=== PATIENT | female | born 1985 | race Hispanic/Latino ===

== ENCOUNTER 2022-06-23 00:13 | Day surgery (SDC) | payer OTHER, SELFPAY ==
[2022-06-09 14:24] VITALS: BMI 45.2
--- NOTE | 2022-06-09 14:27 | SUR.PREOP ---
Report to the Outpatient Waiting Room, entrance under the green pavilion located off [facility], at time _0845 on date _06/23/22 . Planned Procedure Time: _1045 . Time changes happen often and if your time is changed the preop area will call you the afternoon before. - You and your visitor will be asked to self-screen and do not enter if you have any COVID symptoms. - Only one visitor is requested with a max of two and NO children visitors are allowed at this time. - The patient visitor may be requested to leave or wait in car when not with patient due to distancing restrictions. - A mask is optional within the hospital. Patients may have clear liquids (water, carbonated beverages, clear teas, apple juice) until 3 hours prior to surgery with a maximum of 20 ounces. - No food from midnight until time of surgery - Infants may have breast milk until 4 hours before surgery, formula 6 hours prior to surgery. - Children will be allowed to drink immediately following surgery. If applicable, please bring a bottle or sippy cup to assist with drinking. Juice, water, soda, and popsicles are readily available. For infants on formula, please bring formula the day of surgery. Pacifiers are allowed. Take the following medications with a SIP of water the morning of surgery: ___n/a Medications to discontinue per physician n/a Date to take last dose__n/a Please no make-up, nail belgian, hairspray, perfume, deodorant, or body powder the day of surgery. No jewelry (including any body piercings) or valuables the day of surgery, leave them at home. Please take a shower or bath the night before, or the morning of, surgery with an antibacterial soap. Wear comfortable, loose fitting clothing. Children are encouraged to wear pajamas. - Jewelry must be removed prior to entering the operating room. Rings and piercings that are not removed may be cut off. - The hospital will not accept responsibility for valuables. - Please leave all valuables, including medications, at home the day of surgery. If you are going home after surgery, a licensed auto parts delivery driver must drive you home. - NO public transportation without another adult if you receive anesthesia. - We recommend that an adult stay with you for 24 hours following discharge. - We also recommend that you do not drive, make important decision, drink alcoholic beverages, or take any drugs that were not prescribed by your health care provider for at least 24 hours after your discharge time. For Pediatric surgeries, we recommend two adults accompany the child home. Follow any additional instructions given to you from your surgeon. If you or anyone in your household have experienced Covid symptoms in the past week, please notify your surgeon or the nurse liaison at the phone number below for possible testing. Telephone instructions given to KRISHNA ÁLVAREZ__and asked if any additional questions and then verbalized understanding. Patient advised to call surgeon office or pre surgery nurse liaison [phone] if any additional questions.
--- NOTE | 2022-06-23 07:15 | PM.IMHP ---
H&P: HPI History of Present Illness Date/Time: 06/23/22 07:15 37-year-old female presents for treatment of heavy irregular vaginal bleeding. States her cycles are 5-7 days 3-5 days heavy she denies significant bleeding between her periods. Hormonal manipulation not option as she feels poorly with any type of estrogen/progesterone. Has had tubal ligation in the past. Chief Complaint: Menorrhagia Review of Systems Review of Systems: All systems reviewed & are unremarkable except as noted in HPI and below PMFSH Past Medical History Medical History Anxiety disorder Asthma Depression Surgical History Surgical History H/O bilateral salpingectomy History of excision of mass excision lipoma on upper back Hx LEEP (loop electrosurgical excision procedure), cervix, 2011 Family History Family History Mother Family history of thyroid disease Family history of obesity Sibling Family history of obesity Depression Father Family history of alcoholism Malignant neoplasm of prostate Social History Social History Smoking status: Never smoker Alcohol intake: current Alcohol use details: occasionally,once a month Substance use: never Substance use type: does not use Living arrangements: with family Additional living arrangements comments: Additional occupation/education comments: [employer] Gender identity (if verbalized by the patient): Female Sexual Orientation (if Verbalized by the Patient): Straight or Heterosexual Spiritual care concerns: No Meds Home Medications and Allergies Home Medications Medication Instructions Recorded Confirmed Type alprazolam 0.25 mg tablet 0.25 mg PO PRN PRN Insomnia 01/12/22 06/09/22 History montelukast 10 mg tablet 10 mg PO DAILY 01/12/22 06/09/22 History sertraline 100 mg tablet 100 mg PO HS 01/12/22 06/09/22 History sertraline 50 mg tablet 50 mg PO HS 01/12/22 06/09/22 History trazodone 100 mg tablet 100 mg PO QHS 01/12/22 06/09/22 History zolpidem 10 mg tablet 5 mg PO QHS 01/12/22 06/09/22 History albuterol sulfate 90 mcg/actuation 1 inh inhalation PRN PRN Shortness 03/07/22 06/09/22 History breath activated powder inhaler Of Breath Allergies Allergy/AdvReac Type Severity Reaction Status Date / Time No Known Allergies Allergy Verified 06/09/22 14:03 Exam Const: General: cooperative and healthy appearing Resp: Effort & Inspection: normal respiratory effort Auscultation: clear to auscultation bilaterally Cardio: Rate: regular rate Rhythm: regular rhythm GI: Inspection: normal to inspection Auscultation: normal bowel sounds : External Female Exam: normal external appearance Speculum Exam - Vagina: normal appearance of the vagina Speculum Exam - Cervix: normal appearance of the cervix Bimanual exam- vagina & uterus: normal bimanual exam Bimanual Exam- Adnexa, other: normal adnexae Assessment and Plan Assessment and plan (1) Menorrhagia: Code(s): N92.0 - Excessive and frequent menstruation with regular cycle Status: Acute Plan 1. Proceed with hysteroscopy with endometrial ablation. Does not need tissue sampling as EMB was done in the office.
--- NOTE | 2022-06-23 07:18 | WPDHPUPDATE1 ---
History and Physical Update Update Date/Time: 06/23/22 07:18 History and Physical has been reviewed, including an updated exam of the patient. There are NO changes in the patient's condition. Risks, benefits, and alternatives have been discussed and questions answered. Patient agrees to proceed with procedure.
[2022-06-23 08:50] VITALS: BP 127/74; PULSE 86; RESP 20; TEMP 36.4; O2SAT 100
[2022-06-23] MEDS: ACETAMINOPHEN 500 MG TABLET 1000 MG PO (09:30)
--- NOTE | 2022-06-23 09:51 | WPDANESEPPF ---
Anes - Initial Pre Proc Eval Procedure: Operation Date: 06/23/22 10:45 Proposed Procedures p Hysteroscopy Dilation and Curettage, Avani Endometrial Ablation - Bowen Treadwell MD Date/Time: 06/23/22 09:51 Surgeon: Bowen Treadwell MD Pre Op Diagnosis: menometrorrhagia Patient Data Age: 37 Gender: F Height: 1.6 m Weight: 119.3 kg Last Vital Signs Temp 36.4 C L 06/23/22 08:50 Pulse 86 06/23/22 08:50 Resp 20 06/23/22 08:50 BP 127/74 06/23/22 08:50 Pulse Ox 100 06/23/22 08:50 O2 Del Method Room Air 06/23/22 08:50 Allergies Allergy/AdvReac Type Severity Reaction Status Date / Time No Known Allergies Allergy Verified 06/23/22 09:10 Home Medications Medication Instructions Recorded Confirmed Type alprazolam 0.25 mg tablet 0.25 mg PO PRN PRN Insomnia 01/12/22 06/23/22 History montelukast 10 mg tablet 10 mg PO DAILY 01/12/22 06/23/22 History sertraline 100 mg tablet 100 mg PO HS 01/12/22 06/23/22 History sertraline 50 mg tablet 50 mg PO HS 01/12/22 06/23/22 History trazodone 100 mg tablet 100 mg PO QHS 01/12/22 06/23/22 History zolpidem 10 mg tablet 5 mg PO QHS 01/12/22 06/23/22 History albuterol sulfate 90 mcg/actuation 1 inh inhalation PRN PRN Shortness 03/07/22 06/23/22 History breath activated powder inhaler Of Breath Patient hx anesthesia problems: none Family hx anesthesia problems: none Results Review: All pre-operative results and documents have been reviewed as part of the pre-operative evaluation. [facility] Past Medical History Medical History Anxiety disorder Asthma Depression Surgical History Surgical History H/O bilateral salpingectomy History of excision of mass excision lipoma on upper back Hx LEEP (loop electrosurgical excision procedure), cervix, 2011 Family History Family History Mother Family history of thyroid disease Family history of obesity Sibling Family history of obesity Depression Father Family history of alcoholism Malignant neoplasm of prostate Social History Social History Smoking status: Never smoker Alcohol intake: current Alcohol use details: occasionally,once a month Substance use: never Substance use type: does not use Living arrangements: with family Additional living arrangements comments: Additional occupation/education comments: [employer] Gender identity (if verbalized by the patient): Female Sexual Orientation (if Verbalized by the Patient): Straight or Heterosexual Spiritual care concerns: No Anes - Eval Final PreProcedure Day of Procedure 06/23/22 09:51 Patient weight: morbidly obese Heart: regular rate and rhythm Lungs: clear to auscultation Airway: Mallampati scale class II Neurological: alert and oriented Last oral intake: >/= 8 hours ASA classification: III Emergent: no Anesthetic plan: proceed Anesthesia type and monitoring: general GIVS and standard monitoring Results Review: All pre-operative results and documents have been reviewed as part of the pre-operative evaluation. Informed Consent: The patient's anesthetic plan and its attendant risks and benefits were discussed with the patient/family/POA. Questions were solicited and answers provided to the satisfaction of the patient/family/POA.
[2022-06-23] MEDS: LACTATED RINGERS 1,000 ML 30 ML IV CONT (10:00)
[2022-06-23] MEDS: ceFAZolin 2 GM/D5W 50 ML 2 GM/50 ML BAG IVPB (10:31)
--- NOTE | 2022-06-23 10:51 | W.PM.PROC2 ---
Procedure Note - Detailed Date of Procedure 06/23/22 Pre-op Diagnosis menometrorrhagia Post-op Diagnosis Same Procedure Performed 1. Hysteroscopy 2. Endometrial ablation Surgeon Bowen Treadwell MD Anesthesia MAC Findings No endometrial abnormalities Description of Procedure Patient was prepped and draped in usual manner for this procedure. Cervix was dilated to allow the hysteroscope be placed, at which point no abnormalities were appreciated. Avani instrument was placed in the intrauterine cavity, cavity assessment was performed, and instrument was activated. At the end of the procedure thorough destruction was noted throughout. Patient was sent to recovery room in stable condition. Estimated Blood Loss 10 Drains No Packing No Pathology None sent Complications No immediate complications Condition Stable Disposition PACU [facility] Billing Surgery - Charge Forward: Surgery Billing
[2022-06-23 11:02] VITALS: BP 154/79; PULSE 88; RESP 14; O2SAT 93
[2022-06-23 11:32] VITALS: BP 136/95; PULSE 72; RESP 16
--- NOTE | 2022-06-23 11:46 | SUR.PHASEII ---
PT MEETS DISCHARGE CRITERIA AND IS WAITING ON HER RIDE
== END 2022-06-23 11:50 | disposition home or self-care (01) ==
PROVIDERS: PCP Physician Assistant; Visit Provider Obstetrics & Gynecology
PROC: 0U5B8ZZ Destruction of Endometrium, Via Natural or Artificial Opening Endoscopic (ICD-10-PCS; CPT 58563; principal; 2022-06-23 10:45)
DX: N92.1 Excessive and frequent menstruation with irregular cycle (principal); J45.909 Unspecified asthma, uncomplicated; F41.9 Anxiety disorder, unspecified; F32.A Depression, unspecified; Z79.51 Long term (current) use of inhaled steroids; E66.01 Morbid (severe) obesity due to excess calories; Z68.42 Body mass index [BMI] 45.0-49.9, adult
CPT/HCPCS: 58563; A9270; J0690; J2250; J2704; J3010; J7120

== ENCOUNTER 2022-10-08 08:28 | Emergency (ER) | payer OTHER, SELFPAY ==
[2022-10-08 08:46] VITALS: BP 140/87; PULSE 95; RESP 18; TEMP 36.4; O2SAT 100
--- NOTE | 2022-10-08 08:48 | ED.URI ---
HPI - URI/Sore Throat General Chief Complaint: Upper Respiratory Infection Stated Complaint: congestion,bilateral ear discomfort Time Seen by Provider: 10/08/22 08:45 Source: patient Mode of arrival: ambulatory Limitations: no limitations History of Present Illness HPI Narrative: Judie is a 37-year-old female patient presenting to the clinic today with complaints of congestion, bilateral ear pain, sinus pressure, and productive cough. She reports she is blowing out right green nasal drainage. She thinks she may have a sinus infection. Symptoms have been ongoing for 3 days. No known fever or chills. MD elicited complaint: cough, sore throat, rhinorrhea, nasal congestion and sinus pain Related Data Home Medications Medication Instructions Recorded Confirmed alprazolam 0.25 mg tablet 0.25 mg PO PRN PRN Insomnia 01/12/22 07/08/22 montelukast 10 mg tablet 10 mg PO DAILY 01/12/22 07/08/22 sertraline 100 mg tablet 100 mg PO HS 01/12/22 07/08/22 sertraline 50 mg tablet 50 mg PO HS 01/12/22 07/08/22 trazodone 100 mg tablet 100 mg PO QHS 01/12/22 07/08/22 zolpidem 10 mg tablet 5 mg PO QHS 01/12/22 07/08/22 albuterol sulfate 90 mcg/actuation 1 inh inhalation PRN PRN Shortness 03/07/22 07/08/22 breath activated powder inhaler Of Breath Allergies Allergy/AdvReac Type Severity Reaction Status Date / Time No Known Allergies Allergy Verified 10/08/22 08:53 Review of Systems Review of Systems: Pertinent positives per HPI. Patient denies any fever, chills, rash, headache, visual changes, dizziness, cough, shortness of breath, chest pain, palpitations, nausea, vomiting, diarrhea, constipation, abdominal pain, or any urinary issues. [facility] Past Medical History Medical History Anxiety disorder Asthma Depression Surgical History Surgical History H/O bilateral salpingectomy History of excision of mass excision lipoma on upper back History of hysteroscopy (06/23/22) hscope D&C / Ablation Hx LEEP (loop electrosurgical excision procedure), cervix, 2011 Family History Family History Mother Family history of thyroid disease Family history of obesity Sibling Family history of obesity Depression Father Family history of alcoholism Malignant neoplasm of prostate Social History Social History Smoking status: Never smoker Alcohol intake: current Alcohol use details: occasionally,once a month Substance use: never Substance use type: does not use Living arrangements: with family Additional living arrangements comments: Occupation/Education: occupation Additional occupation/education comments: [employer] Gender identity (if verbalized by the patient): Female Sexual Orientation (if Verbalized by the Patient): Straight or Heterosexual Spiritual care concerns: No Comments At the time of my signature, I reviewed and agree with the nursing past medical, surgical, social, and family history. There is no relevant family history pertinent to the patient complaint. Exam Narrative: General: Well-developed, well nourished, in no apparent distress Head: Normocephalic, atraumatic Eyes: Pupils equally round and reactive to light bilaterally, EOM intact, sclera and conjunctive clear, no discharge, lids normal Ears: TMs intact and clear, ear canals clear, no drainage, grossly hearing normal. Nose: Nares patent, no discharge, no inflammation, no sinus tenderness. Mouth: Oral pharynx without lesions or masses, good dentition, MMM. Neck: Supple, trachea midline, no enlargement of anterior or posterior cervical nodes, no thyroid masses or goiter palpable. Cardio: Regular rate and rhythm, s1 and s2 normal, no murmur appreciated. Resp: Clear to ausc
--- NOTE | 2022-10-08 08:57 | PC.NURSE ---
Patient denies to give updated medical history at this time. Patient states that there is nothing that is relevant to this visit . Patient educated on importance of providing medical history in order to give best care. Patient still declines to provide updated history at this time.
== END 2022-10-08 08:54 | disposition home or self-care (01) ==
PROVIDERS: Emergency Provider Nurse Practitioner Family; PCP Physician Assistant
DX: H66.92 Otitis media, unspecified, left ear (principal); J06.9 Acute upper respiratory infection, unspecified; J45.909 Unspecified asthma, uncomplicated; F41.9 Anxiety disorder, unspecified; F32.A Depression, unspecified
CPT/HCPCS: 99213; G0463

== ENCOUNTER 2024-02-19 14:53 | Outpatient (CLI) | payer OTHER, SELFPAY ==
--- NOTE | ~2024-02-19 | MM_ITS ---
EXAMINATION: MM screening bc BI w [employer] HISTORY: Screening TECHNIQUE: Craniocaudal and mediolateral oblique 3-D tomosynthesis images were obtained and synthetic 2-D images were generated. CAD analysis was submitted and interpreted. COMPARISON: No prior mammogram is available for comparison at this institution. BREAST PARENCHYMAL COMPOSITION: There are scattered areas of fibroglandular density. FINDINGS: There is no evidence of suspicious mass, calcification, or architectural distortion to sugg est malignancy in either breast. There has been no suspicious interval change. IMPRESSION: 1. No mammographic evidence of malignancy. 2. Recommend routine screening mammography in one year. BI-RADS Category 1: Negative Reviewed, dictated and finalized at location B.
== END 2024-02-19 14:54 | disposition home or self-care (01) ==
LOC: ANHIMG 14:54
PROVIDERS: PCP Physician Assistant; Visit Provider Obstetrics & Gynecology
DX: Z12.31 Encounter for screening mammogram for malignant neoplasm of breast (principal)
CPT/HCPCS: 77063; 77067

== ENCOUNTER 2024-11-05 13:55 | Emergency (ER) | payer OTHER, SELFPAY ==
--- OUTSIDE RECORDS SUMMARY | 2024-11-05 14:12 | XMS_ITS | Data Portability ---
Author Organization [facility] Kids Note, Main Office Address [address] [place] [address] Assessment No assessment recorded. Plan of Treatment Reminders Order Date Submit Date Provider Last Modified By Organization Details Last Modified Time Details Appointments None recorded. Lab lipid panel, serum 023 023 [facility], [address], [address], 3 13:28:45 CMP, serum or plasma 023 023 [facility], [address], [address], 3 13:28:46 CBC w/ auto diff 023 023 [facility], [address], [address], 3 13:28:48 TSH + free T4, serum 023 023 [facility], [address], [address], 3 13:28:44 HbA1c (hemoglob in A1c), blood 023 023 [facility], [address], [address], 3 13:28:47 insulin, serum 023 023 [facility], [address] [facility] [address], [place], [address], 13:28:49 Referral None recorded. Procedures None recorded. Surgeries None recorded. Imaging None recorded. Medication Orders Bactrim DS 800 mg-160 mg tablet 023 023 [id number], [address] [facility], [place], [place], [id number], 10:05:36 Patient TargetsNo targets recorded. Patient InstructionsNo instructions recorded. Reason for Referral None Reported. Results Created Date Observation Date Name Description Value Unit Range Abnormal Flag Note LastModifiedBy Organization Detail LastModifiedTime 10/27/1910/27/2022 TSH+F REE T4 TSH 2.88 mIU/L normal Refer ence Range > or = 20 Years 0.40- 4.50 Pregn mary Range s First trime ster 0.26- 2.66 Secon d trime ster 0.55- 2.73 Third trime ster 0.43- 2.91 Not Available [facility] [address], [address], 10/27/2022 13:28:44 10/27/1910/27/2022 TSH+F REE T4 T4, free 0.8 NG/dL 0.8-1. 8 normal Not Available [facility] [place] [address] [place], [address], 10/27/2022 13:28:44 10/27/1910/27/2022 LIPID PANEL WITH RATIO S cholesterol, total 200 mg/dL <200 high Not Available [facility] [address] [place], [address], 10/27/2022 13:28:45 10/27/1910/27/2022 LIPID PANEL WITH RATIO S HDL cholesterol 73 mg/dL > or = 50 normal Not Available [facility] [address] [place], [address], 10/27/2022 13:28:45 10/27/19 23 10/27/2022 LIPID PANEL WITH RATIO S triglyceride s 71 mg/dL <150 normal Not Available [address], [address], 10/27/2022 13:28:45 10/27/19 23 10/27/2022 LIPID PANEL WITH RATIO S LDL-choleste rol 111 mg/dL _(magalis c) high Refer ence range : <100 Jovani able range <100 mg/dL for prima ry preve ntion ; <70 mg/dL for patie nts with CHD or diabe tic patie nts with > or = 2 CHD risk facto rs. LDL-C is now calcu lated using the Radha n-Hop kins calcu latio n, which is a valid ated novel metho d provi ding nolan r accur acy than the Fried anirudh equat ion in the estim ation of LDL-C . Radha williamson SS et al. JARAD. 2013; 310(1 9): 2061- 2068 (http ://ed ucati on.Qu estDi Epos. com/f aq/FA Q164) Not Available [address], [address], 10/27/2022 13:28:45 10/27/19 23 10/27/2022 LIPID PANEL WITH RATIO S chol/HDLC ratio 2.7 (calc ) <5.0 normal Not Available [address], [address], 10/27/2022 13:28:45 10/27/19 23 10/27/2022 LIPID PANEL WITH RATIO S LDL/HDL ratio 1.5 (calc ) Below avera ge Risk: <2.34 Twain ge Risk: 2.35- 4.12 Moder ate Risk: 4.13- 5.56 High Risk: >5.57 Not Available [address], [address], 10/27/2022 13:28:45 10/27/19 23 10/27/2022 LIPID PANEL WITH RATIO S non HDL cholesterol 127 mg/dL _(magalis c) <130 normal For patie nts with diabe darline plus 1 major ASCVD risk facto r, treat ing to a non-H DL-C goal of <100 mg/dL (LDL- C of <70 mg/dL ) is consi beto bennett optio n. Not Available [address], [address], 10/27/2022 13:28:45 10/27/19 23 10/27/2022 COMPR EHENS ZABRINA METAB OLIC PANEL glucose 86 mg/dL 65-99 normal Fasti ng refer ence inter han Not Available [address], [address], 10/27/2022 13:28:46 10/27/19 23 10/27/2022 COMPR EHENS ZABRINA METAB OLIC PANEL urea nitrogen (BUN) 12 mg/dL 7-25 normal Not Available [address], [address], 10/27/2022 13:28:46 10/27/19 23 10/27/2022 COMPR EHENS ZABRINA METAB OLIC PANEL creatinine 0.70 mg/dL 0.50-0 .97 normal Not Available [address], [address], 10/27/2022 13:28:46 10/27/19 23 10/27/2022 COMPR EHENS ZABRINA METAB OLIC PANEL eGFR 113 mL/mi n/1.7 3m2 > or = 60 normal The eGFR is based on the CKD-E PI 2020 tara burroughs. To calcu late the new eGFR from a previ ous Creat inine or Cysta tin C resul t, go to https ://kisha cruz.o christiana/bean okeefe/ kdoqi /gfr% 5Fcal culat or Not Available [address], [address], 10/27/2022 13:28:46 10/27/19 23 10/27/2022 COMPR EHENS ZABRINA METAB OLIC PANEL BUN/creatini ne ratio NOT APPLIC ABLE (calc ) 6-22 Not Available [address], [address], 10/27/2022 13:28:46 10/27/19 23 10/27/2022 COMPR EHENS ZABRINA METAB OLIC PANEL sodium 137 mmol/ L 135-14 6 normal Not Available [address], [address], 10/27/2022 13:28:46 10/27/19 23 10/27/2022 COMPR EHENS ZABRINA METAB OLIC PANEL potassium 3.9 mmol/ L 3.5-5. 3 normal Not Available [address], [address], 10/27/2022 13:28:46 10/27/19 23 10/27/2022 COMPR EHENS ZABRINA METAB OLIC PANEL chloride 104 mmol/ L 98-110 normal Not Available [address], [address], 10/27/2022 13:28:46 10/27/19 23 10/27/2022 COMPR EHENS ZABRINA METAB OLIC PANEL carbon dioxide 26 mmol/ L 20-32 normal Not Available [address], [address], 10/27/2022 13:28:46 10/27/19 23 10/27/2022 COMPR EHENS ZABRINA METAB OLIC PANEL calcium 9.2 mg/dL 8.6-10 .2 normal Not Available [address], [address], 10/27/2022 13:28:46 10/27/19 23 10/27/2022 COMPR EHENS ZABRINA METAB OLIC PANEL protein, total 7.1 g/dL 6.1-8. 1 normal Not Available [address], [address], 10/27/2022 13:28:46 10/27/19 23 10/27/2022 COMPR EHENS ZABRINA METAB OLIC PANEL albumin 4.3 g/dL 3.6-5. 1 normal Not Available [address], [address], 10/27/2022 13:28:46 10/27/19 23 10/27/2022 COMPR EHENS ZABRINA METAB OLIC PANEL globulin 2.8 g/dL_ (calc ) 1.9-3. 7 normal Not Available [address], [address], 10/27/2022 13:28:46 10/27/19 23 10/27/2022 COMPR EHENS ZABRINA METAB OLIC PANEL albumin/glob ulin ratio 1.5 (calc ) 1.0-2. 5 normal Not Available [address], [address], 10/27/2022 13:28:46 10/27/19 23 10/27/2022 COMPR EHENS ZABRINA METAB OLIC PANEL bilirubin, total 0.9 mg/dL 0.2-1. 2 normal Not Available [address], [address], 10/27/2022 13:28:46 10/27/19 23 10/27/2022 COMPR EHENS ZABRINA METAB OLIC PANEL alkaline phosphatase 64 U/L 31-125 normal Not Available [address], [address], 10/27/2022 13:28:46 10/27/19 23 10/27/2022 COMPR EHENS ZABRINA METAB OLIC PANEL AST 18 U/L 10-30 normal Not Available [address] [place], [address], 10/27/2022 13:28:46 10/27/19 23 10/27/2022 COMPR EHENS ZABRINA METAB OLIC PANEL ALT 17 U/L 6-29 normal Not Available [facility] [address] [place], [address], 10/27/2022 13:28:46 10/27/19 23 10/27/2022 HEMOG LOBIN A1C hemoglobin A1C 5.0 %_of_ total _HGB <5.7 normal For the purpo se of scree elicia for the prese nce of diabe darline: <5.7% Consi stent with the absen ce of diabe darline 5.7-6 .4% Consi stent with incre ased risk for diabe darline (pred iabet es) > or =6.5% Consi stent with diabe darline This assay resul t is consi stent with a decre ased risk of diabe darline. Curre ntly, no conse nsus exist s regar channing use of hemog lobin A1c for diagn osis of diabe darline in child jose. Accor ding to Ameri can Diabe darline Assoc iatio n (ADA) guide lines , hemog lobin A1c <7.0% repre sents optim al contr ol in non-p regna nt diabe tic patie nts. Diffe rent metri cs may apply to speci fic patie nt popul ation s. Stand ards of Medic al Care in Diabe darline(A DA). Not Available [facility] [address] [place], [address], 10/27/2022 13:28:47 10/27/19 23 10/27/2022 CBC (INCL UDES DIFF/ PLT) white blood cell count 9.3 thous and/u L 3.8-10 .8 normal Not Available [facility] [address] [place], [address], 10/27/2022 13:28:48 10/27/19 23 10/27/2022 CBC (INCL UDES DIFF/ PLT) red blood cell count 4.49 bela on/uL 3.80-5 .10 normal Not Available [address], [address], 10/27/2022 13:28:48 10/27/19 23 10/27/2022 CBC (INCL UDES DIFF/ PLT) hemoglobin 13.5 g/dL 11.7-1 5.5 normal Not Available [address], [address], 10/27/2022 13:28:48 10/27/19 23 10/27/2022 CBC (INCL UDES DIFF/ PLT) hematocrit 40.4 % 35.0-4 5.0 normal Not Available [address], [address], 10/27/2022 13:28:48 10/27/19 23 10/27/2022 CBC (INCL UDES DIFF/ PLT) MCV 90.0 fL 80.0-1 00.0 normal Not Available [facility] [address], [address], 10/27/2022 13:28:48 10/27/19 23 10/27/2022 CBC (INCL UDES DIFF/ PLT) MCH 30.1 pg 27.0-3 3.0 normal Not Available [facility] [address], [address], 10/27/2022 13:28:48 10/27/19 23 10/27/2022 CBC (INCL UDES DIFF/ PLT) MCHC 33.4 g/dL 32.0-3 6.0 normal Not Available [facility] [address], [address], 10/27/2022 13:28:48 10/27/19 23 10/27/2022 CBC (INCL UDES DIFF/ PLT) RDW 13.5 % 11.0-1 5.0 normal Not Available [facility] [address], [address], 10/27/2022 13:28:48 10/27/19 23 10/27/2022 CBC (INCL UDES DIFF/ PLT) platelet count 281 thous and/u L 140-40 0 normal Not Available [address], [address], 10/27/2022 13:28:48 10/27/19 23 10/27/2022 CBC (INCL UDES DIFF/ PLT) MPV 9.3 fL 7.5-12 .5 normal Not Available [address], [address], 10/27/2022 13:28:48 10/27/19 23 10/27/2022 CBC (INCL UDES DIFF/ PLT) absolute neutrophils 5552 cells /uL 1500-7 800 normal Not Available [address], [address], 10/27/2022 13:28:48 10/27/19 23 10/27/2022 CBC (INCL UDES DIFF/ PLT) absolute lymphocytes 3162 cells /uL 850-39 00 normal Not Available [address], [address], 10/27/2022 13:28:48 10/27/19 23 10/27/2022 CBC (INCL UDES DIFF/ PLT) absolute monocytes 512 cells /uL 200-95 0 normal Not Available [address], [address], 10/27/2022 13:28:48 10/27/19 23 10/27/2022 CBC (INCL UDES DIFF/ PLT) absolute eosinophils 28 cells /uL 15-500 normal Not Available [address], [address], 10/27/2022 13:28:48 10/27/19 23 10/27/2022 CBC (INCL UDES DIFF/ PLT) absolute basophils 47 cells /uL 0-200 normal Not Available [facility] [address], [address], 10/27/2022 13:28:48 10/27/19 23 10/27/2022 CBC (INCL UDES DIFF/ PLT) neutrophils 59.7 % normal Not Available [facility] [address], [address], 10/27/2022 13:28:48 10/27/19 23 10/27/2022 CBC (INCL UDES DIFF/ PLT) lymphocytes 34.0 % normal Not Available [facility] [address], [address], 10/27/2022 13:28:48 10/27/19 23 10/27/2022 CBC (INCL UDES DIFF/ PLT) monocytes 5.5 % normal Not Available [facility] [address], [address], 10/27/2022 13:28:48 10/27/19 23 10/27/2022 CBC (INCL UDES DIFF/ PLT) eosinophils 0.3 % normal Not Available [facility] [address], [address], 10/27/2022 13:28:48 10/27/19 23 10/27/2022 CBC (INCL UDES DIFF/ PLT) basophils 0.5 % normal Not Available [facility] [address], [address], 10/27/2022 13:28:48 10/27/19 23 10/27/2022 INSUL IN insulin 13.5 uIU/m L normal Refer ence Range < or = 18.4 Risk: Optim al < or = 18.4 Moder ate NA High >18.4 Adult cardi ovasc ular event risk categ ory cut point s (opti mal, moder ate, high) are based on Insul in Refer ence Inter han stud[facility]. Not Available [facility] [address], [place], [address], 10/27/2022 13:28:48 10/03/19 21 10/02/2020 US, pelvi s, trans abdom inal + trans vagin al No observ ation record ed. [id number] [facility] [address] [place], [address], 08/24/2022 03:00:42 10/03/19 21 10/02/2020 US, obste tric, trans vagin al No observ ation record ed. [id number] [facility] [address] [place], [address], 08/24/2022 03:00:42 10/03/19 21 10/02/2020 US, [facility] [address] [place] [address] [phone] Patien t Name: KRISHNA HOPKINS Access ion #: [id number] Sex: F : 1984 2 Locati on: RAD Attend ing Physic jose: JEANINE COOPER Orderi Physic jose: JEANINE COOPER Exam Date: 10/03/19 21 8:41 AM Exam Name: US TRANSV AGINAL Admitt ing Diagno sis(es ): RADIOL OGY REPORT - FINAL EXAM: US TRANSV AGINAL HISTOR Y: right lower quadra nt pain COMPAR JACQUELINE: None availa ble. TECHNI QUE: Transv aginal pelvic ultras ound was perfor med. FINDIN GS: The anteve rted uterus measur es 7.3 x 4.3 x 4.6 cm. The endome trium measur es 12.4 mm in thickn ess. The right ovary measur es 1.8 x 1.2 x 1.7 cm. The left ovary measur es 2.8 x 1.4 x 2.2 cm. Both ovarie s are normal in appear ance and demons trate normal color Dopple r blood flow. Trace fluid is noted adjace nt to each ovary. Page 1 of 2 [facility] mayito Name: KRISHNA HOPKINS ion #: [id number] Sex: F : 1984 2 Exam Date: 10/03/19 8:41 AM Exam Name: US TRANSV AGINAL Admitt ing Diagno sis(es ): IMPRES JUAN C: Grossl y normal sonogr aphic appear ance of the uterus and ovarie s. Create d and electr onical ly signed by: Vinnie Rivera ch, DO Signed Date: 10/03/19 9:07 AM (CT) Dictat ed by: Vinnie Rivera ch, DO (CT) (CT) Page 2 of 2 [id number] [facility] ([facility] [address] [place], [address], 08/24/2022 03:00:42 Result Notes None recorded. Problems Name Problem SNOMED Code Status Onset Date Resolution Date Notes Provider Name and Address Organization Details Recorded Time Acute sinusitis 54655603 Active 2021 Not Available [facility] 3 02:53:22 Past history of miscarriag e 782119976 Active Not Available [facility] 3 02:53:22 Mood swings 22180923 Active Not Available [facility] 3 02:53:22 Bruxism 409787907 Active Not Available [facility] 3 02:53:22 Insomnia 087273653 Active Not Available [facility] 3 02:53:22 Asthma 125913897 Active Not Available [facility] 3 02:53:22 Benign essential hypertensi on complicati ng , childbirth and the puerperium - not delivered 473033089 Completed Not Available [facility] 3 02:53:22 Mixed anxiety and depressive disorder 259912450 Active RADHA Portillo null, [employer] 3 11:50:38 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 Procedures Surgical History Date Name Laterality Status Provider Name and Address Organization Details Recorded Time 2 dilation and curettage completed RADHA Portillo [employer] 10/20/2022 09:31:37 0 SECURITY RISK ANALYST Surgery completed Not Available [facility] 08/25/19 02:47:42 0 Date of Last Pap Smear completed Not Available [facility] 08/24/2022 02:47:39 SECURITY RISK ANALYST Surgery completed Not Available [facility] 08/24/2022 02:47:42 Imaging Results Imaging Date Name Status LastModified by Organization Details LastModified Time 10/02/2020 US, pelvis, transabdominal + transvaginal completed [id number] [facility] [address] [place], [address], 08/24/2022 03:00:42 10/02/2020 US, obstetric, transvaginal completed [id number] [facility] [address] [place], [address], 08/24/2022 03:00:42 10/02/2020 US, transvaginal completed [id number] [facility] ([facility] [address] [place], [address], 08/24/2022 03:00:42 Procedure Notes None recorded. Medical Equipment None Reported. Allergies No known drug allergies Medications Name Sig Start Date Stop Date Status Note LastModified by Organization Details LastModified Time buspirone 5 mg tablet Take 1 tablet twice a day by oral route. 12/28 completed Not Available Not Available Not Available trazodone 50 mg tablet take 1-2 tablets po qhs active Not Available Not Available No t Available azithromyci n 250 mg tablet TAKE 2 TABLETS (500 MG) BY ORAL ROUTE ONCE DAILY FOR 1 DAY THEN 1 TABLET (250 MG) BY ORAL ROUTE ONCE DAILY FOR 4 DAYS active Not Available Not Available No t Available ibuprofen 800 mg tablet 09/22 completed Not Available Not Available Not Available fluconazole 150 mg tablet TAKE 1 TABLET BY MOUTH EVERY DAY active Not Available Not Available No t Available benzonatate 200 mg capsule Take 1 capsule 3 times a day by oral route as needed. active Not Available Not Available No t Available citalopram 10 mg tablet active Not Available Not Available Not Available hydrocodone 5 mg-acetamin ophen 325 mg tablet active Not Available Not Available No t Available ondansetron HCl 4 mg tablet TAKE ONE TABLET BY MOUTH EVERY 6 HOURS NEEDED active Not Available Not Available No t Available prednisone 20 mg tablet TAKE 2 TABLETS BY MOUTH DAILY FOR 5 DAYS 10/19 completed Not Available Not Available Not Available sertraline 100 mg tablet TAKE 1 TABLET BY MOUTH EVERY DAY active Not Available Not Available No t Available Pyridium 200 mg tablet Take 1 tablet 3 times a day by oral route for 3 days. 10/09 completed Not Available Not Available Not Available Anucort-HC 25 mg suppository UNWRAP AND INSERT 1 SUPPOSITO RY RECTALLY TWICE DAILY 10/19 completed Not Available Not Available Not Available ciprofloxac in 500 mg tablet Take 1 tablet every 12 hours by oral route. active Not Available Not Available No t Available sulfamethox azole 800 mg-trimetho prim 160 mg tablet TAKE 1 TABLET BY MOUTH EVERY 12 HOURS active Not Available Not Available No t Available oxycodone-a cetaminophe n 5 mg-325 mg tablet 09/22 completed Not Available Not Available Not Available alprazolam 0.5 mg tablet Take 1 tablet 3 times a day by oral route as needed. active Not Available Not Available No t Available amoxicillin 875 mg tablet TAKE 1 TABLET BY MOUTH EVERY 12 HOURS 10/19 completed Not Available Not Available Not Available alprazolam 0.25 mg tablet TAKE 1 TABLET BY MOUTH EVERY DAY NEEDED active Not Available Not Available No t Available trazodone 100 mg tablet TAKE 1 TABLET BY MOUTH AT BEDTIME NEEDED active Not Available Not Available No t Available benzonatate 100 mg capsule 08/29 completed Not Available Not Available Not Available hydrocodone 7.5 mg-acetamin ophen 325 mg tablet active Not Available Not Available No t Available cephalexin 500 mg capsule 08/29 completed Not Available Not Available Not Available pantoprazol e 40 mg tablet,mk yed release take one tab daily 10/09 completed Not Available Not Available Not Available oseltamivir 75 mg capsule Take 1 capsule every day by oral route for 10 days. 10/19 completed Not Available Not Available Not Available orphenadrin e citrate ER 100 mg tablet,exte nded release active Not Available Not Available Not Available sertraline 25 mg tablet 01/02 completed Not Available Not Available Not Available diclofenac sodium 75 mg tablet,mk yed release Take 1 tablet twice a day by oral route with meals. active Not Available Not Available No t Available montelukast 10 mg tablet TAKE 1 TABLET BY MOUTH DAILY active Not Available Not Available No t Available acyclovir 200 mg capsule Take 1 capsule po daily, but may increase to 2 tabs po bid for 3-5 days PRN fever blister flare up active Not Available Not Available No t Available zaleplon 10 mg capsule 01/02 completed Not Available Not Available Not Available zolpidem 5 mg tablet TAKE 1 TABLET BY MOUTH AT BEDTIME NEEDED active Not Available Not Available No t Available Low-Ogestre l (28) 0.3 mg-30 mcg tablet TAKE ONE TABLET BY MOUTH EVERY DAY 08/29 completed Not Available Not Available Not Available zolpidem 10 mg tablet TAKE 1 TABLET BY MOUTH EVERY DAY AT BEDTIME 10/19 completed Not Available Not Available Not Available methylpredn isolone 4 mg tablets in a dose pack FOLLOW PACKAGE DIRECTION S active Not Available Not Available No t Available albuterol sulfate HFA 90 mcg/actuati on aerosol inhaler INHALE 2 PUFFS BY MOUTH EVERY 6-8 HOURS NEEDED active Not Available Not Available No t Available Tussionex Pennkinetic ER 10 mg-8 mg/5 mL suspension, extended release Take 5 mL every 12 hours by oral route. 04/22 completed Not Available Not Available Not Available ondansetron 4 mg disintegrat ing tablet 01/02 completed Not Available Not Available Not Available cefdinir 300 mg capsule Take 2 capsules every day by oral route. 04/22 completed Not Available Not Available Not Available sertraline 50 mg tablet TAKE 1 TABLET BY MOUTH EVERY DAY active Not Available Not Available No t Available doxycycline hyclate 100 mg tablet 08/29 completed Not Available Not Available Not Available naproxen 500 mg tablet active Not Available Not Available Not Available metoclopram genny 10 mg tablet Take 1 tablet every 6 hours by oral route as needed. active Not Available Not Available No t Available amoxicillin 875 mg-potassiu m clavulanate 125 mg tablet TAKE 1 TABLET BY MOUTH EVERY 12 HOURS FOR 10 DAYS 10/19 completed Not Available Not Available Not Available hydroxyzine pamoate 25 mg capsule 01/02 completed Not Available Not Available Not Available Sprintec (28) 0.25 mg-0.035 mg tablet active Not Available Not Available Not Available bupropion HCl XL 150 mg 24 hr tablet, extended release 08/29 completed Not Available Not Available Not Available nitrofurant oin monohydrate /macrocryst als 100 mg capsule Take 1 capsule every 12 hours by oral route. 01/02 completed Not Available Not Available Not Available duloxetine 30 mg capsule,del ayed release 01/02 completed Not Available Not Available Not Available eszopiclone 3 mg tablet TAKE ONE TABLET BY MOUTH EVERY NIGHT AT BEDTIME 01/02 completed Not Available Not Available Not Available dexmethylph enidate ER 10 mg capsule,ext ended release [id number] active Not Available Not Available Not Available zolpidem ER 12.5 mg tablet,exte nded release,mul tiphase Take 1 tablet every day by oral route at bedtime. 01/02 completed Not Available Not Available Not Available Zyrtec daily 09/04 completed Not Available Not Available Not Available aripiprazol e 2 mg tablet TAKE 1 TABLET BY MOUTH EVERY DAY active Not Available Not Available No t Available Xyzal 01/02 completed Not Available Not Available Not Available Adacel (Tdap Adolesn/Jose Cruz lt)(PF)2 Lf-(2.5-5-3 -5)-5 Lf/0.5 mL IM syringe active Not Available Not Available N ot Available Gildess FE 07/15 (28) 1 mg-20 mcg (21)/75 mg (7) tablet Take 1 tablet every day by oral route. active Not Available Not Available No t Available Se- 19 (with docusate) 29 mg iron-1 mg-25 mg tablet Take 1 tablet every day by oral route. active Not Available Not Available No t Available Se-Manuel 19 Chewable 29 mg iron-1 mg tablet Take 1 tablet every day by oral route. active Not Available Not Available No t Available ZzzQuil takes one daily 2015 active Not Available Not Available Not Avai lable Nasacort 55 mcg nasal spray aerosol 2 sprays each nostril each evening. 02/28 completed Not Available Not Available Not Available Fluvirin 9964-3837(P F) 45 mcg (15 mcg x3)/0.5 mL intramuscul ar syringe active Not Available Not Available N ot Available albuterol sulfate 90 mcg/actuati on breath activated powder inhaler Inhale 2 puffs every 4 hours by inhalatio n route as needed. 02/28 completed Not Available Not Available Not Available Fluzone Quad 6507-7516 60 mcg (15 mcg x 4)/0.5 mL IM suspension 12/28 completed Not Available Not Available Not Available Fluzone Quad 6542-4131 60 mcg (15 mcg x 4)/0.5 mL IM suspension 11/02 completed Not Available Not Available Not Available Fluzone Quad (PF) 60 mcg (15 mcg x 4)/0.5 mL IM syringe PHARMACY ADMINISTE RED active Not Available Not Available No t Available Vitals Date Recorded Body height Body temperature Body mass index (BMI) Body weight Respiratory rate Oxygen saturation Oxygen saturation in Arterial blood by Pulse oximetry Heart rate Systolic blood pressure Diastolic blood pressure Provider Name and Address Organization Details Last Updated DateTime 3 160.02 cm 98 [degF] 37.4 kg/m2 96950.9 9 g 16 /min 98 % 98 % 78 /min 128 mm[Hg] 80 mm[Hg] RADHA Portillo [facility] Kids Note 3 09:33:06 Date Recorded Body mass index (BMI) Body height Body temperature Body weight Systolic blood pressure Diastolic blood pressure Provider Name and Address Organization Details Last Updated DateTime 1 45.7 kg/m2 160.02 cm 98.3 [degF] 194261. 83 g 122 mm[Hg] 74 mm[Hg] Not Available [facility] 3 02:50:39 Date Recorded Body mass index (BMI) Body height Body temperature Body weight Systolic blood pressure Diastolic blood pressure Provider Name and Address Organization Details Last Updated DateTime 1 46.4 kg/m2 160.02 cm 97.3 [degF] 225929. 2 g 126 mm[Hg] 78 mm[Hg] Not Available [facility] 3 02:50:39 Date Recorded Body mass index (BMI) Body height Oxygen saturation Oxygen saturation in Arterial blood by Pulse oximetry Heart rate Respiratory rate Body temperature Body weight Systolic blood pressure Diastolic blood pressure Provider Name and Address Organization Details Last Updated DateTime 1 46.5 kg/m2 160.02 cm 96 % 96 % 89 /min 16 /min 98 [degF] 434006. 64 g 128 mm[Hg] 82 mm[Hg] Not Available [facility] 3 02:50:39 Date Recorded Body mass index (BMI) Body height Oxygen saturation Oxygen saturation in Arterial blood by Pulse oximetry Heart rate Body temperature Body weight Systolic blood pressure Diastolic blood pressure Provider Name and Address Organization Details Last Updated DateTime 1 46.6 kg/m2 160.02 cm 98 % 98 % 80 /min 98 [degF] 086969. 87 g 120 mm[Hg] 80 mm[Hg] Not Available [facility] 3 02:50:39 Social History Question Answer Notes LastModified by Organizat ion Details LastModified Time Tobacco Smoking Status Never Smoker KIKA Lindsay, [facility] Kids Note 10/20/2022 09:26:28 What Is Your Level Of Caffeine Consumption? Moderate [id number] Information not available 08/24/2022 How Much Tobacco Do You Chew? None [id number] Information not available 08/24/2022 In The 14 Days Before Symptom Onset, Have You Had Close Contact With A Laboratory-confirm ed COVID-19 While That Case Was Ill? No Information n ot available 10/20/2022 In The 14 Days Before Symptom Onset, Have You Had Close Contact With A Person Who Is Under Investigation For COVID-19 While That Person Was Ill? No Information not available 10/20/2022 What Type Of Diet Are You Following? REGULAR [id number] Information not available 08/24/2022 Which Illicit Or Recreational Drugs Have You Used? None Information not available 10/20/2022 Have There Been Any Changes To Your Family Or Social Situation? No Information no t available 10/20/2022 Do You Use Insect Repellent Routinely? No Information not available 10/20/2022 Do You Have Smoke And Carbon Monoxide Detectors In Your Home? Yes Information not available 10/20/2022 How Much Tobacco Do You Smoke? No [id number] Information not available 08/24/2022 Do You Use Sunscreen Routinely? Yes Information not available 10/20/2022 Have You Recently Traveled Abroad? No Information not available 10/20/2022 Do You Have Any Dietary Restrictions? No Information not available 10/20/2022 Sex: Unknown Functional Status Question Answer Note LastModified by Organizat ion Details LastModified Time Do you use any illicit or recreational drugs? No Information not available 10/20/2022 Do you or have you ever used any other forms of tobacco or nicotine? No Information not available 10/20/2022 What is your level of alcohol consumption? Occasional [id number] Information not available 08/24/2022 Do you or have you ever used smokeless tobacco? Never used smokeless tobacco [id number] Information not available 08/24/2022 Are you currently employed? 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 Never used electronic cigarettes Information not available 10/20/2022 What is your exercise level? Occasional [id number] Information not available 08/24/2022 Mental Status None recorded. Family History Relationship Description Onset Age of this Age Resolved Age Notes LastModified by Organization Details LastModified Time Father Carcinoma of prostate Not available 2022 09:26:28 Unspecified Relation Hypertensive disorder [id number] Not available 08/24/2022 02:47:46 Unspecified Relation Myocardial infarction [id number] Not available 08/24/2022 02:47:46 Mother Malignant neoplasm of skin [id number] Not available 10/20 09:33:50 Notes:no new Medical History Condition Response ANXIETY DISORDER Y ASTHMA Y URINARY/BLADDER/KIDNEY PROBLEMS Y OTHER # 1 Y SLEEP DISORDER Y DEPRESSION (INCLUDING POST ) Y HEARTBURN / REFLUX Y Gynecological History Statement/Question Response Abnormal Pap Y Date of Last Pap Smear 08/30/2019 Current Control Method Sterilizati on Age at Menarche 10 Date of LMP 10/02/2020 Obstetrics History GPAL:G 2 P 1 0 1 1 Type Value Full Term 1 Spontaneous 1 Living 1 Total 2 Immunizations Vaccine Type Date Status Note Provider Nam e and Address Organization Details Recorded Time COVID-19, mRNA, LNP-S, PF, 100 mcg/0.5mL dose or 50 mcg/0.25mL dose 1 completed Not Available [facility] 08/24/2022 03:00:05 COVID-19, mRNA, LNP-S, PF, 100 mcg/0.5mL dose or 50 mcg/0.25mL dose 1 completed Not Available [facility] 08/24/2022 03:00:06 influenza, unspecified formulation 0 completed Not Available [facility] 08/24/2022 03:00:06 influenza, unspecified formulation 5 completed Not Available [facility] 08/24/2022 03:00:06 influenza, unspecified formulation 7 completed Not Available [facility] 08/24/2022 03:00:06 Past Encounters Encounter ID Performer Location Encounter Start Date Encounter Closed Date Diagnosis/Indication Diagnosis SNOMED-CT Code Diagnosis ICD10 Code Diagnosis Note [id number] [facility]_ DEFAULT_1 _1 , 09/22/2020 00:00:00 09/22/2020 09:55:33 [id number] [facility]_ DEFAULT_1 _1 , 10/20/2020 00:00:00 10/20/2020 17:55:52 [id number] BRAYDEN Hill [facility] [address] [place] [address] 11/02/2020 00:00:00 11/20/2020 01:32:32 [id number] BRAYDEN Hill [facility] [address] [place] [address] 05/27/2021 00:00:00 06/22/2021 23:53:16 [id number] BRAYDEN Hill [facility] [address] [place] [address] 10/20/2022 09:21:58 10/20/2022 10:07:40 Adult health examination 533527590 Z00.00 well exam completed. labs ordered Cholesterol screening 27 9787080 Z13.220 Diabetes m ellitus screening 934885357 Z13.1 Long-term drug therapy 523052323 Z79.899 Acute righ t otitis media 915257450 H66.91 rx for bactrim DS bid course since augmentin did not resolve infection after 10 day course from urgent care Body mass index 30+ - obesity 917183982 Z68.37 Health Concerns Section Related Observation LastModified by Organization Detai ls LastModified Time None Recorded Concern Status LastModified by Organization Details LastModified Time None Recorded Advance Directives Directive None Recorded Payers Encounter Date Sequence Insurance Name Policy Number Policy Simons Covered Member ID Simons Member ID Guarantor Name 10/20/[address] [facility] [employer] (PPO) [id number] James Hopkins [id number] Krishna Hopkins Notes Date Note Type Note Provider Name and Address Organization Details Recorded Time 11/03/19 21 text/htm l Anxiety/DepressionReported bypatient.Severity:denies suicidal ideations; able to maintain relationships; does not interfere with activities of daily living Context:no major life stressors Modifying Factors:medications as directed Associated Symptoms:denies homicidal ideations; no significant weight gain; no significant weight loss; no visual/auditory hallucinations; no delusions; no shortness of breath; mood good; no anxiety; no crying spells; no panic; no isolation; sleeping well; appetite good; energy good; no apathy; maintaining functionalityAsthma GuidelinesReported bypatient.Chief Complaint:examination: as a follow-up Onset/Timing:intermittent Severity:does not interfere with normal activitiesNotes:Does need a rf on her singulairInsomniaReported bypatient.Severity:same Duration:intermittent Context:using medications for sleep Modifying Factors:prescription medication Associated Symptoms:no anxiety; no snoring; no depression; no known sleep apnea; no pain; no dyspnea; no urinary frequency; legs do not feel restless Not Available [facility] Kids Note 11/20/2020 01:32:32 05/27/20 21 text/htm l Anxiety/DepressionReported bypatient.Severity:denies suicidal ideations; able to maintain relationships; does not interfere with activities of daily living Context:no major life stressors Associated Symptoms:denies homicidal ideations; no significant weight gain; no significant weight loss; no visual/auditory hallucinations; no delusions; no shortness of breath; mood good; no anxiety; no crying spells; no panic; no isolation; sleeping well; appetite good; energy good; no apathy; maintaining functionality Not Available [facility] [place] [facility] 06/22/2021 23:53:16 10/21/19 23 text/htm l Anxiety/DepressionReported bypatient.Quality:doesnt matter time of day Severity:denies suicidal ideations; able to maintain relationships; does not interfere with activities of daily living Duration:symptoms lasting over 2 weeks Onset/Timing:stable Context:no major life stressors Modifying Factors:rx Associated Symptoms:denies homicidal ideations; no significant weight gain; no significant weight loss; no visual/auditory hallucinations; no delusions; no shortness of breathNotes:stable with psychiatry managing. Wellness BRAYDEN Hill [address] [facility], [facility] [address], [place], [address], [facility] [employer] 10/20/2022 13:19:37 OBGyn Episode No OBEpisode recorded.
--- OUTSIDE RECORDS SUMMARY | 2024-11-05 14:12 | XMS_ITS | Patient Health Record ---
Author Organization [facility] Address [address] [facility] [address] [place] [address] Care Team Providers Care Security Operations Manager Name Role Phone Daniela Cullen Primary Care Provider Luis Sanders Unavailable [phone] Leanne Jeong Unavailable [phone] Letty Casas Unavailable [phone] Migration, Provider Unavailable Unavailable Allergies No Known Allergies Results Component Value Reference Range Notes UDT Reviewed date:08/28/2024 06:06:01 PM Interpretation: Performing Lab: Notes/Report: THC NEG 0 - 50 ng/ml Cocaine NEG 0 - 300 ng/ml Amphetamine NEG 0 - 1000 ng/ml Buprenorphine (BUP) NEG 0 - 10 ng/ml Secobarbital (Bar) NEG 0 - 300 ng/ml Oxazepam (BZO) NEG 0 - 300 ng/ml 5-gpuydtzoww-1,2-eberwakp-5,3-diphenylpyrrolidine (VAIBHAV P) NEG 0 - 300 ng/ml Methamphetamine (MET) NEG 0 - 1000 ng/ml Methylenedioxymethamphetamine (MDMA) NEG 0 - 500 ng/ml Morphine (MOP 300/[id number]) NEG 0 - 300 ng/ml Methadone (MTD) NEG 0 - 300 ng/ml Phencyclidine (PCP) NEG 0 - 25 ng/ml Nortriptyline (TCA) NEG 0 - 1000 ng/ml Oxycodone NEG 0 - 300 ng/ml x NEG 0 - 300 ng/ml Reason For Referral No Information Medications Medication SIG (Take, Route, Frequency, Duration) Notes Start Date End Date Status Sertraline HCl 100 MG 1 tablet Oral Once a day for 90 days take with 50mg tablet - total dose 150mg Active traZODone HCl 100 MG 1 tablet Oral Once a day for 90 days As needed Active Zolpidem Tartrate 5 MG 1 tablet at bedti me as needed Oral Once a day for 30 days 08/28/2024 Active Sertraline HCl 50 MG 1 tablet Orally Once a day for 90 days take with 100mg tablet- total dose 150mg Active ALPRAZolam 0.25 MG 1 tablet Oral once a day for 30 days As needed Active ProAir HFA 108 (90 Base) MCG/ACT Inhalation 08/28/2023 Active valACYclovir HCl 1 GM Oral 08/28/2023 Active Methylphenidate HCl ER 36 MG 1 tablet ev shavon morning Oral once a day for 30 days 10/28/2024 11/27/2024 Active Immunizations Vaccine Route Administration Date Status Comme nts Influenza virus vaccine, quadrivalent (IIV4), split virus, 0.25 mL dosage Unknown 04/29/2015 Administered Influenza virus vaccine, quadrivalent (IIV4), split virus, 0.25 mL dosage Unknown 03/29/2017 Administered Influenza, injectable, MDCK, preservative free Unknown 04/15/2019 Administered Influenza, quadrivalent, split virus Unknown 04/15/2019 Administered Source VFC Code: V00 - VFC eligibility not determined/unknown MMR Unknown 07/28/2014 Administered Moderna Covid-19 Vaccine 1st dose Unknown 06/30/2020 Administered Moderna Covid-19 Vaccine 1st dose Unknown 07/28/2020 Administered Novel [id number], preservative free Unknown 03/21/2020 Administered Social History Tobacco Use: Social History Observation Description Date Details (start date - stop date) Never Smoker NA - NA Sex Assigned At : Social History Observation Description Sex Assigned At Female Tobacco Control (Standard) Question Answer Notes Tobacco use: Nonsmoker AUDIT-C (Standard) Question Answer Notes Points 3 Did you have a drink contain ing alcohol in the past year? Yes How often did you have six o r more drinks on one occasion in the past year? Less than monthly (1 point) How many drinks did you have on a typical day when you were drinking in the past year? 3 or 4 drinks (1 point) How often did you have a dri nk containing alcohol in the past year? Monthly or less (1 point) Problems Problem Type SNOMED Code ICD Code Onset Dates Problem Status W/U Status Risk Notes Problem Mild recurrent major depression (13640874) Major depressive disorder, recurrent, mild (F33.0) Active confirmed Problem Generalized anxiety disorder (02677559) Generalized anxiety disorder (F41.1) Active confirmed Problem Primary insomnia (3182622) Primary insomnia (F51.01) Active confirmed Problem Attention deficit hyperactivity disorder, combined type (41834723) Attention-deficit hyperactivity disorder, combined type (F90.2) Active confirmed Problem Panic disorder (111373491) Panic disorder [episodic paroxysmal anxiety] without agoraphobia (F41.0) Active confirmed Vital Signs Heart Rate 92 /min 08/28/2024 Height-cm 161.29 cm 08/28/2024 Blood pressure diastolic 98 mm Hg 08/28/2024 Weight-kg 126.37 kg 08/28/2024 Height 63.50 in 08/28/2024 Blood pressure systolic 153 mm Hg 08/28/2024 Weight 278.6 lbs 08/28/2024 BMI 48.57 kg/m2 08/28/2024 Encounters Encounter Location Date Provider Diagnosis [id number] [address] 12/21/2023 Luis Talbertoza Generalized anxiety disorder F41.1 ; Attention-deficit hyperactivity disorder, combined type F90.2 ; Major depressive disorder, recurrent, mild F33.0 ; Panic disorder [episodic paroxysmal anxiety] without agoraphobia F41.0 and Primary insomnia F51.01 [id number] [address] [address] 04/22/2024 Luis Patel Generalized anxiety disorder F41.1 ; Attention-deficit hyperactivity disorder, combined type F90.2 ; Major depressive disorder, recurrent, mild F33.0 ; Panic disorder [episodic paroxysmal anxiety] without agoraphobia F41.0 and Primary insomnia F51.01 [facility] [address] [address] 05/28/2024 Luis Patel Generalized anxiety disorder F41.1 ; Attention-deficit hyperactivity disorder, combined type F90.2 ; Major depressive disorder, recurrent, mild F33.0 ; Panic disorder [episodic paroxysmal anxiety] without agoraphobia F41.0 and Primary insomnia F51.01 [facility] [address] [place] [address] 08/28/2024 Luis Patel Generalized anxiety disorder F41.1 ; Attention-deficit hyperactivity disorder, combined type F90.2 ; Major depressive disorder, recurrent, mild F33.0 ; Panic disorder [episodic paroxysmal anxiety] without agoraphobia F41.0 and Primary insomnia F51.01 [facility], [facility] [address] [place] [address] 11/11/2023 Provider Migration [facility], [facility] [address] [place] [address] 11/12/2023 Provider Migration [facility], [facility] [address] [place] [address] 11/30/2023 Luis Patel [facility], [facility] [address] [place] [address] 12/01/2023 Luis Patel [facility], [facility] [address] [place] [address] 12/04/2023 Luis Patel [facility], [facility] [address] [place] [address] 12/05/2023 Luis Patel Attention-deficit hyperactivity disorder, combined type F90.2 [facility], [facility] [address] [place] [address] 12/06/2023 Luis Talbertoza [facility], [facility] [address] [place] [address] 01/09/2024 Luis Patel [facility], [facility] [address] [place] [address] 01/10/2024 Luis Patel Attention-deficit hyperactivity disorder, combined type F90.2 [facility], [facility] [address] [place] [address] 01/11/2024 Luis Patel [facility], [facility] [address] [place] [address] 02/14/2024 uLis Talbertoza [facility], [facility] [address] [place] [address] 02/15/2024 Luis Patel Attention-deficit hyperactivity disorder, combined type F90.2 [facility], [facility] [address] [place] [address] 03/08/2024 Luis Patel Attention-deficit hyperactivity disorder, combined type F90.2 [facility], [facility] [address] [place] [address] 03/11/2024 Luis Patel Attention-deficit hyperactivity disorder, combined type F90.2 [facility] [address] [place] [address] 03/30/2024 Luis Patel Attention-deficit hyperactivity disorder, combined type F90.2 [facility], [facility] [address] [place] [address] 04/01/2024 Luis Patel Attention-deficit hyperactivity disorder, combined type F90.2 [facility], [facility] [address] [place] [address] 04/01/2024 Luis Patel [facility], [facility] [address] [place] [address] 05/13/2024 Luis Patel [facility], [facility] [address] [place] [address] 07/03/2024 Luis Patel Attention-deficit hyperactivity disorder, combined type F90.2 [facility] [address] [place] [address] 07/04/2024 Leanne Adenike Attention-deficit hyperactivity disorder, combined type F90.2 [facility] [address] [place] [address] 08/08/2024 Luis Patel Attention-deficit hyperactivity disorder, combined type F90.2 [facility] [address] [place] [address] 09/16/2024 Letty Casas Attention-deficit hyperactivity disorder, combined type F90.2 [facility], [facility] [address] [place] [address] 10/24/2024 Luis Patel [facility], [facility] [address] [place] [address] 10/28/2024 Luis Patel Attention-deficit hyperactivity disorder, combined type F90.2 Assessments Encounter Date Diagnosis (ICD Code) Assessment Notes Treatment Notes Treatment Clinical Notes Section Notes 12/05/2023 Attention-defici t hyperactivity disorder, combined type (ICD-10 - F90.2) 12/21/2023 Generalized anxiety disorder (ICD-10 - F41.1) 1. Anxiety Disorder - Patient reports increased anxiety in the last two weeks but has not taken alprazolam. - Continue sertraline 150 mg daily (two 50 mg tablets and one 100 mg tablet) for 90 days with a refill. - Discontinue alprazolam as per patient's request. 2. Insomnia - Patient reports good sleep with the current regimen. - Continue trazodone 100 mg at bedtime as needed for 90 days with a refill. - Continue zolpidem 5 mg at bedtime as needed for 30 days with three refills. 3. Attention Deficit Hyperactivity Disorder (ADHD) - Patient reports satisfactory results with Concerta 27 mg and experiences withdrawal symptoms when not taking it. - Continue Concerta 27 mg daily. Follow-up: - Schedule a follow-up appointment in four months to monitor the patient's progress and adjust medications as needed. 12/21/2023 Attention-defici t hyperactivity disorder, combined type (ICD-10 - F90.2) 1. Anxiety Disorder - Patient reports increased anxiety in the last two weeks but has not taken alprazolam. - Continue sertraline 150 mg daily (two 50 mg tablets and one 100 mg tablet) for 90 days with a refill. - Discontinue alprazolam as per patient's request. 2. Insomnia - Patient reports good sleep with the current regimen. - Continue trazodone 100 mg at bedtime as needed for 90 days with a refill. - Continue zolpidem 5 mg at bedtime as needed for 30 days with three refills. 3. Attention Deficit Hyperactivity Disorder (ADHD) - Patient reports satisfactory results with Concerta 27 mg and experiences withdrawal symptoms when not taking it. - Continue Concerta 27 mg daily. Follow-up: - Schedule a follow-up appointment in four months to monitor the patient's progress and adjust medications as needed. 01/10/2024 Attention-defici t hyperactivity disorder, combined type (ICD-10 - F90.2) 02/15/2024 Attention-defici t hyperactivity disorder, combined type (ICD-10 - F90.2) 03/08/2024 Attention-defici t hyperactivity disorder, combined type (ICD-10 - F90.2) 03/11/2024 Attention-defici t hyperactivity disorder, combined type (ICD-10 - F90.2) 03/30/2024 Attention-defici t hyperactivity disorder, combined type (ICD-10 - F90.2) 04/01/2024 Attention-defici t hyperactivity disorder, combined type (ICD-10 - F90.2) 04/22/2024 Generalized anxiety disorder (ICD-10 - F41.1) 1. ADHD: - Patient reports difficulty in obtaining Concerta 27 mg consistently from local pharmacies. - She has been experiencing increased stress and difficulty managing emotions due to a new job. Plan: - Increase Concerta dosage to 36 mg and advise the patient to check availability at the pharmacy. - If the issue persists, consider trying a different pharmacy or exploring alternative medication options. 2. Anxiety: - Patient has been using Xanax more frequently due to increased stress from her new job and difficulty managing emotions. - She reports no suicidal ideation or depression. Plan: - Refill Xanax prescription to help manage anxiety during this period of increased stress. - Encourage the patient to continue journaling and using available tools (e.g., voice notes, reminders) to help manage stress and anxiety. 3. Overall Mental Health and Coping Strategies: - Patient is experiencing high stress levels and difficulty managing emotions but is not depressed or suicidal. - She has been trying to give herself erick and has started journaling. Plan: - Encourage the patient to continue practicing self-compassion and utilizing coping strategies such as journaling, using available tools, and seeking support from her . - Monitor her mental health and stress levels during follow-up appointments. 05/28/2024 Generalized anxiety disorder (ICD-10 - F41.1) 1. ADHD: - Patient reports a slight improvement in focus and concentration since increasing Concerta to 36 mg daily. - The patient is adjusting to a new job, which may also contribute to the improvement. Plan: - Continue Concerta 36 mg daily. - Monitor patient's progress and adjust the dose if necessary during follow-up visits. 2. Anxiety: - Patient reports improvement in anxiety symptoms. - She has been taking Sertraline 150 mg daily and used Xanax only during the week of the election. Plan: - Continue Sertraline 150 mg daily. - Encourage the patient to use Xanax only as needed for acute anxiety episodes. - Reassess anxiety symptoms during follow-up visits. 3. Depression: - Patient reports improvement in depression symptoms. - She is now able to identify potential triggers for her mood changes and address them accordingly. Plan: - Continue monitoring depression symptoms during follow-up visits. - Encourage the patient to maintain a healthy lifestyle, including proper sleep, nutrition, and hydration. 4. Insomnia: - Patient reports improved sleep quality since taking Trazodone 100 mg as needed. Plan: - Continue Trazodone 100 mg as needed for insomnia. - Encourage the patient to practice good sleep hygiene and maintain a consistent sleep schedule. 5. Irritability/PMS: - Patient reports a decrease in irritability, especially around her period. - She is now able to take a moment before reacting impulsively. Plan: - Continue monitoring irritability and PMS symptoms during follow-up visits. - Encourage the patient to practice stress management techniques. - Consider discussing non-pharmacologic al interventions for PMS if needed. 6. Medication refills: - Patient needs a refill for methylphenidate (Concerta) 36 mg daily. Plan: - Refill Concerta 36 mg daily for three months, to be picked up at [facility]. - Monitor patient's medication adherence and effectiveness during follow-up visits. 07/03/2024 Attention-defici t hyperactivity disorder, combined type (ICD-10 - F90.2) 07/04/2024 Attention-defici t hyperactivity disorder, combined type (ICD-10 - F90.2) 08/08/2024 Attention-defici t hyperactivity disorder, combined type (ICD-10 - F90.2) 08/28/2024 Generalized anxiety disorder (ICD-10 - F41.1) 09/16/2024 Attention-defici t hyperactivity disorder, combined type (ICD-10 - F90.2) 10/28/2024 Attention-defici t hyperactivity disorder, combined type (ICD-10 - F90.2) 08/28/2024 Attention-defici t hyperactivity disorder, combined type (ICD-10 - F90.2) 05/28/2024 Attention-defici t hyperactivity disorder, combined type (ICD-10 - F90.2) 1. ADHD: - Patient reports a slight improvement in focus and concentration since increasing Concerta to 36 mg daily. - The patient is adjusting to a new job, which may also contribute to the improvement. Plan: - Continue Concerta 36 mg daily. - Monitor patient's progress and adjust the dose if necessary during follow-up visits. 2. Anxiety: - Patient reports improvement in anxiety symptoms. - She has been taking Sertraline 150 mg daily and used Xanax only during the week of the election. Plan: - Continue Sertraline 150 mg daily. - Encourage the patient to use Xanax only as needed for acute anxiety episodes. - Reassess anxiety symptoms during follow-up visits. 3. Depression: - Patient reports improvement in depression symptoms. - She is now able to identify potential triggers for her mood changes and address them accordingly. Plan: - Continue monitoring depression symptoms during follow-up visits. - Encourage the patient to maintain a healthy lifestyle, including proper sleep, nutrition, and hydration. 4. Insomnia: - Patient reports improved sleep quality since taking Trazodone 100 mg as needed. Plan: - Continue Trazodone 100 mg as needed for insomnia. - Encourage the patient to practice good sleep hygiene and maintain a consistent sleep schedule. 5. Irritability/PMS: - Patient reports a decrease in irritability, especially around her period. - She is now able to take a moment before reacting impulsively. Plan: - Continue monitoring irritability and PMS symptoms during follow-up visits. - Encourage the patient to practice stress management techniques. - Consider discussing non-pharmacologic al interventions for PMS if needed. 6. Medication refills: - Patient needs a refill for methylphenidate (Concerta) 36 mg daily. Plan: - Refill Concerta 36 mg daily for three months, to be picked up at [facility]. - Monitor patient's medication adherence and effectiveness during follow-up visits. 04/22/2024 Attention-defici t hyperactivity disorder, combined type (ICD-10 - F90.2) 1. ADHD: - Patient reports difficulty in obtaining Concerta 27 mg consistently from local pharmacies. - She has been experiencing increased stress and difficulty managing emotions due to a new job. Plan: - Increase Concerta dosage to 36 mg and advise the patient to check availability at the pharmacy. - If the issue persists, consider trying a different pharmacy or exploring alternative medication options. 2. Anxiety: - Patient has been using Xanax more frequently due to increased stress from her new job and difficulty managing emotions. - She reports no suicidal ideation or depression. Plan: - Refill Xanax prescription to help manage anxiety during this period of increased stress. - Encourage the patient to continue journaling and using available tools (e.g., voice notes, reminders) to help manage stress and anxiety. 3. Overall Mental Health and Coping Strategies: - Patient is experiencing high stress levels and difficulty managing emotions but is not depressed or suicidal. - She has been trying to give herself erick and has started journaling. Plan: - Encourage the patient to continue practicing self-compassion and utilizing coping strategies such as journaling, using available tools, and seeking support from her . - Monitor her mental health and stress levels during follow-up appointments. 12/21/2023 Major depressive disorder, recurrent, mild (ICD-10 - F33.0) 1. Anxiety Disorder - Patient reports increased anxiety in the last two weeks but has not taken alprazolam. - Continue sertraline 150 mg daily (two 50 mg tablets and one 100 mg tablet) for 90 days with a refill. - Discontinue alprazolam as per patient's request. 2. Insomnia - Patient reports good sleep with the current regimen. - Continue trazodone 100 mg at bedtime as needed for 90 days with a refill. - Continue zolpidem 5 mg at bedtime as needed for 30 days with three refills. 3. Attention Deficit Hyperactivity Disorder (ADHD) - Patient reports satisfactory results with Concerta 27 mg and experiences withdrawal symptoms when not taking it. - Continue Concerta 27 mg daily. Follow-up: - Schedule a follow-up appointment in four months to monitor the patient's progress and adjust medications as needed. 04/22/2024 Major depressive disorder, recurrent, mild (ICD-10 - F33.0) 1. ADHD: - Patient reports difficulty in obtaining Concerta 27 mg consistently from local pharmacies. - She has been experiencing increased stress and difficulty managing emotions due to a new job. Plan: - Increase Concerta dosage to 36 mg and advise the patient to check availability at the pharmacy. - If the issue persists, consider trying a different pharmacy or exploring alternative medication options. 2. Anxiety: - Patient has been using Xanax more frequently due to increased stress from her new job and difficulty managing emotions. - She reports no suicidal ideation or depression. Plan: - Refill Xanax prescription to help manage anxiety during this period of increased stress. - Encourage the patient to continue journaling and using available tools (e.g., voice notes, reminders) to help manage stress and anxiety. 3. Overall Mental Health and Coping Strategies: - Patient is experiencing high stress levels and difficulty managing emotions but is not depressed or suicidal. - She has been trying to give herself erick and has started journaling. Plan: - Encourage the patient to continue practicing self-compassion and utilizing coping strategies such as journaling, using available tools, and seeking support from her . - Monitor her mental health and stress levels during follow-up appointments. 12/21/2023 Panic disorder [episodic paroxysmal anxiety] without agoraphobia (ICD-10 - F41.0) 1. Anxiety Disorder - Patient reports increased anxiety in the last two weeks but has not taken alprazolam. - Continue sertraline 150 mg daily (two 50 mg tablets and one 100 mg tablet) for 90 days with a refill. - Discontinue alprazolam as per patient's request. 2. Insomnia - Patient reports good sleep with the current regimen. - Continue trazodone 100 mg at bedtime as needed for 90 days with a refill. - Continue zolpidem 5 mg at bedtime as needed for 30 days with three refills. 3. Attention Deficit Hyperactivity Disorder (ADHD) - Patient reports satisfactory results with Concerta 27 mg and experiences withdrawal symptoms when not taking it. - Continue Concerta 27 mg daily. Follow-up: - Schedule a follow-up appointment in four months to monitor the patient's progress and adjust medications as needed. 08/28/2024 Major depressive disorder, recurrent, mild (ICD-10 - F33.0) 05/28/2024 Major depressive disorder, recurrent, mild (ICD-10 - F33.0) 1. ADHD: - Patient reports a slight improvement in focus and concentration since increasing Concerta to 36 mg daily. - The patient is adjusting to a new job, which may also contribute to the improvement. Plan: - Continue Concerta 36 mg daily. - Monitor patient's progress and adjust the dose if necessary during follow-up visits. 2. Anxiety: - Patient reports improvement in anxiety symptoms. - She has been taking Sertraline 150 mg daily and used Xanax only during the week of the election. Plan: - Continue Sertraline 150 mg daily. - Encourage the patient to use Xanax only as needed for acute anxiety episodes. - Reassess anxiety symptoms during follow-up visits. 3. Depression: - Patient reports improvement in depression symptoms. - She is now able to identify potential triggers for her mood changes and address them accordingly. Plan: - Continue monitoring depression symptoms during follow-up visits. - Encourage the patient to maintain a healthy lifestyle, including proper sleep, nutrition, and hydration. 4. Insomnia: - Patient reports improved sleep quality since taking Trazodone 100 mg as needed. Plan: - Continue Trazodone 100 mg as needed for insomnia. - Encourage the patient to practice good sleep hygiene and maintain a consistent sleep schedule. 5. Irritability/PMS: - Patient reports a decrease in irritability, especially around her period. - She is now able to take a moment before reacting impulsively. Plan: - Continue monitoring irritability and PMS symptoms during follow-up visits. - Encourage the patient to practice stress management techniques. - Consider discussing non-pharmacologic al interventions for PMS if needed. 6. Medication refills: - Patient needs a refill for methylphenidate (Concerta) 36 mg daily. Plan: - Refill Concerta 36 mg daily for three months, to be picked up at [facility]. - Monitor patient's medication adherence and effectiveness during follow-up visits. 08/28/2024 Panic disorder [episodic paroxysmal anxiety] without agoraphobia (ICD-10 - F41.0) 12/21/2023 Primary insomnia (ICD-10 - F51.01) 1. Anxiety Disorder - Patient reports increased anxiety in the last two weeks but has not taken alprazolam. - Continue sertraline 150 mg daily (two 50 mg tablets and one 100 mg tablet) for 90 days with a refill. - Discontinue alprazolam as per patient's request. 2. Insomnia - Patient reports good sleep with the current regimen. - Continue trazodone 100 mg at bedtime as needed for 90 days with a refill. - Continue zolpidem 5 mg at bedtime as needed for 30 days with three refills. 3. Attention Deficit Hyperactivity Disorder (ADHD) - Patient reports satisfactory results with Concerta 27 mg and experiences withdrawal symptoms when not taking it. - Continue Concerta 27 mg daily. Follow-up: - Schedule a follow-up appointment in four months to monitor the patient's progress and adjust medications as needed. 04/22/2024 Panic disorder [episodic paroxysmal anxiety] without agoraphobia (ICD-10 - F41.0) 1. ADHD: - Patient reports difficulty in obtaining Concerta 27 mg consistently from local pharmacies. - She has been experiencing increased stress and difficulty managing emotions due to a new job. Plan: - Increase Concerta dosage to 36 mg and advise the patient to check availability at the pharmacy. - If the issue persists, consider trying a different pharmacy or exploring alternative medication options. 2. Anxiety: - Patient has been using Xanax more frequently due to increased stress from her new job and difficulty managing emotions. - She reports no suicidal ideation or depression. Plan: - Refill Xanax prescription to help manage anxiety during this period of increased stress. - Encourage the patient to continue journaling and using available tools (e.g., voice notes, reminders) to help manage stress and anxiety. 3. Overall Mental Health and Coping Strategies: - Patient is experiencing high stress levels and difficulty managing emotions but is not depressed or suicidal. - She has been trying to give herself erick and has started journaling. Plan: - Encourage the patient to continue practicing self-compassion and utilizing coping strategies such as journaling, using available tools, and seeking support from her . - Monitor her mental health and stress levels during follow-up appointments. 05/28/2024 Panic disorder [episodic paroxysmal anxiety] without agoraphobia (ICD-10 - F41.0) 1. ADHD: - Patient reports a slight improvement in focus and concentration since increasing Concerta to 36 mg daily. - The patient is adjusting to a new job, which may also contribute to the improvement. Plan: - Continue Concerta 36 mg daily. - Monitor patient's progress and adjust the dose if necessary during follow-up visits. 2. Anxiety: - Patient reports improvement in anxiety symptoms. - She has been taking Sertraline 150 mg daily and used Xanax only during the week of the election. Plan: - Continue Sertraline 150 mg daily. - Encourage the patient to use Xanax only as needed for acute anxiety episodes. - Reassess anxiety symptoms during follow-up visits. 3. Depression: - Patient reports improvement in depression symptoms. - She is now able to identify potential triggers for her mood changes and address them accordingly. Plan: - Continue monitoring depression symptoms during follow-up visits. - Encourage the patient to maintain a healthy lifestyle, including proper sleep, nutrition, and hydration. 4. Insomnia: - Patient reports improved sleep quality since taking Trazodone 100 mg as needed. Plan: - Continue Trazodone 100 mg as needed for insomnia. - Encourage the patient to practice good sleep hygiene and maintain a consistent sleep schedule. 5. Irritability/PMS: - Patient reports a decrease in irritability, especially around her period. - She is now able to take a moment before reacting impulsively. Plan: - Continue monitoring irritability and PMS symptoms during follow-up visits. - Encourage the patient to practice stress management techniques. - Consider discussing non-pharmacologic al interventions for PMS if needed. 6. Medication refills: - Patient needs a refill for methylphenidate (Concerta) 36 mg daily. Plan: - Refill Concerta 36 mg daily for three months, to be picked up at [facility]. - Monitor patient's medication adherence and effectiveness during follow-up visits. 05/28/2024 Primary insomnia (ICD-10 - F51.01) 1. ADHD: - Patient reports a slight improvement in focus and concentration since increasing Concerta to 36 mg daily. - The patient is adjusting to a new job, which may also contribute to the improvement. Plan: - Continue Concerta 36 mg daily. - Monitor patient's progress and adjust the dose if necessary during follow-up visits. 2. Anxiety: - Patient reports improvement in anxiety symptoms. - She has been taking Sertraline 150 mg daily and used Xanax only during the week of the election. Plan: - Continue Sertraline 150 mg daily. - Encourage the patient to use Xanax only as needed for acute anxiety episodes. - Reassess anxiety symptoms during follow-up visits. 3. Depression: - Patient reports improvement in depression symptoms. - She is now able to identify potential triggers for her mood changes and address them accordingly. Plan: - Continue monitoring depression symptoms during follow-up visits. - Encourage the patient to maintain a healthy lifestyle, including proper sleep, nutrition, and hydration. 4. Insomnia: - Patient reports improved sleep quality since taking Trazodone 100 mg as needed. Plan: - Continue Trazodone 100 mg as needed for insomnia. - Encourage the patient to practice good sleep hygiene and maintain a consistent sleep schedule. 5. Irritability/PMS: - Patient reports a decrease in irritability, especially around her period. - She is now able to take a moment before reacting impulsively. Plan: - Continue monitoring irritability and PMS symptoms during follow-up visits. - Encourage the patient to practice stress management techniques. - Consider discussing non-pharmacologic al interventions for PMS if needed. 6. Medication refills: - Patient needs a refill for methylphenidate (Concerta) 36 mg daily. Plan: - Refill Concerta 36 mg daily for three months, to be picked up at [facility]. - Monitor patient's medication adherence and effectiveness during follow-up visits. 04/22/2024 Primary insomnia (ICD-10 - F51.01) 1. ADHD: - Patient reports difficulty in obtaining Concerta 27 mg consistently from local pharmacies. - She has been experiencing increased stress and difficulty managing emotions due to a new job. Plan: - Increase Concerta dosage to 36 mg and advise the patient to check availability at the pharmacy. - If the issue persists, consider trying a different pharmacy or exploring alternative medication options. 2. Anxiety: - Patient has been using Xanax more frequently due to increased stress from her new job and difficulty managing emotions. - She reports no suicidal ideation or depression. Plan: - Refill Xanax prescription to help manage anxiety during this period of increased stress. - Encourage the patient to continue journaling and using available tools (e.g., voice notes, reminders) to help manage stress and anxiety. 3. Overall Mental Health and Coping Strategies: - Patient is experiencing high stress levels and difficulty managing emotions but is not depressed or suicidal. - She has been trying to give herself erick and has started journaling. Plan: - Encourage the patient to continue practicing self-compassion and utilizing coping strategies such as journaling, using available tools, and seeking support from her . - Monitor her mental health and stress levels during follow-up appointments. 08/28/2024 Primary insomnia (ICD-10 - F51.01) 08/28/2024 Other 1. Major Depressive Disorder: - Continue sertraline 150 mg daily - Continue trazodone at bedtime as needed for sleep Plan: - Monitor mood and depressive symptoms during follow-up visits 2. Generalized Anxiety Disorder: - Continue Xanax as needed for anxiety - Encourage patient to utilize coping strategies and relaxation techniques Plan: - Monitor anxiety levels during follow-up visits 3. Insomnia: - Continue zolpidem as needed for sleep - Encourage good sleep hygiene practices Plan: - Reassess sleep quality during follow-up visits 4. Attention Deficit Hyperactivity Disorder: - Continue Concerta as prescribed Plan: - Monitor effectiveness and side effects during follow-up visits 5. Marital issues: - Encourage continuation of couples counseling - Suggest individual therapy for both patient and spouse to address personal issues and communication skills Plan: - Reevaluate marital situation during follow-up visits 6. Social support: - Encourage patient to maintain connections with friends and engage in activities that bring floresita and fulfillment - Discuss the importance of self-care and setting boundaries in relationships Follow-up: - Schedule a follow-up appointment in 4 weeks to monitor mood, anxiety, sleep, and ADHD symptoms, as well as progress in couples counseling and individual therapy. Plan Of Treatment Next Appt Details Provider Name:Luis pitt, 11/20/2024 04:45:00 PM, [address], [address], [place], [address], Insurance Providers Payer Name Payer Address Payer Phone Subscriber Number Group Number Insured Name Patient Relationship to Insured Coverage Start Date Coverage End Date [employer] Management [address] [place] [phone] [id number] BRIAN ÁLVAREZ Spouse - patient is the spouse of the insured Medical (General) History Medical History History ICD Code Problems: Attention deficit hyperactivit y disorder, combined type Generalized anxiety disorder Influenza vaccination given Mild recurrent major depression Panic disorder without agoraphobia Primary insomnia Severe recurrent major depression Severe recurrent major depression withou t psychotic features , Surgical History Surgery Date(Month/Year) Any surgical history 09/05/2019 Ligation of bilateral fallopian tubes ([id number]) 09/05/2019 Endometrial ablation (32038) 2022
--- OUTSIDE RECORDS SUMMARY | 2024-11-05 14:12 | XMS_ITS | Data Portability ---
Author Organization [facility] SALLYRohit Address [address] [facility] [place] [address] Assessment No assessment recorded. Plan of Treatment Reminders Order Date Submit Date Provider Last Modified By Organization Details Last Modified Time Details Appointments None recorded. Lab TSH + free T4, serum 2023 [facility], [address], [address], 4 09:34:36 lipid panel, serum 2023 [facility], [address], [address], 4 09:34:36 CBC w/ auto diff 2023 [facility], [address], [address], 4 09:34:37 CMP, serum or plasma 2023 [facility], [address], [address], 4 09:34:36 vitamin B12 + folate, serum or blood 2023 024 [facility], [address], [address], 4 09:34:37 HbA1c (hemoglobin A1c), blood 2023 [facility], [address] [facility] [address], [place], [address], 09:34:37 Referral None recorded. Procedures None recorded. Surgeries None recorded. Imaging None recorded. Medication Orders Zepbound 2.5 mg/0.5 mL subcutaneou s pen injector 2023 [id number], [address] [facility], [place], [place], [id number], 18:08:07 Patient TargetsNo targets recorded. Patient Instructions Encounter Date Encounter Id Patient Instructions Last Modified By Organization Details Last Modified Time 09/26/2023 [id number] A healthy lifestyle: care instructions [email or web address] Not available 10/08/2023 11:01:18 Reason for Referral None Reported. Results Created Date Observation Date Name Description Value Unit Range Abnormal Flag Note LastModifiedBy Organization Detail LastModifiedTime 02/19/20 24 02/19/2024 MAMMO , scree elicia, digit al, bilat eral No observ ation record ed. [email or web address] [facility] [address], [place], [address], 02/19/2024 18:28:23 Result Notes None recorded. Problems Name Problem SNOMED Code Status Onset Date Resolution Date Notes Provider Name and Address Organization Details Recorded Time Mixed anxiety and depressive disorder 851964749 Active 2023 B[facility] Hill Attn: Mounika reinoso,[address] [place], [address], [facility] - [facility] 4 11:01:52 Attention deficit hyperactivity disorder 246262829 Active 2023 BRAY[facility] Hill Attn: Mounika reinoso,[address] [place], [address], [place] - [facility] 4 11:01:53 Long-term drug therapy Active 2023 BRAYDEN Hill Attn: Mounika reinoso,[address], [place], [address], [facility] - [facility] 4 11:01:56 Body mass index 40+ - severely obese 851406628 Active 2023 BRAYDEN Hill Attn: Mounika reinoso,[address] [facility], [place], [address], [facility] - [facility] 4 11:01:57 Morbid obesity 180718804 Active 2023 BRAYDEN Hill Attn: Mounika reinoso,[address] [facility], [place], [address], [facility] - [facility] 4 11:01:58 Problem Notes None recorded. Procedures Surgical History Date Name Laterality Status Provider Name and Address Organization Details Recorded Time LEEP completed Titus Hurt MA [facility] 09/26/2023 17:29:18 ligation of bilateral fallopian tubes completed Titus Hurt MA [facility] 09/26/2023 17:29:27 D & c after delivery completed Titus Hurt MA [facility] 09/26/2023 17:29:44 Imaging Results Imaging Date Name Status LastModified by Organiz ation Details LastModified Time 02/19/2024 MAMMO, screening, digital, bilateral completed [email or web address] [facility] [address], [place], [address], 02/19/2024 18:28:23 Procedure Notes None recorded. Medical Equipment None Reported. Allergies No known drug allergies Medications Name Sig Start Date Stop Date Status Note LastModified by Organization Details LastModified Time cyclobenzap rine 10 mg tablet TAKE 1 TABLET BY MOUTH THREE TIMES DAILY NEEDED FOR LOW BACK PAIN active Not Available Not Available No t Available azithromyci n 250 mg tablet 09/25 completed Not Available Not Available Not Available fluconazole 150 mg tablet TAKE 1 TABLET BY MOUTH EVERY DAY 09/25 completed Not Available Not Available Not Available valacyclovi r 1 gram tablet TAKE 2 TABLETS BY MOUTH EVERY 12 HOURS FOR 1 DAY NEEDED FOR COLD SORE OR FLARE UP active Not Available Not Available No t Available prednisone 20 mg tablet TAKE 2 TABLETS BY MOUTH DAILY FOR 5 DAYS 09/25 completed Not Available Not Available Not Available sertraline 100 mg tablet TAKE 1 TABLET BY MOUTH EVERY DAY WITH 50 MG TABLET - TOTAL DOSE OF 150MG DAILY active Not Available Not Available No t Available sulfamethox azole 800 mg-trimetho prim 160 mg tablet TAKE 1 TABLET BY MOUTH EVERY 12 HOURS 09/25 completed Not Available Not Available Not Available trazodone 100 mg tablet TAKE 1 TABLET BY MOUTH AT BEDTIME NEEDED active Not Available Not Available No t Available montelukast 10 mg tablet TAKE 1 TABLET BY MOUTH DAILY 2023 active Not Available Not Available Not Avai lable zolpidem 5 mg tablet TAKE 1 TABLET BY MOUTH DAILY AT BEDTIME NEEDED active Not Available Not Available No t Available clobetasol 0.05 % topical ointment APPLY TOPICALLY TO THE AFFECTED AREA DAILY FOR 2 WEEKS. CONTINUE USING AT LEAST 1-4 TIMES PER WEEK THEREAFTE R active Not Available Not Available No t Available methylpredn isolone 4 mg tablets in a dose pack FOLLOW PACKAGE DIRECTION S 09/25 completed Not Available Not Available Not Available methylpheni date ER 18 mg tablet,exte nded release 24 hr 09/25 completed Not Available Not Available Not Available sertraline 50 mg tablet TAKE 1 TABLET BY MOUTH EVERY DAY WITH 100MG TABLET. TOTAL DOSE OF 150MG DAILY active Not Available Not Available No t Available naproxen 500 mg tablet TAKE 1 TABLET BY MOUTH TWICE DAILY WITH A MEAL active Not Available Not Available No t Available amoxicillin 875 mg-potassiu m clavulanate 125 mg tablet TAKE 1 TABLET BY MOUTH EVERY 12 HOURS FOR 10 DAYS 09/25 completed Not Available Not Available Not Available methylpheni date ER 27 mg tablet,exte nded release 24 hr TAKE 1 TABLET BY MOUTH EVERY MORNING active Not Available Not Available No t Available dexmethylph enidate ER 10 mg capsule,ext ended release [id number] TAKE 1 CAPSULE BY MOUTH EVERY DAY IN THE MORNING 09/25 completed Not Available Not Available Not Available Zepbound 2.5 mg/0.5 mL subcutaneou s pen injector Inject 2.5 mg every week by subcutane ous route. 2023 active Not Available Not Available Not Avai lable Vitals Date Recorded Body height Body mass index (BMI) Body weight Oxygen saturation Oxygen saturation in Arterial blood by Pulse oximetry Heart rate Respiratory rate Systolic blood pressure Diastolic blood pressure Provider Name and Address Organization Details Last Updated DateTime 161.29 cm 46.4 kg/m2 930245. 57 g 100 % 100 % 69 /min 18 /min 132 mm[Hg] 82 mm[Hg] Titus Hurt MA [place] - [facility] 16:48:14 Social History Question Answer Notes LastModified by Organizat ion Details LastModified Time Tobacco Smoking Status Never Smoker Titus Hurt MA null, [facility] 09/26/2023 16:44:03 Are You Blind Or Do You Have Difficulty Seeing? No Glasses Information n ot available 09/26/2023 What Is Your Level Of Caffeine Consumption? Heavy Information not available 09/26/2023 In The 14 Days Before Symptom Onset, Have You Had Close Contact With A Laboratory-confirm ed COVID-19 While That Case Was Ill? No Information n ot available 09/26/2023 In The 14 Days Before Symptom Onset, Have You Had Close Contact With A Person Who Is Under Investigation For COVID-19 While That Person Was Ill? No Information not available 09/26/2023 Have You Been To An Area Known To Be High Risk For COVID-19? No Information not available 09/26/2023 Are You Deaf Or Do You Have Serious Difficulty Hearing? No Information not available 09/26/2023 What Type Of Diet Are You Following? REGULAR Information n ot available 09/26/2023 Are There Any Guns Present In Your Home? No Information not available 09/26/2023 What Was The Date Of Your Most Recent Tobacco Screening? 09/26/2023 Information not available 09/26/2023 Do You Use Your Seat Belt Or Car Seat Routinely? Yes Information not available 09/26/2023 Do You Have Smoke And Carbon Monoxide Detectors In Your Home? Yes Information not available 09/26/2023 Do You Use Sunscreen Routinely? Yes Information not available 09/26/2023 Has Tobacco Cessation Counseling Been Provided? No Information not available 09/26/2023 Sex: Female Functional Status Question Answer Note LastModified by Organizat ion Details LastModified Time Do you use any illicit or recreational drugs? No Information not available 09/26/2023 Do you or have you ever used any other forms of tobacco or nicotine? No Information not available 09/26/2023 What is your level of alcohol consumption? Occasional Information not available 09/26/2023 Are you able to care for yourself? Yes Information n ot available 09/26/2023 What is your exercise level? None Information not available 09/26/2023 Mental Status Question Answer Note LastModified by Organization D etails LastModified Time Do you feel stressed (tense, restless, nervous, or anxious, or unable to sleep at night)? [id number] Information not available 09/26/2023 Family History Relationship Description Onset Age of this Age Resolved Age Notes LastModified by Organization Details LastModified Time Mother Asthma [email or web address] Not available 09/26/2023 17:30:01 Mother Depressive disorder tcarterma Not available 2023 17:30:08 Mother Disorder of thyroid gland tcarterma Not available 2023 17:30:13 Mother Hypertensive disorder tcarterma Not available 2023 17:30:20 Mother Osteoporosis tcarterma Not avai lable 09/26/2023 17:30:33 Sister Asthma tcarterma Not available 09/26/2023 17:30:01 Sister Depressive disorder tcarterma Not available 2023 17:30:08 Father Malignant neoplasm of prostate tcarterma Not available 2023 17:30:43 Medical History Condition Response Coronary Artery Disease N Other N High Blood Pressure N Atrial Fibrillation N Thyroid Problems N Kidney or Bladder Problems N GI Problems N Depression Y COPD N Blood Clots N Skin Problems N Anemia N Heart Attack (GA) N Anxiety Disorder Y Diabetes N Muscle, Joint, or Bone Problems N Seizures/Epilepsy N Acid Reflux (GERD) N Cancer N Stroke N Asthma Y Allergies Y High Cholesterol N Hepatitis N Liver Disease N Headaches N Osteoporosis N Heart Failure N Gynecological History Statement/Question Response Flow Moderate Date of LMP 09/18/2023 Menses Monthly Y Duration of Flow (days) 3 Current Control Method LMP Definite Obstetrics History GPAL:G 2 P 1 0 0 1 Type Value Multiple Births 0 Full Term 1 Induced 0 Spontaneous 0 Premature 0 Living 1 Total 2 Past Encounters Encounter ID Performer Location Encounter Start Date Encounter Closed Date Diagnosis/Indication Diagnosis SNOMED-CT Code Diagnosis ICD10 Code Diagnosis Note [id number] Bob Bower MD [facility] [place] [facility] [address] [place] [address] 09/26/2023 16:28:14 09/26/2023 17:08:56 Cholesterol screening 331935998 Z13.220 fasting lipids are due Diabetes m ellitus screening 462155209 Z13.1 annual a1c screening due Thyroid di sorder screening 907948226 Z13.29 thyroid panel is due Mixed anxi ety and depressive disorder 331337610 F41.8 patient is doing excellent on sertraline 150mg daily therapy, managed from psychiatri . Attention deficit hyperactivity disorder 750193876 F90.9 new dx with psychiatrivelisse porras and excellent life changing results on methylphen idate ER 27mg daily. Adult heal th examination 580244896 Z00.01 annual wellness exam completed. pt re-establi sh from last PCP office. Long-term drug therapy 715554287 Z79.899 routine cbc, cmp and b12, folate labs due for annual review Body mass index 40+ - severely obese 618647057 Z68.42 start zepbound injectable therapy. no personal or family hx of Medullary thyroid cancer or MEN conditions . Morbid obesity 261018566 E66.01 discussed healthy diet, exercise, controllin g carbohydra darline and added sugars in the diet Health Concerns Section Related Observation LastModified by Organization Detai ls LastModified Time None Recorded Concern Status LastModified by Organization Details LastModified Time None Recorded Advance Directives Directive None Recorded Payers Encounter Date Sequence Insurance Name Policy Number Policy Simons Covered Member ID Simons Member ID Guarantor Name 09/26/2023 1 [facility] [employer] (PPO) James Hopkins [id number] Judie Hopkins Notes Date Note Type Note Provider Name and Address Organization Details Recorded Time 4 text/html Anxiety/DepressionReporte d bypatient.Quality:symptom s improved Severity:denies suicidal ideations; able to maintain relationships; does not interfere with activities of daily living Duration:stablizing Context:no major life stressors Modifying Factors:counselling; medications as directed; psychiatrist Associated Symptoms:denies homicidal ideations; no significant weight gain; no significant weight loss; no visual/auditory hallucinations; no delusions; no shortness of breath; mood good; no crying spells; no panic; no isolation; sleeping well; appetite good; energy good; no apathy; maintaining functionality;anxiety;dep ression; ADHDInsomniaReported bypatient.Quality:symptom s worse in the evening Severity:improving Duration:frequent Context:using medications for sleep Modifying Factors:prescription medication Associated Symptoms:anxiety;depressi onNotes:stable on medication: trazodone qhs and also zolpidem PRNObesityReported bypatient.Context:no oral steroids Associated Symptoms:depression or anger symptoms(depression/anxie ty managed on medications.) Co-morbidities:ADHD Lifestyle changes:no changes in living situation; motivated to continue lifestyle changes; exercising more Nutrition:eats mostly healthy diet; counting and restricting calories; restricting concentrated sugars Physical Activity:reported frequency of moderate level of physical activity per week: 2-4 days Medication Education:understands potential side effects; understands role of diet as primary therapy ADHD new dx with psychiatrist. on generic concerta and has been life changing for her mental health stability. BRAYDEN Hill Attn: Accounting,[address] [place], [address], [place] [facility] 10/08/2023 11:04:02 OBGyn Episode No OBEpisode recorded.
--- OUTSIDE RECORDS SUMMARY | 2024-11-05 14:12 | XMS_ITS | Clinical Summary ---
Author Organization 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 Gender Identity Not on file Sexual Orientation Not on file Plan of Treatment Health Maintenance Due Date Last Done Comments Cervical Cancer Screening Pa p Smear (Age 30 to 64) Every 3 Years 1983 Annual Physical 1986 Hepatitis C 2001 DTaP, Tdap and Td Vaccines ( 1 - Tdap) 2002 Hepatitis B Vaccines (1 of 3 - 19+ 3-dose series) 2002 Cervical Cancer Screening Pa p with HPV Testing (Age 30 to 64) Every 5 Years 2013 Cervical Cancer Screening wi th HPV 2013 Mammogram Screening 2023 COVID-19 Vaccine (3 - 2023-2 5 season) 2024 07/28/2020, 06/30/2020 HPV Vaccines Aged Out No longer eligi ble based on patient's age to complete this topic Meningococcal B Vaccine Aged Out No l onger eligible based on patient's age to complete this topic Meningococcal Vaccine Aged Out No brenna vin eligible based on patient's age to complete this topic Pneumococcal Vaccine: Pediatrics (0 to 5 Years) and At-Risk Patients (6 to 49 Years) Aged Out No longer eligible b ased on patient's age to complete this topic RSV Immunizations Under 20 Months Aged Out No longer eligible b ased on patient's age to complete this topic
[2024-11-05 14:23] VITALS: BP 134/84; PULSE 88; RESP 20; TEMP 36.2; O2SAT 100
--- NOTE | 2024-11-05 14:42 | ED.BACK ---
HPI - Back Pain/Injury General Chief Complaint: Back Pain/Injury <Vickie Burciaga PA-C - Last Filed: 11/05/24 14:44> Stated Complaint: back pain <Vickie Burciaga PA-C - Last Filed: 11/05/24 14:44> Time Seen by Provider: 11/05/24 17:00 <Vickie Burciaga PA-C - Last Filed: 11/05/24 14:44> Focused HPI: 39-year-old female presents to the emergency department for low back pain for the past day. Patient states yesterday she sat on the toilet to go to the bathroom, twisted wrong and felt a pain in her back and side pain since. The pain is worse with movement better at rest. She states it is in her low back. She denies saddle anesthesia, bowel or bladder incontinence, fever, surgeries or procedures to her back, dysuria or hematuria, fever, radicular symptoms, abdominal pain. States she had a similar episode back in January of 2024 and was prescribed muscle relaxers and naproxen by her PCP and saw a chiropractor. Eventually she had improvement. She had leftover Flexeril and naproxen which she took this morning with some improvement. GENERAL: Well-appearing, well-nourished, and in no acute distress. HEAD: Normocephalic, atraumatic. CHEST: Clear to auscultation. ?No respiratory distress. BACK: Tenderness to the lumbar spine and paraspinous muscles with no overlying skin changes, crepitus, step-offs or deformities. BLE strength 5/5. Sensation intact throughout. No saddle anesthesia. HEART: Regular rate and rhythm.? NEURO: ?Alert and oriented x3. Patient screened in triage and initial orders placed.? ?Additional care and disposition to be based upon?diagnostic testing and treatment. <Vickie Burciaga PA-C - Last Filed: 11/05/24 14:44> Focused HPI: 39-year-old female presents to the emergency department for low back pain for the past day. Patient states yesterday she sat on the toilet to go to the bathroom, twisted wrong and felt a pain in her back and side pain since. The pain is worse with movement better at rest. She states it is in her low back. She denies saddle anesthesia, bowel or bladder incontinence, fever, surgeries or procedures to her back, dysuria or hematuria, fever, radicular symptoms, abdominal pain. States she had a similar episode back in January of 2024 and was prescribed muscle relaxers and naproxen by her PCP and saw a chiropractor. Eventually she had improvement. She had leftover Flexeril and naproxen which she took this morning with some improvement. GENERAL: Well-appearing, well-nourished, and in no acute distress. HEAD: Normocephalic, atraumatic. CHEST: Clear to auscultation. ?No respiratory distress. BACK: Tenderness to the lumbar spine and paraspinous muscles with no overlying skin changes, crepitus, step-offs or deformities. BLE strength 5/5. Sensation intact throughout. No saddle anesthesia. HEART: Regular rate and rhythm.? NEURO: ?Alert and oriented x3. Patient screened in triage and initial orders placed.? ?Additional care and disposition to be based upon?diagnostic testing and treatment. <Flora Kitchen PA-C - Last Filed: 11/05/24 19:58> Source: patient <Flora Kitchen PA-C - Last Filed: 11/05/24 19:58> Mode of arrival: ambulatory <CARLOS Quintana Last Filed: 11/05/24 19:58> Limitations: no limitations <CARLOS Quintana Last Filed: 11/05/24 19:58> History of Present Illness HPI Narrative: Agree with above HPI. Denies radiation of pain down her legs. Denies weakness. <CARLOS Quintana Last Filed: 11/05/24 19:58> Related Data Home Medications: Home Medications ?Medication ?Instructions ?Recorded ?Confirmed ?Last Taken ?Type alprazolam 0.25 mg tablet 0.25 mg PO PRN PRN Insomnia 01/12/22 01/22/24 Unknown History sertraline 100 mg tablet 100 mg PO HS 01/12/22 01/22/24 Unknown History sertraline 50 mg tablet 50 mg PO HS 01/12/22 01/22/24 Unknown History trazodone 100 mg tablet 100 mg PO QHS 01/12/22 01/22/24 Unknown History zolpidem 10 mg tablet 5 mg PO QHS 01/12/22 01/22/24 Unknown History albuterol sulfate 90 mcg/actuation 1 inh inhalation PRN PRN Shortness 03/07/22 01/22/24 Unknown History breath activated powder inhaler Of Breath methylphenidate HCl 27 mg mg PO 01/22/24 01/22/24 Unknown History tablet,extended release 24 hr montelukast 10 mg tablet mg PO 01/22/24 01/22/24 Unknown History valacyclovir 1 gram tablet mg PO 01/22/24 01/22/24 Unknown History <Vickie Burciaga PA-C - Last Filed: 11/05/24 14:44> Allergies/Adverse Reactions: Allergies Allergy/AdvReac Type Severity Reaction Status Date / Time No Known Allergies Allergy Verified 11/05/24 17:26 <Vickie Burciaga PA-C - Last Filed: 11/05/24 14:44> Review of Systems Review of Systems: All systems reviewed & are unremarkable except as noted in HPI. <Flora Kitchen PA-C - Last Filed: 11/05/24 19:58> All systems reviewed & are unremarkable except as noted in HPI and below <Flora Kitchen PA-C - Last Filed: 11/05/24 19:58> [facility] Past Medical History Medical History: Medical History ADHD Asthma Depression Anxiety disorder <Vickie Burciaga PA-C - Last Filed: 11/05/24 14:44> Surgical History Surgical History: Surgical History History of hysteroscopy (06/23/22) hscope D&C / Ablation History of excision of mass excision lipoma on upper back Hx LEEP (loop electrosurgical excision procedure), cervix, 2011 H/O bilateral salpingectomy <Vickie Burciaga PA-C - Last Filed: 11/05/24 14:44> Family History Family History: Family History Mother Family history of thyroid disease Family history of obesity Skin cancer Sibling Family history of obesity Depression Father Family history of alcoholism Malignant neoplasm of prostate <Vickie Burciaga PA-C - Last Filed: 11/05/24 14:44> Social History Social History: Social History Smoking status: Never smoker Alcohol intake: current Alcohol use details: occasionally,once a month Substance use: never Substance use type: does not use Lack of Transportation: No Lack of Food: Never True Current Housing: I Have Housing Concerned About Future Housing: No Difficulty Paying Gas/Electric Bills: No Difficulty Paying for Meds: No Currently Unemployed: No Education: Bachelor's Degree Difficulty w/ Childcare or Family Care: No Living arrangements: with family Additional living arrangements comments: Occupation/Education: unemployed Gender identity (if verbalized by the patient): Female Sexual Orientation (if Verbalized by the Patient): Straight or Heterosexual Spiritual care concerns: No <Vcikie Burciaga PA-C - Last Filed: 11/05/24 14:44> Exam Narrative: GENERAL: Mildly uncomfortable appearing, well-nourished, non-toxic, in no acute distress. HEAD: Normocephalic, atraumatic. RESPIRATORY: Airway patent, respirations nonlabored. Clear to auscultation bilaterally, no rales, rhonchi, wheezing. CARDIOVASCULAR: Regular rate and rhythm without murmurs, rubs, or gallops. MUSCULOSKELETAL: Moves all extremities. No gross deformities. No significant midline lumbar spinal tenderness. Bilateral paraspinal muscle tenderness, worse on left. Sensation intact. SKIN: Warm, dry, normal color. NEURO: A&O X3. Speech clear. Cranial nerves II-XII grossly intact. Steady gait. No ataxic movements. PSYCHIATRIC: Appropriate mood and affect. Normal interaction. <Flora Kitchen PA-C - Last Filed: 11/05/24 19:58> Course Vital Signs Vital signs: Vital Signs Temperature 97.2 F L 11/05/24 14:23 Pulse Rate 88 11/05/24 14:23 Respiratory Rate 20 11/05/24 14:23 Blood Pressure 134/84 11/05/24 14:23 Pulse Oximetry 100 11/05/24 14:23 Temperature 97.5 F L 11/05/24 17:23 Pulse Rate 77 11/05/24 17:23 Respiratory Rate 16 11/05/24 17:23 Blood Pressure 147/94 H 11/05/24 17:23 Pulse Oximetry 98 11/05/24 17:23 <Vickie Burciaga PA-C - Last Filed: 11/05/24 14:44> Vital Signs Temperature 97.2 F L 11/05/24 14:23 Pulse Rate 88 11/05/24 14:23 Respiratory Rate 20 11/05/24 14:23 Blood Pressure 134/84 11/05/24 14:23 Pulse Oximetry 100 11/05/24 14:23 Temperature 97.5 F L 11/05/24 17:23 Pulse Rate 77 11/05/24 17:23 Respiratory Rate 16 11/05/24 17:23 Blood Pressure 147/94 H 11/05/24 17:23 Pulse Oximetry 98 11/05/24 17:23 <Flora Kitchen PA-C - Last Filed: 11/05/24 19:58> MDM - Back Pain/Injury MDM Narrative Medical decision making narrative: Patient presented to ED with lumbar back pain, history of similar back pain since last January. Re-injured yesterday while using the restroom. Vital signs are stable upon arrival. Patient was evaluated in triage and given Valium, Decadron, Toradol, lidocaine patch prior to my evaluation. At the time of my evaluation, patient is feeling improved, but still having some spasm type pains. Given additional [place]. Patient's pain is positional and localized to paraspinal muscles without signs of cord compression or cauda equina. Normal neurologic exams. No red flag symptoms. No fever noted and no significant risk factors for osteomyelitis or spinal epidural abscess. No symptoms or signs to suggest pain is referred from abdominal or source. UA is clear. Discussed obtaining imaging of lumbar spine, however patient politely declined. She would like to be referred to a financial specialist. Will refer to neurosurg. Will give work note. She feels comfortable going home at this time with muscle relaxers. Advised to continue Tylenol/ibuprofen. She also has lidocaine patches at home. Discussed very strict return precautions. Patient in agreement with plan. Discharged in stable condition. <Flora Kitchen PA-C - Last Filed: 11/05/24 19:58> Medical Records Attestation: I reviewed the patient's medical records. <Flora Kitchen PA-C - Last Filed: 11/05/24 19:58> Lab Data Attestation: I reviewed the patient's lab results. <Flora Kitchen PA-C - Last Filed: 11/05/24 19:58> Labs: Lab Results 11/05/24 Range/Units 15:28 Urine Color Yellow (Yellow) Urine Appearance Clear (Clear) Urine pH 6.0 (5.0-9.0) Ur Specific [place] 1.013 (1.001-1.035) Urine Protein Negative (Negative) mg/dL Urine Glucose (UA) Negative (Negative) mg/dL Urine Ketones Negative (Negative) mg/dL Ur Blood (Man) Negative (Negative) Urine Nitrate Negative (Negative) Urine Bilirubin Negative (Negative) Urine Urobilinogen 0.2 (<2.0) mg/dL Leukocyte Esterase Rfl Negative (Negative) SAMAN/UL <Vickie Burciaga PA-C - Last Filed: 11/05/24 14:44> Lab Results 11/05/24 Range/Units 15:28 Urine Color Yellow (Yellow) Urine Appearance Clear (Clear) Urine pH 6.0 (5.0-9.0) Ur Specific [place] 1.013 (1.001-1.035) Urine Protein Negative (Negative) mg/dL Urine Glucose (UA) Negative (Negative) mg/dL Urine Ketones Negative (Negative) mg/dL Ur Blood (Man) Negative (Negative) Urine Nitrate Negative (Negative) Urine Bilirubin Negative (Negative) Urine Urobilinogen 0.2 (<2.0) mg/dL Leukocyte Esterase Rfl Negative (Negative) SAMAN/UL <Flora Kitchen PA-C - Last Filed: 11/05/24 19:58> Discharge Plan Discharge Clinical Impression: Strain of lumbar region Qualifiers: Encounter type: initial encounter Qualified Code(s): S39.012A - Strain of muscle, fascia and tendon of lower back, initial encounter <CARLOS Joe Last Filed: 11/05/24 14:44> Patient Disposition: Home <CARLOS Joe Last Filed: 11/05/24 14:44> Condition: Stable <CARLOS Joe Last Filed: 11/05/24 14:44> Instructions: Antibiotic Form, Acute Low Back Pain (ED), Lower Back Exercises (ED) <CARLOS Joe Last Filed: 11/05/24 14:44> Additional Instructions: Continue Tylenol and Ibuprofen/naproxen as needed for pain. You may use ice/heat, lidocaine patches to area of pain. Take muscle relaxers as needed and prescribed. Recommend taking these at night as they may cause sedation. Do not drive, operate heavy machinery, drink alcohol while on muscle relaxers as this may cause further sedation. Follow-up with your primary care doctor and neurosurgery for further evaluation. Return to the ED if you experience worsening or severe pain, recurrent injury, numbness in groin or legs, going to the bathroom without meaning to, unable to keep down food or drink, or any other symptoms of concern. <CARLOS Joe Last Filed: 11/05/24 14:44> Patient Language: Moroccan <CARLOS Joe Last Filed: 11/05/24 14:44> Prescriptions: New cyclobenzaprine 5 mg tablet 10 mg PO TID PRN (Reason: muscle spasm) Qty: 20 0RF No Action sertraline 100 mg tablet 100 mg PO HS sertraline 50 mg tablet 50 mg PO HS zolpidem 10 mg tablet 5 mg PO QHS trazodone 100 mg tablet 100 mg PO QHS alprazolam 0.25 mg tablet 0.25 mg PO PRN PRN (Reason: Insomnia) albuterol sulfate 90 mcg/actuation aerosol powdr breath activated 1 inh inhalation PRN PRN (Reason: Shortness Of Breath) montelukast 10 mg tablet PO methylphenidate HCl 27 mg tablet extended release 24hr PO valacyclovir 1 gram tablet PO clobetasol 0.05 % ointment 1 applic topical DAILY 14 Days Qty: 60 3RF Rx Instructions: then continue using at least 1-4x/week there after <Vickie Burciaga PA-C - Last Filed: 11/05/24 14:44> Follow-up/Referrals: Marina Mcguire MD [Physician] - (NEUROSURGERY) Jak,CARLOS Suarez [Primary Care Provider] - <Vickie Burciaga PA-C - Last Filed: 11/05/24 14:44> Stand Alone Forms: Work/School Release IP <Vickie Burciaga PA-C - Last Filed: 11/05/24 14:44> Time of Disposition: 17:33 <Vickie Burciaga PA-C - Last Filed: 11/05/24 14:44> 17:33 <Flora Kitchen PA-C - Last Filed: 11/05/24 19:58>
--- OUTSIDE RECORDS SUMMARY | 2024-11-05 14:51 | XMS_ITS | Clinical Summary ---
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 Gender Identity Not on file Sexual Orientation Not on file Plan of Treatment Health Maintenance Due Date Last Done Comments Hepatitis C Virus (HCV) Screening 1983 TdaP Immunization 1983 Hepatitis B Immunization (1 of 3 - 19+ 3-dose series) 2002 Pap Smear 2004 Cervical Cancer Screening (CCS) 2013 HPV/Cotest 2013 Discussion re Starting/Frequency of Mammograms 2023 Influenza Immunization (#1) 02/25/202402/25, 03/29/2017, 04/29/2015 SARS-COV-2 Immunization ( season) 2024 07/28/2020, 06/30/2020 Respiratory Syncytial Virus (RSV) Immunization (Adult) (1 - 1-dose 75+ series) 2058 Meningococcal Immunization (ACWY) Aged Out No longer eligible b ased on patient's age to complete this topic Pneumococcal Immunization Combined Aged Out No longer eligible b ased on patient's age to complete this topic Rotavirus Immunization Aged Out No lo nger eligible based on patient's age to complete this topic
--- OUTSIDE RECORDS SUMMARY | 2024-11-05 14:51 | XMS_ITS | Clinical Summary ---
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
[2024-11-05] MEDS: LIDOCAINE 5% PATCH 1 PATCH TRANSDERM (15:24)
[2024-11-05] MEDS: diazePAM INJ (*CRX) 10 MG/2 ML SYRINGE 5 MG IM (15:24)
[2024-11-05] MEDS: KETOROLAC 30 MG/ML VIAL (*BKC) IM (15:25)
[2024-11-05] MEDS: dexAMETHasone SOD PHOS INJ 10 MG/ML 1 ML VIAL IM (15:26)
[2024-11-05 15:36] LABS: Add Urine Microscopic? NO; Appearance Urine Clear (Clear); Bilirubin Urine Negative (Negative); Blood Urine Negative (Negative); Color Urine Yellow (Yellow); Glucose Urine UA Negative (Negative); Ketones Urine Negative (Negative); Leukocyte Esterase Ur Negative LEU/UL (Negative); Nitrate Urine Negative (Negative); Protein Urine Negative (Negative); Specific Grav Ur 1.013 (1.001-1.035); Urobilinogen Urine 0.2 mg/dL (<2.0)
--- NOTE | 2024-11-05 15:43 | PC.NURSE ---
Pt. refused urine test d/t having tubal ligation.
[2024-11-05 17:23] VITALS: BP 147/94; PULSE 77; RESP 16; TEMP 36.4; O2SAT 98
[2024-11-05] MEDS: HYDROcodone/acetaminophen (*CRX) 5-325 MG TABLET 1 TAB PO (17:25)
== END 2024-11-05 17:44 | disposition home or self-care (01) ==
PROVIDERS: Physician Assistant; Emergency Provider Physician Assistant; PCP Physician Assistant
DX: S39.012A Strain of muscle, fascia and tendon of lower back, initial encounter (principal); F90.9 Attention-deficit hyperactivity disorder, unspecified type; J45.909 Unspecified asthma, uncomplicated; F32.A Depression, unspecified; F41.9 Anxiety disorder, unspecified; X50.0XXA Overexertion from strenuous movement or load, initial encounter
CPT/HCPCS: 81003; 96372; 99284; A9270; J1100; J1885; J3360

== ENCOUNTER 2024-12-11 07:51 | Outpatient (CLI) | payer OTHER, SELFPAY ==
--- NOTE | ~2024-12-11 | US_ITS ---
Thyroid ultrasound. Clinical History: Thyroid disorder screening Findings: Real-time sonography of the thyroid gland was performed. The right lobe measures 4.6 x 1.5 x 1.2 cm. The left lobe measures 4.8 x 1.1 x 1.3 cm. The isthmus is 2 mm in AP diameter. No discrete thyroid nodule seen. Impression: No significant abnormality seen. Reviewed, dictated and finalized at location . Impression: No significant abnormality seen.
== END 2024-12-11 07:52 | disposition home or self-care (01) ==
LOC: MICIMG 07:52
PROVIDERS: PCP Physician Assistant; Visit Provider Physician Assistant
DX: Z13.29 Encounter for screening for other suspected endocrine disorder (principal)
CPT/HCPCS: 76536

== ENCOUNTER 2025-01-21 16:58 | Outpatient (CLI) | payer OTHER, SELFPAY ==
--- NOTE | ~2025-01-21 | XR_ITS ---
XR cervical spine 4-5V INDICATION: Cervicalgia TECHNIQUE: views of the cervical spine. FINDINGS: No prior studies for comparison. The cervical spine is visualized to the cervicothoracic junction. There is no prevertebral soft tiss ue swelling, listhesis, or loss of vertebral body height. Intervertebral disc spaces are normal. Th e osseous central canal is patent. No displaced cervical spine fractures are identified. IMPRESSION: 1. No acute osseous abnormality of the cervical spine. Reviewed, dictated and finalized at location B.
--- OUTSIDE RECORDS SUMMARY | 2025-01-21 17:03 | XMS_ITS | Clinical Summary ---
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 Gender Identity Not on file Sexual Orientation Not on file Plan of Treatment Health Maintenance Due Date Last Done Comments Cervical Cancer Screening Pa p Smear (Age 30 to 64) Every 3 Years 1983 Annual Physical 1986 Hepatitis C 2001 DTaP, Tdap and Td Vaccines ( 1 - Tdap) 2002 Hepatitis B Vaccines (1 of 3 - 19+ 3-dose series) 2002 HPV Vaccines (1 - 3-dose SCD M series) 2010 Cervical Cancer Screening Pa p with HPV Testing (Age 30 to 64) Every 5 Years 2013 Cervical Cancer Screening wi th HPV 2013 Mammogram Screening 2023 COVID-19 Vaccine (3 - 2023-2 5 season) 2024 07/28/2020, 06/30/2020 Meningococcal B Vaccine Aged Out No l [...]
--- OUTSIDE RECORDS SUMMARY | 2025-01-21 17:03 | XMS_ITS | Clinical Summary ---
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
--- OUTSIDE RECORDS SUMMARY | 2025-01-21 17:03 | XMS_ITS | Patient Health Record ---
Author Organization [facility] [employer] Address [address] [facility] [address] [place] [address] Care Team Providers Care Stock Holder Name Role Phone Daniela Cullen Primary Care Provider Luis Sanders Unavailable [phone] Leanne Kilpatrick Unavailable [phone] Letty Casas Unavailable [phone] Allergies No Known Allergies Results Component Value Reference Range Notes UDT Reviewed date:08/28/2024 06:06:01 PM Interpretation: Performing Lab: Notes/Report: THC NEG 0 - 50 ng/ml Cocaine NEG 0 - 300 ng/ml Amphetamine NEG 0 - 1000 ng/ml Buprenorphine (BUP) NEG 0 - 10 ng/ml Secobarbital (Bar) NEG 0 - 300 ng/ml Oxazepam (BZO) NEG 0 - 300 ng/ml 7-hcapxmrilw-7,7-ftcvbmcw-7,3-diphenylpyrrolidine (VAIBHAV P) NEG 0 - 300 ng/ml Methamphetamine (MET) NEG 0 - 1000 ng/ml Methylenedioxymethamphetamine (MDMA) NEG 0 - 500 ng/ml Morphine (MOP 300/[id number]) NEG 0 - 300 ng/ml Methadone (MTD) NEG 0 - 300 ng/ml Phencyclidine (PCP) NEG 0 - 25 ng/ml Nortriptyline (TCA) NEG 0 - 1000 ng/ml Oxycodone NEG 0 - 300 ng/ml x NEG 0 - 300 ng/ml Reason For Referral No Information Medications Medication SIG (Take, Route, Frequency, Duration) Notes Start Date End Date Status Methylphenidate HCl ER 36 MG 1 tablet ev shavon morning Oral once a day; Duration: 30 days 01/13/2025 02/12/2025 Active valACYclovir HCl 1 GM Oral 08/28/2023 Active ProAir HFA 108 (90 Base) MCG/ACT Inhalation 08/28/2023 Active ALPRAZolam 0.25 MG 1 tablet Oral once a day; Duration: 30 days As needed Active Zolpidem Tartrate 5 MG 1 tablet at bedti nv as needed Oral Once a day; Duration: 30 days 01/13/2025 02/12/2025 Active Sertraline HCl 50 MG 1 tablet Orally Once a day; Duration: 90 days take with 100mg tablet- total dose 150mg Active traZODone HCl 100 MG 1 tablet Oral Once a day; Duration: 90 days As needed Active Sertraline HCl 100 MG 1 tablet Oral Once a day; Duration: 90 days take with 50mg tablet - total dose 150mg Active Immunizations Vaccine Route Administration Date Status [...] Vaccine 1st dose Unknown 07/28/2020 Administered Novel [id number], preservative free Unknown 03/21/2020 Administered Social History [...] Risk Notes Problem Mild recurrent major depression (53181666) Major depressive disorder, recurrent, mild (F33.0) Active confirmed Problem Generalized anxiety disorder (21504303) Generalized anxiety disorder (F41.1) Active confirmed Problem Primary insomnia (6903211) Primary insomnia (F51.01) Active confirmed Problem Attention deficit hyperactivity disorder, combined type (46048428) Attention-deficit hyperactivity disorder, combined type (F90.2) Active confirmed Problem Panic disorder [episodic paroxysmal anxiety] without agoraphobia (F41.0) Active confirmed Vital Signs Heart Rate 90 /min 11/20/2024 Height-cm 161.29 cm 11/20/2024 Blood pressure diastolic 85 mm Hg 11/20/2024 Weight-kg 128.37 kg 11/20/2024 Height 63.50 in 11/20/2024 Blood pressure systolic 133 mm Hg 11/20/2024 Weight 283 lbs 11/20/2024 BMI 49.34 kg/m2 11/20/2024 Encounters Encounter Location Date Provider Diagnosis [employer] [address] [address] 04/22/2024 Luis Patel Generalized anxiety disorder F41.1 ; Attention-deficit hyperactivity disorder, combined type F90.2 ; Major depressive disorder, recurrent, mild F33.0 ; Panic disorder [episodic paroxysmal anxiety] without agoraphobia F41.0 and Primary insomnia F51.01 [employer] [address] [address] 05/28/2024 Luis Patel Generalized anxiety disorder F41.1 ; Attention-deficit hyperactivity disorder, combined type F90.2 ; Major depressive disorder, recurrent, mild F33.0 ; Panic disorder [episodic paroxysmal anxiety] without agoraphobia F41.0 and Primary insomnia F51.01 [employer] [address] [address] 08/28/2024 Luis Patel Generalized anxiety disorder F41.1 ; Attention-deficit hyperactivity disorder, combined type F90.2 ; Major depressive disorder, recurrent, mild F33.0 ; Panic disorder [episodic paroxysmal anxiety] without agoraphobia F41.0 and Primary insomnia F51.01 [employer] [address] [place] [address] 11/20/2024 Luis Patel Encounter for screen ing for cardiovascular disorders Z13.6 ; Negative depression screening Z13.31 ; Generalized anxiety disorder F41.1 ; Attention-deficit hyperactivity disorder, combined type F90.2 ; Major depressive disorder, recurrent, mild F33.0 ; Panic disorder [episodic paroxysmal anxiety] without agoraphobia F41.0 and Primary insomnia F51.01 [facility] [address] [place] [address] 01/13/2025 Letty Augusto Primary insomnia F51 .01 [facility] [address] [place] [address] 02/14/2024 Luis Patel [facility] [address] [place] [address] 02/15/2024 Luis Patel Attention-deficit hyperactivity disorder, combined type F90.2 [facility] [address] [place] [address] 03/08/2024 Luis Patel Attention-deficit hyperactivity disorder, combined type F90.2 [facility] [address] [place] [address] 03/11/2024 Luis Patel Attention-deficit hyperactivity disorder, combined type F90.2 [facility] [address] [place] [address] 03/30/2024 Luis Patel Attention-deficit hyperactivity disorder, combined type F90.2 [facility] [address] [place] [address] 04/01/2024 Luis Patel Attention-deficit hyperactivity disorder, combined type F90.2 [facility], [facility] [address] [place] [address] 04/01/2024 Luis Patel [facility], [facility] [address] [place] [address] 05/13/2024 Luis Patel [facility], [facility] [address] [place] [address] 07/03/2024 Luis Patel Attention-deficit hyperactivity disorder, combined type F90.2 [facility], [facility] [address] [place] [address] 07/04/2024 Leanne Kilpatrick Attention-deficit hyperactivity disorder, combined type F90.2 [facility] [address] [place] [address] 08/08/2024 Luis Patel Attention-deficit hyperactivity disorder, combined type F90.2 [facility] [address] [facility] [address] [place] [address] 09/16/2024 Letty Casas Attention-deficit hyperactivity disorder, combined type F90.2 [facility] [address] [facility] [address] [place] [address] 10/24/2024 Luis Patel [facility] [address] [facility] [address] [place] [address] 10/28/2024 Luis Patel Attention-deficit hyperactivity disorder, combined type F90.2 [facility] [address] [place] [address] 12/05/2024 Luis Patel Attention-deficit hyperactivity disorder, combined type F90.2 [facility] [address] [facility] [address] [place] [address] 12/05/2024 Luis Patel [facility] [address] [facility] [address] [place] [address] 01/12/2025 Letty Therpaulina Attention-deficit hyperactivity disorder, combined type F90.2 and Primary insomnia F51.01 Assessments Encounter Date Diagnosis (ICD Code) Assessment Notes Treatment Notes Treatment Clinical Notes Section Notes 02/15/2024 Attention-defici t hyperactivity disorder, combined type [...] three months, to be picked up at [facility]. - Monitor patient's medication adherence and effectiveness during follow-up visits. 07/03/2024 Attention-defici t hyperactivity disorder, combined type (ICD-10 - F90.2) 07/04/2024 Attention-defici t hyperactivity disorder, combined type (ICD-10 - F90.2) 08/28/2024 Generalized anxiety disorder (ICD-10 - F41.1) 09/16/2024 Attention-defici t hyperactivity disorder, combined type (ICD-10 - F90.2) 10/28/2024 Attention-defici t hyperactivity disorder, combined type (ICD-10 - F90.2) 12/05/2024 Attention-defici t hyperactivity disorder, combined type (ICD-10 - F90.2) 01/12/2025 Attention-defici t hyperactivity disorder, combined type (ICD-10 - F90.2) 01/13/2025 Primary insomnia (ICD-10 - F51.01) 11/20/2024 Encounter for screening for cardiovascular disorders (ICD-10 - Z13.6) 08/08/2024 Attention-defici t hyperactivity disorder, combined type (ICD-10 - F90.2) 11/20/2024 Negative depression screening (ICD-10 - Z13.31) 08/28/2024 Attention-defici t hyperactivity disorder, combined type (ICD-10 - F90.2) 01/12/2025 Primary insomnia (ICD-10 - F51.01) 05/28/2024 Attention-defici t hyperactivity disorder, combined type [...] three months, to be picked up at [facility]. - Monitor patient's medication adherence and effectiveness [...] health and stress levels during follow-up appointments. 04/22/2024 Major depressive disorder, recurrent, mild (ICD-10 [...] and stress levels during follow-up appointments. 08/28/2024 Major depressive disorder, recurrent, mild (ICD-10 - F33.0) 11/20/2024 Generalized anxiety disorder (ICD-10 - F41.1) 05/28/2024 Major depressive disorder, recurrent, mild (ICD-10 [...] three months, to be picked up at [facility]. - Monitor patient's medication adherence and effectiveness during follow-up visits. 11/20/2024 Attention-defici t hyperactivity disorder, combined type (ICD-10 - F90.2) 08/28/2024 Panic disorder [episodic paroxysmal anxiety] without agoraphobia (ICD-10 - F41.0) 04/22/2024 Panic disorder [episodic paroxysmal anxiety] without [...] three months, to be picked up at [facility]. - Monitor patient's medication adherence and effectiveness [...] three months, to be picked up at [facility]. - Monitor patient's medication adherence and effectiveness [...] health and stress levels during follow-up appointments. 11/20/2024 Major depressive disorder, recurrent, mild (ICD-10 - F33.0) 08/28/2024 Primary insomnia (ICD-10 - F51.01) 11/20/2024 Panic disorder [episodic paroxysmal anxiety] without agoraphobia (ICD-10 - F41.0) 11/20/2024 Primary insomnia (ICD-10 - F51.01) 08/28/2024 Other [...] progress in couples counseling and individual therapy. 11/20/2024 Luis Manuel Hopkins presents with chronic back pain significantly impacting daily activities and work, concurrent with ongoing treatment for depression, anxiety, and insomnia. Chronic Back Pain Assessment: Patient reports severe back pain that significantly limits daily activities, requiring her to lay on the floor with legs elevated and use a heating pad for relief. The pain is impacting her work, necessitating a standing desk accommodation. Associated symptoms include weight gain (approximately 30 pounds) and elevated blood pressure. Current management includes cyclobenzaprine and lidocaine patches, with limited efficacy. The patient is scheduled to see a neurosurgeon for further evaluation, likely including imaging studies. Plan: - Continue cyclobenzaprine - Continue lidocaine patches as needed - Await neurosurgery consultation and potential imaging studies - Encourage use of heat therapy as it provides relief - Suggest trial of ice therapy in addition to heat - Consider adding Tylenol for pain management Depression and Anxiety Assessment: Patient reports good response to current medication regimen, particularly noting improved focus, concentration, and reduced irritability at work. The patient and her are engaged in ongoing counseling. Plan: - Continue sertraline 150 mg daily for depression and anxiety Insomnia Assessment: Patient reports adequate sleep with current medication regimen, though notes occasional daytime drowsiness from pain medication. Plan: - Continue trazodone 100 mg at bedtime - Continue zolpidem 5 mg at bedtime as needed the note is transcribed using speech recognition software. It is a reflection of a visit with the patient. It might have some inaccuracy, including medication names and transcribing errors, though efforts have been made to correct them. Plan Of Treatment Next Appt Details Provider Name:Luis Mark Anthony pitt, 02/20/2025 04:15:00 PM, [address], [address], [place], [address], Insurance Providers Payer Name Payer Address Payer Phone Subscriber Number Group Number Insured Name Patient Relationship to Insured Coverage Start Date Coverage End Date [employer] Plan Management [address] [place] [address] [id number] BRIAN HOPKINS Spouse - patient is the spouse of [...] 09/05/2019 Ligation of bilateral fallopian tubes ([id number]) 09/05/2019 Endometrial ablation (79125) 2022
--- OUTSIDE RECORDS SUMMARY | 2025-01-21 17:04 | XMS_ITS | Data Portability ---
Author Organization IOANA SALLYRohit Leung Address [address] [place] [address] Care Team Providers Care Wax Bleacher Name Role Phone ARIANASURINDERNITINIE Primary Care Provider Unavailab le Assessment No assessment recorded. Plan of Treatment Reminders Order Date Submit Date Provider Last Modified By Organization Details Last Modified Time Details Appointments None recorde d. Lab TSH + free T4, serum 2024 025 [employer] [facility], [facility] [address], [address], 13:58:02 thyroid peroxid ase (tpo) Ab, serum 2024 025 [employer] [facility], [facility] [address], [address], 5 13:59:21 lipid panel, serum 2024 025 [employer]ISA [employer] [facility], [facility] [address], [address], 5 12:42:35 CBC w/ auto diff 2024 025 [employer] [facility], [facility] [address], [address], 5 13:59:35 CMP, serum or plasma 2024 025 [employer] [facility], [address] [place], [address], 5 13:58:25 vitamin B12 + folate, serum or blood 2024 025 [facility], [address] [facility], [address], [place], [address], 5 13:59:47 progest erone, serum 2024 025 [facility], [address] [address], [place], [address], 5 14:00:17 lh + FSH, serum 2024 025 [facility], [address] [address], [place], [address], 5 14:00:06 estradi ol, serum 2024 025 [facility], [facility] [address] [address], [place], [address], 5 14:00:27 HbA1c (hemogl obin A1c), blood 2024 025 [facility], [facility] [address], [address], 5 13:58:43 TSH + free T4, serum 2023 024 [employer] [facility], [facility] [address], [address], 4 09:34:36 lipid panel, serum 2023 024 [facility] [facility], [address], [address], 4 09:34:36 CBC w/ auto diff 2023 024 [employer] [facility], [address] [facility] [facility], [address], [place], [address], 4 09:34:37 CMP, serum or plasma 2023 024 [employer] [facility], [address] [facility] [facility], [address], [place], [address], 4 09:34:36 vitamin B12 + folate, serum or blood 2023 024 [employer] [facility], [address] [facility], [address], [place], [address], 4 09:34:37 HbA1c (hemogl obin A1c), blood 2023 024 [employer] [facility], [address] [facility] [facility], [address], [place], [address], 4 09:34:37 Referral None recorde d. Procedures None recorde d. Surgeries None recorde d. Imaging US, thyroid 2024 [facility], [address], [address], [address], 5 13:44:39 Medication Orders naproxe n 500 mg tablet 2024 [id number], [address] [place], [place], [id number], 5 16:16:28 cyclobe nzaprin e 5 mg tablet 2024 025 [facility], [address], [place], [id number], 5 16:16:28 triamte allen 37.5 mg-hydr ochloro thiazid e 25 mg tablet 2024 025 [id number], [address] [facility], [place], [place], [id number], 13:42:56 Zepboun d 2.5 mg/0.5 mL subcuta neous pen injecto r 2023 024 [facility][id number], [address] [facility], [place], [place], [id number], 15:44:06 Patient TargetsNo targets recorded. Patient Instructions Encounter Date Encounter Id Patient Instructions Last Modified By Organization Details Last Modified Time 09/26/2023 [id number] A healthy lifestyle: care instructions Not available 10/08/2023 11:01:18 11/28/2024 [id number] A healthy lifestyle: care instructions Not available 11/28/2024 16:16:09 Reason for Referral None Reported. Results Created Date Observation Date Name Description Value Unit Range Abnormal Flag Note LastModifiedBy Organization Detail LastModifiedTime 02/19/2002/19/2024 MAMMO , scree elicia, digit al, bilat eral No observ ation record ed. [email or web address] [facility] [address], [place], [address], 02/19/2024 18:28:23 12/12/19 25 12/11/2024 US, thyro id No observ ation record ed. [facility] [address], [place], [address], 12/12/2024 15:53:20 Result Notes None recorded. Problems Name Problem SNOMED Code Status Onset Date Resolution Date Notes Provider Name and Address Organization Details Recorded Time Mixed anxiety and depressive disorder 580331644 Active 2023 BRAYDEN Hill Attn: Mounika g,[address] [facility], [place], [address], [facility] 04/14/202 4 11:01:52 Attention deficit hyperactivity disorder 582886715 Active 2023 BRAYDEN Hill Attn: Mounika g,[address] [place], [address], [place] [facility] 4 11:01:53 Long-term drug therapy Active 2023 BRAYDEN Hill Attn: Mounika reinoso,[address] [place], [address], [place] [facility] 4 11:01:56 Body mass index 40+ - severely obese 443352699 Active 2023 BRAYDEN Hill Attn: Accountin g,[address] [place], [address], [place] [facility] 4 11:01:57 Morbid obesity 309340865 Active 2023 BRAYDEN Hill Attn: Accountin g,[address] [place], [address], [place] [facility] 4 11:01:58 Chronic low back pain 350629071 Active 2024 BRAYDEN Hill Attn: Joselinin g,[address] [place], [address], [place] [facility] 5 23:04:53 Obese class III 383766126 Active 2024 BRAYDEN Hill Attn: Mounika g,[address] [place], [address], [place] [facility] 5 23:05:07 Menopause finding 375542388 Active 2024 BRAYDEN Hill Attn: Joselinin g,[address] [place], [address], [place] [facility] 5 23:05:18 Elevated blood-pressure reading without diagnosis of hypertension 755467911 Active 2024 BRAYDEN Hill Attn: Joselinin g,[address] [place], [address], [facility] 23:06:12 Problem Notes None recorded. Procedures Surgical History Date Name Laterality Status Provider Name and Address Organization Details Recorded Time LEEP completed Titus Hurt MA [facility] 09/26/2023 17:29:18 ligation of bilateral fallopian tubes completed Titus Hurt MA [facility] 09/26/2023 17:29:27 D & c after delivery completed Titus Hurt MA [facility] 09/26/2023 17:29:44 Imaging Results None recorded. Procedure Notes None recorded. Medical Equipment None Reported. Allergies No known drug allergies Medications Name Sig Start Date Stop Date Status Note LastModified by Organization Details LastModified Time cyclobenzap rine 10 mg tablet TAKE 1 TABLET BY MOUTH THREE TIMES DAILY NEEDED FOR LOW BACK PAIN 11/28 completed Not Available Not Available Not Available azithromyci n 250 mg tablet 09/25 [...] mg tablet TAKE 1 TABLET BY MOUTH ONCE DAILY WITH 50 MG FOR TOTAL DOSE OF 150 MG active Not Available Not Available No t Available sulfamethox azole 800 mg-trimetho prim 160 mg tablet TAKE 1 TABLET BY MOUTH EVERY 12 HOURS 09/25 completed Not Available Not Available Not Available alprazolam 0.25 mg tablet TAKE 1 TABLET BY MOUTH DAILY NEEDED active Not Available Not Available No t Available trazodone 100 mg tablet TAKE 1 TABLET BY MOUTH ONCE DAILY NEEDED active Not Available Not Available No t Available triamterene 37.5 mg-hydrochl orothiazide 25 mg tablet TAKE 1 TABLET BY MOUTH EVERY DAY 12/17 completed Not Available Not Available Not Available montelukast 10 mg tablet TAKE 1 TABLET BY MOUTH DAILY 11/28 completed Not Available Not Available Not Available zolpidem 5 mg tablet TAKE 1 TABLET BY MOUTH DAILY AT BEDTIME NEEDED active Not Available Not Available No t Available clobetasol 0.05 % topical ointment Apply by topical route as needed for 25 days. active Not Available Not Available No t Available methylpredn isolone 4 mg tablets in a dose pack FOLLOW PACKAGE DIRECTION S 11/28 completed Not Available Not Available Not Available methylpheni date ER 18 mg tablet,exte nded release 24 hr 09/25 completed Not Available Not Available Not Available sertraline 50 mg tablet TAKE ONE TABLET BY MOUTH DAILY WITH 100MG TABLET active Not Available Not Available No t Available naproxen 500 mg tablet TAKE 1 TABLET BY MOUTH TWICE DAILY WITH MEALS. active Not Available Not Available No t Available methylpheni date ER 36 mg tablet,exte nded release 24 hr TAKE 1 TABLET BY MOUTH EVERY MORNING active Not Available Not Available No t Available amoxicillin 875 mg-potassiu m clavulanate 125 mg tablet TAKE 1 TABLET BY MOUTH EVERY 12 HOURS FOR 10 DAYS 09/25 completed Not Available Not Available Not Available methylpheni date ER 27 mg tablet,exte nded release 24 hr TAKE 1 TABLET BY MOUTH ONCE DAILY IN THE MORNING 11/28 completed Not Available Not Available Not Available cyclobenzap rine 5 mg tablet TAKE 1 TABLET BY MOUTH THREE TIMES DAILY NEEDED 2024 active Not Available Not Available Not Avai lable dexmethylph enidate ER 10 mg capsule,ext ended release [id number]- 50 TAKE 1 CAPSULE BY MOUTH EVERY DAY IN THE MORNING 09/25 completed Not Available Not Available Not Available hydrochloro thiazide 12.5 mg tablet TAKE 1 TABLET BY MOUTH EVERY DAY active Not Available Not Available No t Available Zepbound 2.5 mg/0.5 mL subcutaneou s pen injector Inject 2.5 mg every week by subcutane ous route. 11/28 completed Not Available Not Available Not Available Vitals Date Recorded Body height Body mass index (BMI) Body weight Oxygen saturation Oxygen saturation in Arterial blood by Pulse oximetry Heart rate Respiratory rate Systolic And Diastolic Provider Name and Address Organization Details Last Updated DateTime 161.29 cm 46.4 kg/m2 758632. 57 g 100 % 100 % 69 /min 18 /min 132/82 mm[Hg] Titus Hurt MA [facility] 4 16:48:14 Date Recorded Systolic And Diastolic Provider Name and Address Organization Details Last Updated DateTime 11/28/2024 138/90 mm[Hg] BRAYDEN Hill Attn: Accounting,[address] [facility], [place], [address], [facility] 11/28/2024 16:18:16 Date Recorded Body height Body mass index (BMI) Body weight Oxygen saturation Oxygen saturation in Arterial blood by Pulse oximetry Heart rate Respiratory rate Systolic And Diastolic Provider Name and Address Organization Details Last Updated DateTime 161.29 cm 48.1 kg/m2 945705. 49 g 98 % 98 % 100 /min 20 /min 138/82 mm[Hg] Titus Hurt MA [facility] 5 15:48:46 Social History Question Answer Notes LastModified by Organizat ion Details LastModified Time Tobacco Smoking Status Never Smoker Titus Hurt MA null, [facility] 09/26/2023 16:44:03 Do You Have An Advance Directive? No Information n ot available 11/28/2024 Are You Blind Or Do You Have [...] Date Of Your Most Recent Tobacco Screening? 11/28/2024 Information not available 11/28/2024 Do You Use Your Seat Belt Or [...] Occasional Information not available 09/26/2023 Are you currently employed? Yes Information not available 11/28/2024 Are you able to care for yourself independently? Yes Information not available 09/26/2023 What is your exercise level? None Information not available 09/26/2023 Mental Status Question Answer Note LastModified by Organization D etails LastModified Time Do you feel stressed (tense, restless, nervous, or anxious, or unable to sleep at night)? [id number] Information not available 09/26/2023 Family History Relationship [...] High Blood Pressure N Atrial Fibrillation N Kidney or Bladder Problems N Thyroid Problems N GI Problems N Depression Y COPD N Blood Clots N Skin Problems N Anemia N Heart Attack (IA) N Anxiety Disorder Y Diabetes N Muscle, Joint, or Bone Problems N Seizures/Epilepsy N Acid Reflux (GERD) N Cancer N Stroke N Asthma Y Allergies Y High Cholesterol N Hepatitis N Liver Disease N Headaches N Heart Failure N Osteoporosis N Gynecological History Statement/Question Response Flow Moderate Date of LMP 11/18/2024 Menses Monthly Y Duration of Flow (days) 3 Current Control Method LMP Definite Obstetrics History GPAL:G 2 P 1 0 0 1 Type Value Multiple Births 0 Full Term 1 Induced 0 Spontaneous 0 Premature 0 Living 1 Total 2 Immunizations Vaccine Type Date Status Note Provider Nam e and Address Organization Details Recorded Time influenza, seasonal, intradermal, preservative free 3 completed Not Available [facility] 11/28/2024 15:29:54 MMR 5 completed Not Available [facility] 11/28/2024 15:29:54 Influenza, split virus, quadrivalent, preservative 5 completed Not Available [facility] 11/28/2024 15:29:54 Influenza, split virus, quadrivalent, preservative 7 completed Not Available [facility] 11/28/2024 15:29:54 Influenza, split virus, quadrivalent, PF 0 completed Not Available [facility] 11/28/2024 15:29:54 COVID-19, mRNA, LNP-S, PF, 100 mcg/0.5mL dose or 50 mcg/0.25mL dose 1 completed Not Available [facility] 11/28/2024 15:29:54 COVID-19, mRNA, LNP-S, PF, 100 mcg/0.5mL dose or 50 mcg/0.25mL dose 1 completed Not Available [facility] 11/28/2024 15:29:54 Influenza, split virus, trivalent, PF 4 completed Not Available [facility] 11/28/2024 15:29:54 Past Encounters Encounter ID Performer Location Encounter Start Date Encounter Closed Date Diagnosis/Indication Diagnosis SNOMED-CT Code Diagnosis ICD10 Code Diagnosis Note [id number] Bob Bower MD [facility] [employer] [address] [place] [address] 09/26/2023 16:28:14 09/26/2023 17:08:56 Cholesterol screening 339464081 Z13.220 fasting lipids are due Diabetes m ellitus screening 393228303 Z13.1 annual a1c screening due Thyroid di sorder screening 071867094 Z13.29 thyroid panel is due Mixed anxi ety and depressive disorder 554478022 F41.8 patient is doing excellent on sertraline 150mg daily therapy, [facility]. Attention deficit hyperactivity disorder 094880646 F90.9 [facility] and excellent life changing results on methylphen idate ER 27mg daily. Adult [facility] examination 883333698 Z00.01 annual wellness exam completed. pt re-establi sh from last PCP office. Long-term drug therapy 581180474 Z79.899 routine cbc, cmp and b12, folate labs due for annual review Body mass index 40+ - severely obese 347351087 Z68.42 start zepbound injectable therapy. no personal or family hx of Medullary thyroid cancer or MEN conditions . Morbid obesity 594134475 E66.01 discussed healthy diet, exercise, controllin g carbohydra darline and added sugars in the diet [id number] Bob Bower MD [facility] [employer] [address] [place] [address] 11/28/2024 15:14:36 11/29/2024 11:02:50 Body mass index 40+ - severely obese 331705360 Z68.42 Unfortunat archie injectable weight loss therapy was not covered by her insurance Obese class III 56953463 5 E66.813 discussed healthy diet, exercise, controllin g carbohydra darline and added sugars in the diet Chronic low back pain 27 3003183 M54.50 G89.29 Start naproxen 500 mg twice daily with meals and cyclobenza kaden 5 mg 3 times daily as needed Adult heal th examination 145719005 Z00.01 annual wellness exam completed. Mixed anxi ety and depressive disorder 673373056 F41.8 patient is doing excellent on sertraline 150mg daily therapy, [facility]. Attention deficit hyperactivity disorder 398484718 F90.9 new dx with [facility] and excellent life changing results on methylphen idate ER 27mg daily. Cholesterol screening 27 4177574 Z13.220 fasting lipids are due Diabetes m ellitus screening 907774222 Z13.1 annual a1c screening due Thyroid di sorder screening 879795310 Z13.29 thyroid panel is due Long-term drug therapy 646723697 Z79.899 routine cbc, cmp and b12, folate labs due for annual review Menopause finding 460318 006 N95.1 Patient requests hormone levels Elevated blood-pressure reading without diagnosis of hypertension 107535350 R03.0 Blood pressure 138/90. Start low-dose Maxzide therapy along with keeping salt and caffeine monitored in the diet and exercise to help treat mild elevation in blood pressure Health Concerns Section Related Observation LastModified by Organization Detai ls LastModified Time None Recorded Concern Status LastModified by Organization Details LastModified Time None Recorded Advance Directives Directive N: Payers Insurance Date Sequence Insurance Name Policy Number Policy Simons Covered Member ID Simons Member ID Guarantor Name 12/17/2024 1 [employer] (PPO) James Hopkins [id number] Judie Perales Episode No OBEpisode recorded.
--- OUTSIDE RECORDS SUMMARY | 2025-01-21 17:04 | XMS_ITS | Data Portability ---
Author Organization [facility] [facility] [employer], Main Office Address [address] [place] [address] Assessment No assessment recorded. Plan of Treatment Reminders Order Date Submit Date Provider Last Modified By Organization Details Last Modified Time Details Appointments None recorded. Lab lipid panel, serum 023 023 [facility], [address], [address], 3 13:28:45 CMP, serum or plasma 023 023 [facility], [address], [address], 3 13:28:46 CBC w/ auto diff 023 023 [facility], [address], [address], 3 13:28:48 TSH + free T4, serum 023 023 [facility], [address], [address], 3 13:28:44 HbA1c (hemoglob in A1c), blood 023 023 [facility], [address], [address], 3 13:28:47 insulin, serum 023 023 [facility], [address] [facility] [address], [place], [address], 13:28:49 Referral None recorded. Procedures None recorded. Surgeries None recorded. Imaging None recorded. Medication Orders Bactrim DS 800 mg-160 mg tablet 023 023 [id number], [address] [facility], [place], [place], [id number], 10:05:36 Patient TargetsNo targets recorded. Patient InstructionsNo [...] Third trime ster 0.43- 2.91 Not Available [facility] [address], [address], 10/27/2022 13:28:44 10/27/19 23 10/27/2022 TSH+F REE T4 T4, free 0.8 NG/dL 0.8-1. 8 normal Not Available [facility] [address] [place], [address], 10/27/2022 13:28:44 10/27/19 23 10/27/2022 LIPID PANEL WITH RATIO S cholesterol, total 200 mg/dL <200 high Not Available [facility] [address], [address], 10/27/2022 13:28:45 10/27/19 23 10/27/2022 LIPID PANEL WITH RATIO S HDL cholesterol 73 mg/dL > or = 50 normal Not Available [facility] [address], [address], 10/27/2022 13:28:45 10/27/19 23 10/27/2022 LIPID PANEL WITH RATIO S triglyceride s 71 mg/dL <150 normal Not Available [address], [address], 10/27/2022 13:28:45 10/27/19 23 10/27/2022 LIPID PANEL [...] lated using the Radha n-Hop kins calcu rodrick n, which is a valid ated novel izabelo d cheti channing nolan r accur acy than the Fried anirudh equat ion in the estim ation of LDL-C . Radha williamson SS et al. JARAD. 2013; 310(1 9): 2061- 2068 (http ://ed ucati on.Qu estWebber Aerospace. com/f aq/FA Q164) Not Available [address], [address], 10/27/2022 13:28:45 10/27/19 23 10/27/2022 LIPID PANEL WITH RATIO S chol/HDLC ratio 2.7 (calc ) <5.0 normal Not Available [address], [address], 10/27/2022 13:28:45 10/27/19 23 10/27/2022 LIPID PANEL WITH RATIO S LDL/HDL ratio 1.5 (calc ) Below avera ge Risk: <2.34 [place] ge Risk: 2.35- 4.12 Moder ate Risk: 4.13- 5.56 High Risk: >5.57 Not Available [address], [address], 10/27/2022 13:28:45 10/27/19 23 10/27/2022 LIPID PANEL WITH RATIO S non HDL cholesterol 127 mg/dL _(magalis c) <130 normal For patie nts with diabe darline plus 1 major ASCVD risk facto r, treat ing to a non-H DL-C goal of <100 mg/dL (LDL- C of <70 mg/dL ) is consi dered a thera peuti c optio n. Not Available [place] [address] [place], [address], 10/27/2022 13:28:45 10/27/19 23 10/27/2022 COMPR EHENS ZABRINA METAB OLIC PANEL glucose 86 mg/dL 65-99 normal Fasti ng refer ence inter han Not Available [place] [address] [place], [address], 10/27/2022 13:28:46 10/27/19 23 10/27/2022 COMPR EHENS ZABRINA METAB OLIC PANEL urea nitrogen (BUN) 12 mg/dL 7-25 normal Not Available [facility] [place] [address] [place], [address], 10/27/2022 13:28:46 10/27/19 23 10/27/2022 COMPR EHENS ZABRINA METAB OLIC PANEL creatinine 0.70 mg/dL 0.50-0 .97 normal Not Available [place] [address] [place], [address], 10/27/2022 13:28:46 10/27/19 23 10/27/2022 COMPR EHENS ZABRINA METAB OLIC PANEL eGFR 113 mL/mi n/1.7 3m2 > or = 60 normal The eGFR is based on the CKD-E PI 2020 sheritaat heike. To calcu late the new eGFR from a previ ous Creat inine or Cysta tin C resul t, go to https ://kisha cruz.deja vlileda/bean butt s/ kdoqi /gfr% 5Fcal culat or Not Available [facility] [address], [address], 10/27/2022 13:28:46 10/27/19 23 10/27/2022 COMPR EHENS ZABRINA METAB OLIC PANEL BUN/creatini ne ratio NOT APPLIC ABLE (calc ) 6-22 Not Available [address], [address], 10/27/2022 13:28:46 10/27/19 23 10/27/2022 COMPR EHENS ZABRINA METAB OLIC PANEL sodium 137 mmol/ L 135-14 6 normal Not Available [address], [address], 10/27/2022 13:28:46 10/27/19 23 10/27/2022 COMPR EHENS ZABRINA METAB OLIC PANEL potassium 3.9 mmol/ L 3.5-5. 3 normal Not Available [address], [address], 10/27/2022 13:28:46 10/27/19 23 10/27/2022 COMPR EHENS ZABRINA METAB OLIC PANEL chloride 104 mmol/ L 98-110 normal Not Available [address], [address], 10/27/2022 13:28:46 10/27/19 23 10/27/2022 COMPR EHENS ZABRINA METAB OLIC PANEL carbon dioxide 26 mmol/ L 20-32 normal Not Available [address], [address], 10/27/2022 13:28:46 10/27/19 23 10/27/2022 COMPR EHENS ZABRNIA METAB OLIC PANEL calcium 9.2 mg/dL 8.6-10 .2 normal Not Available [address], [address], 10/27/2022 13:28:46 10/27/19 23 10/27/2022 COMPR EHENS ZABRINA METAB OLIC PANEL protein, total 7.1 g/dL 6.1-8. 1 normal Not Available [address], [address], 10/27/2022 13:28:46 10/27/19 23 10/27/2022 COMPR EHENS ZABRINA METAB OLIC PANEL albumin 4.3 g/dL 3.6-5. 1 normal Not Available [address], [address], 10/27/2022 13:28:46 10/27/19 23 10/27/2022 COMPR EHENS ZABRINA METAB OLIC PANEL globulin 2.8 g/dL_ (calc ) 1.9-3. 7 normal Not Available [address], [address], 10/27/2022 13:28:46 10/27/19 23 10/27/2022 COMPR EHENS ZABRINA METAB OLIC PANEL albumin/glob ulin ratio 1.5 (calc ) 1.0-2. 5 normal Not Available [address], [address], 10/27/2022 13:28:46 10/27/19 23 10/27/2022 COMPR EHENS ZABRINA METAB OLIC PANEL bilirubin, total 0.9 mg/dL 0.2-1. 2 normal Not Available [address], [address], 10/27/2022 13:28:46 10/27/19 23 10/27/2022 COMPR EHENS ZABRINA METAB OLIC PANEL alkaline phosphatase 64 U/L 31-125 normal Not Available [facility] [address], [address], 10/27/2022 13:28:46 10/27/19 23 10/27/2022 COMPR EHENS ZABRINA METAB OLIC PANEL AST 18 U/L 10-30 normal Not Available [address] [place], [address], 10/27/2022 13:28:46 10/27/19 23 10/27/2022 COMPR EHENS ZABRINA METAB OLIC PANEL ALT 17 U/L 6-29 normal Not Available [facility] [place] [address] [address] [place], [address], 10/27/2022 13:28:46 10/27/19 23 10/27/2022 HEMOG LOBIN [...] Curre ntly, no conse nsus exist s ginny snell use of hemog lobin A1c for diagn [...] Care in Diabe darline(A DA). Not Available [facility] [address] [address] [place], [address], 10/27/2022 13:28:47 10/27/19 23 10/27/2022 CBC (INCL UDES DIFF/ PLT) white blood cell count 9.3 thous and/u L 3.8-10 .8 normal Not Available [facility] [address] [place], [address], 10/27/2022 13:28:48 10/27/19 23 10/27/2022 CBC (INCL UDES DIFF/ PLT) red blood cell count 4.49 bela on/uL 3.80-5 .10 normal Not Available [address], [address], 10/27/2022 13:28:48 10/27/19 23 10/27/2022 CBC (INCL UDES DIFF/ PLT) hemoglobin 13.5 g/dL 11.7-1 5.5 normal Not Available [address], [address], 10/27/2022 13:28:48 10/27/1910/27/2022 CBC (INCL UDES DIFF/ PLT) hematocrit 40.4 % 35.0-4 5.0 normal Not Available [address], [address], 10/27/2022 13:28:48 10/27/19 23 10/27/2022 CBC (INCL UDES DIFF/ PLT) MCV 90.0 fL 80.0-1 00.0 normal Not Available [address], [address], 10/27/2022 13:28:48 10/27/1910/27/2022 CBC (INCL UDES DIFF/ PLT) MCH 30.1 pg 27.0-3 3.0 normal Not Available [address], [address], 10/27/2022 13:28:48 10/27/19 23 10/27/2022 CBC (INCL UDES DIFF/ PLT) MCHC 33.4 g/dL 32.0-3 6.0 normal Not Available [address], [address], 10/27/2022 13:28:48 10/27/19 23 10/27/2022 CBC (INCL UDES DIFF/ PLT) RDW 13.5 % 11.0-1 5.0 normal Not Available [address], [address], 10/27/2022 13:28:48 10/27/19 23 10/27/2022 CBC (INCL UDES DIFF/ PLT) platelet count 281 thous and/u L 140-40 0 normal Not Available [address], [address], 10/27/2022 13:28:48 10/27/19 23 10/27/2022 CBC (INCL UDES DIFF/ PLT) MPV 9.3 fL 7.5-12 .5 normal Not Available [address], [address], 10/27/2022 13:28:48 10/27/19 23 10/27/2022 CBC (INCL UDES DIFF/ PLT) absolute neutrophils 5552 cells /uL 1500-7 800 normal Not Available [address], [address], 10/27/2022 13:28:48 10/27/19 23 10/27/2022 CBC (INCL UDES DIFF/ PLT) absolute lymphocytes 3162 cells /uL 850-39 00 normal Not Available [address], [address], 10/27/2022 13:28:48 10/27/19 23 10/27/2022 CBC (INCL UDES DIFF/ PLT) absolute monocytes 512 cells /uL 200-95 0 normal Not Available [address], [address], 10/27/2022 13:28:48 10/27/19 23 10/27/2022 CBC (INCL UDES DIFF/ PLT) absolute eosinophils 28 cells /uL 15-500 normal Not Available [address], [address], 10/27/2022 13:28:48 10/27/19 23 10/27/2022 CBC (INCL UDES DIFF/ PLT) absolute basophils 47 cells /uL 0-200 normal Not Available [address], [address], 10/27/2022 13:28:48 10/27/19 23 10/27/2022 CBC (INCL UDES DIFF/ PLT) neutrophils 59.7 % normal Not Available [address], [address], 10/27/2022 13:28:48 10/27/19 23 10/27/2022 CBC (INCL UDES DIFF/ PLT) lymphocytes 34.0 % normal Not Available [address], [address], 10/27/2022 13:28:48 10/27/19 23 10/27/2022 CBC (INCL UDES DIFF/ PLT) monocytes 5.5 % normal Not Available [address], [address], 10/27/2022 13:28:48 10/27/19 23 10/27/2022 CBC (INCL UDES DIFF/ PLT) eosinophils 0.3 % normal Not Available [address], [address], 10/27/2022 13:28:48 10/27/19 23 10/27/2022 CBC (INCL UDES DIFF/ PLT) basophils 0.5 % normal Not Available [facility] [address], [address], 10/27/2022 13:28:48 10/27/19 23 10/27/2022 INSUL IN insulin 13.5 uIU/m L normal Refer ence Range < or = 18.4 Risk: Optim al < or = 18.4 Moder ate NA High >18.4 Adult cardi ovasc ular event risk categ ory cut point s (opti mal, moder ate, high) are based on Insul in Refer ence Inter han studi es perfo rmed at [facility] in 2021. Not Available [facility] [address], [place], [address], 10/27/2022 13:28:48 10/03/19 21 10/02/2020 US, pelvi s, trans abdom inal + trans vagin al No observ ation record ed. [id number] [facility] [address] [place], [address], 08/24/2022 03:00:42 10/03/19 21 10/02/2020 US, obste tric, trans vagin al No observ ation record ed. [id number] [facility] [address] [place], [address], 08/24/2022 03:00:42 10/03/19 21 10/02/2020 US, trans vagin al [facility] [address] [place] [address] Patien t Name: KRISHNA HOPKINS Access ion #: [id number] Sex: F : 1984 2 Locati on: RAD Attend ing Physic jose: JEANINE COOPER Orderi Physic jose: JEANINE COOPER Exam Date: 10/03/19 8:41 AM Exam Name: [...] to each ovary. Page 1 of 2 [facility] mayito Name: KRISHNA HOPKINS ion #: [id number] Sex: F : 1984 2 Exam [...] DO (CT) (CT) Page 2 of 2 [id number] [facility] (Imaging) [address] [place], [address], 08/24/2022 03:00:42 Result Notes None recorded. Problems Name Problem SNOMED Code Status Onset Date Resolution Date Notes Provider Name and Address Organization Details Recorded Time Past history of miscarriag e 594671800 Active Not Available [facility] 3 02:53:22 Mood swings 53258905 Active Not Available [facility] 3 02:53:22 Bruxism 479879735 Active Not Available [facility] 3 02:53:22 Insomnia 793657220 Active Not Available [facility] 3 02:53:22 Asthma 460929997 Active Not Available [facility] 3 02:53:22 Benign essential hypertensi on complicati ng , childbirth and the puerperium - not delivered 497895065 Completed Not Available [facility] 3 02:53:22 Mixed anxiety and depressive disorder 968826163 Active RADHA Portillo [place], [place] [facility] [place] [facility] 3 11:50:38 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- plan eval pp per PCP Not Available [facility] 3 02:53:22 Vaginal odor 985058352 Active Not Available [facility] 3 02:53:22 Hyperemesi s 436848579 Completed Not Available [facility] 3 02:53:22 Anxiety 83790438 Active RADHA Portillo null, [facility] 3 11:50:53 Dyspareuni a 33411447 Active Not Available [facility] 3 02:53:22 Acute sinusitis 87518127 Active 2021 Not Available [facility] 3 02:53:22 Acute right otitis media 098310366 Active 2022 [facility] [address] [facility] [address], [place], [address] , [place] 3 10:03:29 Problem Notes None recorded. Procedures Surgical History Date Name Laterality Status Provider Name and Address Organization Details Recorded Time 2 dilation and curettage completed RADHA Portillo [place] 10/20/2022 09:31:37 0 [employer] Surgery completed Not Available [facility] 08/25/19 02:47:42 0 Date of Last Pap Smear completed Not Available [facility] 08/24/2022 02:47:39 [employer] Surgery completed Not Available [facility] 08/24/2022 02:47:42 Imaging Results None recorded. Procedure Notes None [...] enidate ER 10 mg capsule,ext ended release [id number] active Not Available Not Available Not [...] Not Available N ot Available Gildess FE 1/20 (28) 1 mg-20 mcg (21)/75 mg (7) [...] Not Available Not Available Not Available Fluvirin 9483-2193(P F) 45 mcg (15 mcg x3)/0.5 mL intramuscul ar syringe active Not Available Not Available N ot Available albuterol sulfate 90 mcg/actuati on breath activated powder inhaler Inhale 2 puffs every 4 hours by inhalatio n route as needed. 02/28 completed Not Available Not Available Not Available Fluzone Quad 3418-2100 60 mcg (15 mcg x 4)/0.5 mL IM suspension 12/28 completed Not Available Not Available Not Available Fluzone Quad 2566-7305 60 mcg (15 mcg x 4)/0.5 mL IM suspension 11/02 completed Not Available Not Available Not Available Fluzone Quad (PF) 60 mcg (15 mcg x 4)/0.5 mL IM syringe [facility] active Not Available Not Available No t Available Vitals Date Recorded Body mass index (BMI) Body height Body temperature Body weight Systolic And Diastolic Provider Name and Address Organization Details Last Updated DateTime 09/22/2020 45.7 kg/m2 160.02 cm 98.3 [degF] 897574. 83 g 122/74 mm[Hg] Not Available [facility] 3 02:50:39 Date Recorded Body mass index (BMI) Body height Body temperature Body weight Systolic And Diastolic Provider Name and Address Organization Details Last Updated DateTime 10/20/2020 46.4 kg/m2 160.02 cm 97.3 [degF] 324046. 2 g 126/78 mm[Hg] Not Available [facility] 3 02:50:39 Date Recorded Body height Body temperature Body mass index (BMI) Body weight Respiratory rate Oxygen saturation Oxygen saturation in Arterial blood by Pulse oximetry Heart rate Systolic And Diastolic Provider Name and Address Organization Details Last Updated DateTime 3 160.02 cm 98 [degF] 37.4 kg/m2 91506.9 9 g 16 /min 98 % 98 % 78 /min 128/80 mm[Hg] RADHA Portillo [facility] [employer] [facility] 3 09:33:06 Date Recorded Body mass index (BMI) Body height Oxygen saturation Oxygen saturation in Arterial blood by Pulse oximetry Heart rate Respiratory rate Body temperature Body weight Systolic And Diastolic Provider Name and Address Organization Details Last Updated DateTime 1 46.5 kg/m2 160.02 cm 96 % 96 % 89 /min 16 /min 98 [degF] 880626. 64 g 128/82 mm[Hg] Not Available [facility] 3 02:50:39 Date Recorded Body mass index (BMI) Body height Oxygen saturation Oxygen saturation in Arterial blood by Pulse oximetry Heart rate Body temperature Body weight Systolic And Diastolic Provider Name and Address Organization Details Last Updated DateTime 1 46.6 kg/m2 160.02 cm 98 % 98 % 80 /min 98 [degF] 314368. 87 g 120/80 mm[Hg] Not Available [facility] 3 02:50:39 Social History Question Answer Notes LastModified by Organizat ion Details LastModified Time Tobacco Smoking Status Never Smoker KIKA Lindsay, [facility] [employer] 10/20/2022 09:26:28 What Is Your Level Of Caffeine Consumption? Moderate [id number] Information not available 08/24/2022 How Much Tobacco Do You Chew? None [id number] Information not available 08/24/2022 In The 14 [...] Type Of Diet Are You Following? REGULAR [id number] Information not available 08/24/2022 Which Illicit Or [...] How Much Tobacco Do You Smoke? No [id number] Information not available 08/24/2022 Do You Use Sunscreen Routinely? Yes Information not available 10/20/2022 Have You Recently Traveled Abroad? No Information not available 10/20/2022 Do You Have Any Dietary Restrictions? No Information not available 10/20/2022 Sex: Unknown Functional Status Question Answer Note LastModified by [employer] ion Details LastModified Time Do you use any illicit or recreational drugs? No Information not available 10/20/2022 Do you or have you ever used any other forms of tobacco or nicotine? No Information not available 10/20/2022 What is your level of alcohol consumption? Occasional [id number] Information not available 08/24/2022 Do you or have you ever used smokeless tobacco? Never used smokeless tobacco [id number] Information not available 08/24/2022 Are you currently employed? 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 Never used electronic cigarettes Information not available 10/20/2022 What is your exercise level? Occasional [id number] Information not available 08/24/2022 Mental Status None recorded. Family History Relationship Description Onset Age of this Age Resolved Age Notes LastModified by Organization Details LastModified Time Father Carcinoma of prostate Not available 2022 09:26:28 Unspecified Relation Hypertensive disorder [id number] Not available 08/24/2022 02:47:46 Unspecified Relation Myocardial infarction [id number] Not available 08/24/2022 02:47:46 Mother Malignant neoplasm of skin [id number] Not available 10/20 09:33:50 Notes:no new Medical [...] 50 mcg/0.25mL dose 1 completed Not Available [facility] 08/24/2022 03:00:05 COVID-19, mRNA, LNP-S, PF, 100 mcg/0.5mL dose or 50 mcg/0.25mL dose 1 completed Not Available [facility] 08/24/2022 03:00:06 influenza, unspecified formulation 0 completed Not Available [facility] 08/24/2022 03:00:06 influenza, unspecified formulation 5 completed Not Available [facility] 08/24/2022 03:00:06 influenza, unspecified formulation 7 completed Not Available [facility] 08/24/2022 03:00:06 Past Encounters Encounter ID Performer Location Encounter Start Date Encounter Closed Date Diagnosis/Indication Diagnosis SNOMED-CT Code Diagnosis ICD10 Code Diagnosis Note [id number] [facility] _ATHENA_M IGRATION_ DEFAULT_1 _1 , 09/22/2020 00:00:00 09/22/2020 09:55:33 [id number] [facility] _ATHENA_M IGRATION_ DEFAULT_1 _1 , 10/20/2020 00:00:00 10/20/2020 17:55:52 [id number] BRAYDEN Hill [facility] [place] [address] [place] [address] 11/02/2020 00:00:00 11/20/2020 01:32:32 [id number] BRAYDEN Hill [facility] [place] [address] [place] [address] 05/27/2021 00:00:00 06/22/2021 23:53:16 [id number] BRAYDEN Hill [facility] [place] [address] [place] [address] 10/20/2022 09:21:58 10/20/2022 10:07:40 Adult health examination 087454454 Z00.00 well exam completed. labs ordered Cholesterol screening 27 8116239 Z13.220 Diabetes m ellitus screening 235540176 Z13.1 Long-term drug therapy 258906553 Z79.899 Acute righ t otitis media 234147547 H66.91 rx for bactrim DS bid course since augmentin did not resolve infection after 10 day course from urgent care Body mass index 30+ - obesity 720694627 Z68.37 Health Concerns Section Related Observation LastModified by Organization Detai ls LastModified Time None Recorded Concern Status LastModified by Organization Details LastModified Time None Recorded Advance Directives Directive None Recorded Payers Insurance Date Sequence Insurance Name Policy Number Policy Simons Covered Member ID Simons Member ID Guarantor Name 02/20/2023 1 [employer] (PPO) [id number] James Hopkins [id number] Krishna Hopkins 10/20/2022 1 [employer] ([place] [id number] James Hopkins [id number] Krishna Hopkins OBGyn Episode No OBEpisode recorded.
== END 2025-01-21 16:59 | disposition home or self-care (01) ==
PROVIDERS: PCP Physician Assistant; Visit Provider Nurse Practitioner Adult Health
DX: R20.0 Anesthesia of skin (principal); R20.2 Paresthesia of skin
CPT/HCPCS: 72050

== ENCOUNTER 2025-03-05 12:07 | Outpatient (CLI) | payer OTHER, SELFPAY ==
--- OUTSIDE RECORDS SUMMARY | 2025-02-28 11:00 | XMS_ITS ---
Author Organization [facility] Address [address] [place] [address] Care Team Providers Care Playground Attendant Name Role Phone Daniela Cullen Primary Care Provider Luis Sanders Unavailable [phone] REASON FOR VISIT Follow Up Medications Medication [...] Female Encounters Encounter Location Date Provider Diagnosis [facility] [address] [place] [address] 02/28/2025 Luis Patel Plan Of Treatment No Information Progress Notes * KRISHNA ÁLVAREZ MDOB:1985 (39 yo F)Acc No.[id number]:02/28/2025 Patient: KRISHNA CAPONE Provider: PROMISE FERNANDES :1985 A ge:39 Y S ex:Female Date:02/28/2025 Address:[address] [place] [address], [facility] Pcp:Daniela OWEN Subjective: * Chief Complaints: * [...] * Electronic signature of PROMISE Edgar on 03/05/2025 at 12:59 PM CDT Sign off status: Pending * Provider: PROMISE FERNANDES Date: 0 02/28/2025 Generated for Maurisio muñiz/Junie/Rae on: 0 03/05/2025 12:59 PM CDT
--- NOTE | ~2025-03-05 | MM_ITS ---
EXAMINATION: MM screening bc BI w [employer] HISTORY: Screening TECHNIQUE: Craniocaudal and mediolateral oblique 3-D tomosynthesis images were obtained and synthetic 2-D images were generated. CAD analysis was submitted and interpreted. COMPARISON: 02/19/2024 BREAST PARENCHYMAL COMPOSITION: There are scattered areas of fibroglandular density. FINDINGS: There is no evidence of suspicious mass, calcification, or architectural distortion to suggest malignancy in either breast. IMPRESSION: 1. No mammographic evidence of malignancy. 2. Recommend routine screening mammography in one year. BI-RADS Category 1: Negative Reviewed, dictated and finalized at location B.
--- OUTSIDE RECORDS SUMMARY | 2025-03-05 12:59 | XMS_ITS | Clinical Summary ---
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
--- OUTSIDE RECORDS SUMMARY | 2025-03-05 12:59 | XMS_ITS | Clinical Summary ---
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
--- OUTSIDE RECORDS SUMMARY | 2025-03-05 12:59 | XMS_ITS | Patient Health Record ---
Author Organization [facility] [employer] Address [address] [facility] [place] [address] Care Team Providers Care Launch Manager Name Role Phone Daniela Cullen Primary Care Provider Luis Sanders Unavailable [phone] Leanne Kilpatrick Unavailable [phone] Letty Casas Unavailable [phone] Allergies No Known Allergies Results Component Value Reference Range Notes UDT Reviewed date:08/28/2024 06:06:01 PM Interpretation: Performing Lab: Notes/Report: THC NEG 0 - 50 ng/ml Cocaine NEG 0 - 300 ng/ml Amphetamine NEG 0 - 1000 ng/ml Buprenorphine (BUP) NEG 0 - 10 ng/ml Secobarbital (Bar) NEG 0 - 300 ng/ml Oxazepam (BZO) NEG 0 - 300 ng/ml 9-kmvuniqlxj-3,3-jjeaumky-9,3-diphenylpyrrolidine (VAIBHAV P) NEG 0 - 300 ng/ml Methamphetamine (MET) NEG 0 - 1000 ng/ml Methylenedioxymethamphetamine (MDMA) NEG 0 - 500 ng/ml Morphine (MOP 300/EHF1810) NEG 0 - 300 ng/ml Methadone (MTD) [...] 04/15/2019 Administered Source VFC Code: V00 - [facility] eligibility not determined/unknown MMR Unknown 07/28/2014 Administered Moderna Covid-19 Vaccine 1st dose Unknown 06/30/2020 Administered Moderna Covid-19 Vaccine 1st dose Unknown 07/28/2020 Administered Novel Olycdupdx-[id number], preservative free Unknown 03/21/2020 Administered Social History Tobacco Use: Social History Observation Description Date Details (start date - stop date) Never Smoker NA - NA Sex Assigned At : Social History Observation Description Sex Assigned At Female Social History Miscellaneous: Social Info Question Answer Notes Advance Care Planning Are you your own decision-maker Yes Do you have Power of Company [facility] or [facility]? No Drug/Alcohol: Social Info Question Answer Notes AUDIT-C (Standard) Points 3 Did you have a drink contain ing alcohol in the past year? Yes How often did you have six or more drinks on one occasion in the past year? Less than monthly (1 point) How many drinks did you have on a typical day when you were drinking in the past year? 3 or 4 drinks (1 point) How often did you have a drink containing alcohol in the past year? Monthly or less (1 point) Tobacco Use: Social Info Question Answer Notes Tobacco Control (Standard) Tobacco use: Nonsmoker Additional Details Category Social Info Options Details Migrated Social History Migrated Social History Alcohol Intake: Occasional 05/27/2021,Tobacco Years: Never smoker 06/08/2018,Smoking Status: 0 05/29/2023 Problems Problem Type SNOMED Code ICD Code Onset Dates Problem Status W/U Status Risk Notes Problem Mild recurrent major depression (07751158) Major depressive disorder, recurrent, mild (F33.0) Active confirmed Problem Generalized anxiety disorder (26509976) Generalized anxiety disorder (F41.1) Active confirmed Problem Primary insomnia (5135413) Primary insomnia (F51.01) Active confirmed Problem Attention deficit hyperactivity disorder, combined type (10488122) Attention-deficit hyperactivity disorder, combined type (F90.2) Active confirmed Problem Panic disorder (543165994) Panic disorder [episodic paroxysmal anxiety] without agoraphobia (F41.0) Active confirmed Vital Signs Heart Rate 90 /min 11/20/2024 Height-cm 161.29 cm 11/20/2024 Blood pressure diastolic 85 mm Hg 11/20/2024 Weight-kg 128.37 kg 11/20/2024 Height 63.50 in 11/20/2024 Blood pressure systolic 133 mm Hg 11/20/2024 Weight 283 lbs 11/20/2024 BMI 49.34 kg/m2 11/20/2024 Encounters Encounter Location Date Provider Diagnosis [facility] [address] [facility] [address] [address] 04/22/2024 Luis Patel Generalized anxiety disorder F41.1 ; Attention-deficit hyperactivity disorder, combined type F90.2 ; Major depressive disorder, recurrent, mild F33.0 ; Panic disorder [episodic paroxysmal anxiety] without agoraphobia F41.0 and Primary insomnia F51.01 [facility] [address] [address] 05/28/2024 Luis Patel Generalized anxiety disorder F41.1 ; Attention-deficit hyperactivity disorder, combined type F90.2 ; Major depressive disorder, recurrent, mild F33.0 ; Panic disorder [episodic paroxysmal anxiety] without agoraphobia F41.0 and Primary insomnia F51.01 [facility] [address] [place] [address] 08/28/2024 Luis Patel Generalized anxiety disorder F41.1 ; Attention-deficit hyperactivity disorder, combined type F90.2 ; Major depressive disorder, recurrent, mild F33.0 ; Panic disorder [episodic paroxysmal anxiety] without agoraphobia F41.0 and Primary insomnia F51.01 [facility] [address] [place] [address] 11/20/2024 Luis Patel Encounter for screen ing for cardiovascular disorders Z13.6 ; Negative depression screening Z13.31 ; Generalized anxiety disorder F41.1 ; Attention-deficit hyperactivity disorder, combined type F90.2 ; Major depressive disorder, recurrent, mild F33.0 ; Panic disorder [episodic paroxysmal anxiety] without agoraphobia F41.0 and Primary insomnia F51.01 [facility] [address] [place] [address] 01/13/2025 Letty Casas Primary insomnia F51 .01 [facility] [address] [place] [address] 02/20/2025 Luis Patel Primary insomnia F51 .01 ; Major depressive disorder, recurrent, mild F33.0 and Generalized anxiety disorder F41.1 [facility] [address] [place] [address] 02/13/2025 Luis Patel Primary insomnia F51 .01 and Attention-deficit hyperactivity disorder, combined type F90.2 [facility] [address] [place] [address] 02/28/2025 Luis Patel [facility], [facility] [address] [place] [address] 03/04/2025 Luis Patel [facility], [facility] [address] [place] [address] 03/08/2024 Luis Patel Attention-deficit hyperactivity disorder, combined type F90.2 [facility], [facility] [address] [place] [address] 03/11/2024 Luis Patel Attention-deficit hyperactivity disorder, combined type F90.2 [facility], [facility] [address] [place] [address] 03/30/2024 Luis Patel Attention-deficit hyperactivity disorder, combined type F90.2 [facility], [facility] [address] [place] [address] 04/01/2024 Luis Patel Attention-deficit hyperactivity disorder, combined type F90.2 [facility], [facility] [address] [place] [address] 04/01/2024 Luis Patel [facility], [facility] [address] [place] [address] 05/13/2024 Luis Patel [facility], [facility] [address] [place] [address] 07/03/2024 Luis Patel Attention-deficit hyperactivity disorder, combined type F90.2 [facility], [facility] [address] [place] [address] 07/04/2024 Leanne Finesse Attention-deficit hyperactivity disorder, combined type F90.2 [facility], [facility] [address] [place] [address] 08/08/2024 Luis Patel Attention-deficit hyperactivity disorder, combined type F90.2 [facility], [facility] [address] [place] [address] 09/16/2024 Letty Casas Attention-deficit hyperactivity disorder, combined type F90.2 [facility], [facility] [address] [place] [address] 10/24/2024 Luis Patel [facility], [facility] [address] [place] [address] 10/28/2024 Luis Patel Attention-deficit hyperactivity disorder, combined type F90.2 [facility], [facility] [address] [place] [address] 12/05/2024 Luis Patel Attention-deficit hyperactivity disorder, combined type F90.2 [facility], [facility] [address] [place] [address] 12/05/2024 Luis Patel [facility], [facility] [address] [place] [address] 01/12/2025 Letty Casas Attention-deficit hyperactivity disorder, combined type F90.2 and Primary insomnia F51.01 Assessments Encounter Date Diagnosis (ICD Code) Assessment Notes Treatment Notes Treatment Clinical Notes Section Notes 03/08/2024 Attention-defici t hyperactivity disorder, combined type [...] three months, to be picked up at [facility]. - Monitor patient's medication adherence and effectiveness during follow-up visits. 08/08/2024 Attention-defici t hyperactivity disorder, combined type (ICD-10 - F90.2) 08/28/2024 Generalized anxiety disorder (ICD-10 - F41.1) 10/28/2024 Attention-defici t hyperactivity disorder, combined type (ICD-10 - F90.2) 11/20/2024 Encounter for screening for cardiovascular disorders (ICD-10 - Z13.6) 12/05/2024 Attention-defici t hyperactivity disorder, combined type (ICD-10 - F90.2) 02/20/2025 Primary insomnia (ICD-10 - F51.01) 09/16/2024 Attention-defici t hyperactivity disorder, combined type (ICD-10 - F90.2) 07/04/2024 Attention-defici t hyperactivity disorder, combined type (ICD-10 - F90.2) 07/03/2024 Attention-defici t hyperactivity disorder, combined type (ICD-10 - F90.2) 01/12/2025 Attention-defici t hyperactivity disorder, combined type (ICD-10 - F90.2) 01/13/2025 Primary insomnia (ICD-10 - F51.01) 02/13/2025 Primary insomnia (ICD-10 - F51.01) 02/13/2025 Attention-defici t hyperactivity disorder, combined type (ICD-10 - F90.2) 02/20/2025 Major depressive disorder, recurrent, mild (ICD-10 - F33.0) 11/20/2024 Negative depression screening (ICD-10 - Z13.31) 01/12/2025 Primary insomnia (ICD-10 - F51.01) 08/28/2024 Attention-defici t hyperactivity disorder, combined type [...] three months, to be picked up at [facility]. - Monitor patient's medication adherence and [...] three months, to be picked up at [facility]. - Monitor patient's medication adherence and effectiveness during follow-up visits. 02/20/2025 Generalized anxiety disorder (ICD-10 - F41.1) 11/20/2024 Attention-defici t hyperactivity disorder, combined type [...] three months, to be picked up at [facility]. - Monitor patient's medication adherence and [...] three months, to be picked up at [facility]. - Monitor patient's medication adherence and [...] made to correct them. Plan Of Treatment No Information Insurance Providers Payer Name Payer Address Payer Phone Subscriber Number Group Number Insured Name Patient Relationship to Insured Coverage Start Date Coverage End Date [employer] Benef[employer] Plan Management [address] [place] [phone] [id number] BRIAN HOPKINS Spouse - patient is the [...] 09/05/2019 Ligation of bilateral fallopian tubes (2 [id number]) 09/05/2019 Endometrial ablation (45194) 2022
== END 2025-03-05 12:08 | disposition home or self-care (01) ==
PROVIDERS: PCP Physician Assistant; Visit Provider Obstetrics & Gynecology
DX: Z12.31 Encounter for screening mammogram for malignant neoplasm of breast (principal)
CPT/HCPCS: 77063; 77067

== ENCOUNTER 2025-03-28 08:27 | Outpatient (CLI) | payer OTHER, SELFPAY ==
--- OUTSIDE RECORDS SUMMARY | 2025-02-28 11:00 | XMS_ITS ---
Author Organization [facility] Address [address] [place] [address] Care Team Providers Care Straddle Buggy Operator Name Role Phone Daniela Cullen Primary Care Provider Luis Sanders Unavailable [phone] REASON FOR VISIT Follow Up Medications Medication [...] Female Encounters Encounter Location Date Provider Diagnosis [facility] [address] [place] [address] 02/28/2025 Luis Patel Plan Of Treatment Next Appt Details Provider Name:Luis Johnson a, 05/30/2025 04:45:00 PM, [address] [facility], [facility] [address], [place], [address], Progress Notes * KRISHNA ÁLVAREZ MDOB:1985 (39 yo F)Acc No.[id number]:02/28/2025 Patient: KRISHNA CAPONE Provider: PROMISE FERNANDES :1985 A ge:39 Y S ex:Female Date:02/28/2025 Address[facility] [address] Pcp:Daniela OWEN Subjective: * Chief Complaints: * [...] * Electronic signature of PROMISE Edgar on 03/28/2025 at 08:31 AM CDT Sign off status: Pending * Provider: PROMISE FERNANDES Date: 0 02/28/2025 Generated for Maurisio muñiz/Junie/Rae on: 1 08:31 AM CDT
--- OUTSIDE RECORDS SUMMARY | 2025-03-28 08:31 | XMS_ITS | Patient Health Record ---
Author Organization [facility] Address [address] [facility] [address] [place] [address] Care Team Providers Care Sheet Music Salesperson Name Role Phone Daniela Cullen Primary Care Provider Luis Sanders Unavailable [phone] Lenane Kilpatrick Unavailable [phone] Letty Casas Unavailable [phone] Allergies No Known Allergies Results Component Value Reference Range Notes UDT Reviewed date:08/28/2024 06:06:01 PM Interpretation: Performing Lab: Notes/Report: THC NEG 0 - 50 ng/ml Cocaine NEG 0 - 300 ng/ml Amphetamine NEG 0 - 1000 ng/ml Buprenorphine (BUP) NEG 0 - 10 ng/ml Secobarbital (Bar) NEG 0 - 300 ng/ml Oxazepam (BZO) NEG 0 - 300 ng/ml 1-oqqfpginme-5,8-pykqvsxs-2,3-diphenylpyrrolidine (VAIBHAV P) NEG 0 - 300 ng/ml Methamphetamine (MET) NEG 0 - 1000 ng/ml Methylenedioxymethamphetamine (MDMA) NEG 0 - 500 ng/ml Morphine (MOP 300/[id number]) NEG 0 - 300 ng/ml Methadone (MTD) NEG 0 - 300 ng/ml Phencyclidine (PCP) NEG 0 - 25 ng/ml Nortriptyline (TCA) NEG 0 - 1000 ng/ml Oxycodone NEG 0 - 300 ng/ml x NEG 0 - 300 ng/ml UDT Reviewed date:03/10/2025 12:22:29 PM Interpretation: Performing Lab: Notes/Report: THC n 0 - 50 ng/ml Cocaine n 0 - 300 ng/ml Amphetamine n 0 - 1000 ng/ml Buprenorphine (BUP) n 0 - 10 ng/ml Secobarbital (Bar) n 0 - 300 ng/ml Oxazepam (BZO) p 0 - 300 ng/ml 8-mgvkzkbfvh-4,2-bwwowlar-2,3-diphenylpyrrolidine (VAIBHAV P) n 0 - 300 ng/ml Methamphetamine (MET) n 0 - 1000 ng/ml Methylenedioxymethamphetamine (MDMA) n 0 - 500 ng/ml Morphine (MOP 300/[id number]) n 0 - 300 ng/ml Methadone (MTD) n 0 - 300 ng/ml Phencyclidine (PCP) n 0 - 25 ng/ml Nortriptyline (TCA) n 0 - 1000 ng/ml Oxycodone n 0 - 300 ng/ml Reason For Referral No Information Medications Medication SIG (Take, Route, Frequency, Duration) Notes Start Date End Date Status Zolpidem Tartrate 5 MG Tablet 1 tablet at bedtime as needed Oral Once a day; Duration: 30 days 03/19/2025 04/18/2025 Active Sertraline HCl 100 MG Tablet 1 tablet Oral Once a day; Duration: 90 days take with 50mg tablet - total dose 150mg 03/07/2025 Active valACYclovir HCl 1 GM Tablet Oral 08/28/2023 Active ProAir HFA 108 (90 Base) MCG/ACT Aerosol Solution Inhalation 08/28/2023 Act stan ALPRAZolam 0.25 MG Tablet 1 tablet Oral once a day; Duration: 30 days As needed 03/07/2025 Active Methylphenidate HCl ER 36 MG Tablet Extended Release 24 Hour 1 tablet every morning Oral once a day; Duration: 30 days 03/17/2025 Active Sertraline HCl 50 MG Tablet 1 tablet Orally Once a day; Duration: 90 days take with 100mg tablet- total dose 150mg 03/07/2025 Active traZODone HCl 100 MG Tablet 1 tablet Oral Once a day; Duration: 90 days As needed 03/07/2025 Active Immunizations Vaccine Route Administration Date Status [...] Vaccine 1st dose Unknown 07/28/2020 Administered Novel [id number], preservative free Unknown 03/21/2020 Administered Social History Tobacco Use: Social History Observation Description Date Details (start date - stop date) Never Smoker NA - NA Sex Assigned At : Social History Observation Description Sex Assigned At Female Social History Miscellaneous: Social Info Question Answer Notes Advance Care Planning Are you your own decision-maker Yes Do you have Power of Senior Manager [employer] Assurance for Health or [facility]? No Drug/Alcohol: Social Info Question Answer Notes [...] Risk Notes Problem Mild recurrent major depression (69166822) Major depressive disorder, recurrent, mild (F33.0) Active confirmed Problem Generalized anxiety disorder (04366786) Generalized anxiety disorder (F41.1) Active confirmed Problem Primary insomnia (9912567) Primary insomnia (F51.01) Active confirmed Problem Attention deficit hyperactivity disorder, combined type (01040053) Attention-deficit hyperactivity disorder, combined type (F90.2) Active confirmed Problem Panic disorder (683809475) Panic disorder [episodic paroxysmal anxiety] without agoraphobia (F41.0) Active confirmed Vital Signs Heart Rate 98 /min 03/07/2025 129/86 Height-cm 161.29 cm 03/07/2025 129/86 Blood pressure diastolic 86 mm Hg 03/07/2025 129 /86 Weight-kg 124.74 kg 03/07/2025 129/86 Height 63.50 in 03/07/2025 129/86 Blood pressure systolic 129 mm Hg 03/07/2025 129/ 86 Weight 275 lbs 03/07/2025 129/86 BMI 47.94 kg/m2 03/07/2025 129/86 Encounters Encounter Location Date Provider Diagnosis [facility] [address] [address] 04/22/2024 Luis Aptel Generalized anxiety disorder F41.1 ; Attention-deficit hyperactivity disorder, combined type F90.2 ; Major depressive disorder, recurrent, mild F33.0 ; Panic disorder [episodic paroxysmal anxiety] without agoraphobia F41.0 and Primary insomnia F51.01 [facility] [address] [address] 05/28/2024 Luis Patel Generalized anxiety disorder F41.1 ; Attention-deficit hyperactivity disorder, combined type F90.2 ; Major depressive disorder, recurrent, mild F33.0 ; Panic disorder [episodic paroxysmal anxiety] without agoraphobia F41.0 and Primary insomnia F51.01 [facility] [address] [address] 08/28/2024 Luis Patel Generalized anxiety disorder F41.1 ; Attention-deficit hyperactivity disorder, combined type F90.2 ; Major depressive disorder, recurrent, mild F33.0 ; Panic disorder [episodic paroxysmal anxiety] without agoraphobia F41.0 and Primary insomnia F51.01 [facility] [address] [address] 11/20/2024 Luis Patel Encounter for screen ing for cardiovascular disorders Z13.6 ; Negative depression screening Z13.31 ; Generalized anxiety disorder F41.1 ; Attention-deficit hyperactivity disorder, combined type F90.2 ; Major depressive disorder, recurrent, mild F33.0 ; Panic disorder [episodic paroxysmal anxiety] without agoraphobia F41.0 and Primary insomnia F51.01 [facility] [place] [id number] [facility] [address] [address] 03/07/2025 Luis Patel Generalized anxiety disorder F41.1 ; Attention-deficit hyperactivity disorder, combined type F90.2 ; Major depressive disorder, recurrent, mild F33.0 ; Panic disorder [episodic paroxysmal anxiety] without agoraphobia F41.0 and Primary insomnia F51.01 [facility] [address] [place] [address] 01/13/2025 Letty Casas Primary insomnia F51 .01 [facility] [address] [place] [address] 02/20/2025 Luis Patel Primary insomnia F51 .01 ; Major depressive disorder, recurrent, mild F33.0 and Generalized anxiety disorder F41.1 [facility] [address] [place] [address] 03/30/2024 Luis Patel Attention-deficit hyperactivity disorder, combined type F90.2 [facility] [address] [place] [address] 04/01/2024 Luis Patel Attention-deficit hyperactivity disorder, combined type F90.2 [facility] [address] [place] [address] 04/01/2024 Luis Patel [facility] [address] [place] [address] 05/13/2024 Luis Patel [facility] [address] [place] [address] 07/03/2024 Luis Patel Attention-deficit hyperactivity disorder, combined type F90.2 [facility] [address] [place] [address] 07/04/2024 Leanne Kilpatrick Attention-deficit hyperactivity disorder, combined type F90.2 [facility] [address] [place] [address] 08/08/2024 Luis Patel Attention-deficit hyperactivity disorder, combined type F90.2 [facility] [address] [place] [address] 09/16/2024 Letty Casas Attention-deficit hyperactivity disorder, combined type F90.2 [facility] [address] [place] [address] 10/24/2024 Luis Patel [facility] [address] [place] [address] 10/28/2024 Luis Patel Attention-deficit hyperactivity disorder, combined type F90.2 [facility] [address] [place] [address] 12/05/2024 Luis Patel Attention-deficit hyperactivity disorder, combined type F90.2 [facility] [address] [place] [address] 12/05/2024 Luis Patel [facility] [address] [place] [address] 01/12/2025 Letty Casas Attention-deficit hyperactivity disorder, combined type F90.2 and Primary insomnia F51.01 [facility] [address] [place] [address] 02/13/2025 Luis Patel Primary insomnia F51 .01 and Attention-deficit hyperactivity disorder, combined type F90.2 [facility] [address] [place] [address] 02/28/2025 Luis Patel [facility] [address] [place] [address] 03/04/2025 Luis Patel [facility] [address] [place] [address] 03/17/2025 Luis Patel Attention-deficit hyperactivity disorder, combined type F90.2 [facility] [address] [place] [address] 03/18/2025 Luis Patel Primary insomnia F51 .01 Assessments Encounter Date Diagnosis (ICD Code) Assessment Notes Treatment Notes Treatment Clinical Notes Section Notes 07/04/2024 Attention-defici t hyperactivity disorder, combined type [...] and maintain a consistent sleep schedule. 5. Irritability/PMS : - Patient reports a decrease in irritability, especially around her period. - She is now able to take a moment before reacting impulsively. Plan: - Continue monitoring irritability and PMS symptoms during follow-up visits. - Encourage the patient to practice stress management techniques. - Consider discussing non-pharmacologi magalis interventions for PMS if needed. 6. Medication refills: - Patient needs a refill for methylphenidate (Concerta) 36 mg daily. Plan: - Refill Concerta 36 mg daily for three months, to be picked up at [facility]. - Monitor patient's medication adherence and [...] F51.01) 02/13/2025 Primary insomnia (ICD-10 - F51.01) 02/20/2025 Primary insomnia (ICD-10 - F51.01) 03/07/2025 Generalized anxiety disorder (ICD-10 - F41.1) 03/17/2025 Attention-defici t hyperactivity disorder, combined type (ICD-10 - F90.2) 03/18/2025 Primary insomnia (ICD-10 - F51.01) 11/20/2024 Encounter for screening for cardiovascular disorders (ICD-10 - Z13.6) 11/20/2024 Negative depression screening (ICD-10 - Z13.31) 03/07/2025 Attention-defici t hyperactivity disorder, combined type (ICD-10 - F90.2) 08/28/2024 Attention-defici t hyperactivity disorder, combined type (ICD-10 - F90.2) 02/13/2025 Attention-defici t hyperactivity disorder, combined type (ICD-10 - F90.2) 02/20/2025 Major depressive disorder, recurrent, mild (ICD-10 - F33.0) 01/12/2025 Primary insomnia (ICD-10 - F51.01) 05/28/2024 [...] and maintain a consistent sleep schedule. 5. Irritability/PMS : - Patient reports a decrease in irritability, especially around her period. - She is now able to take a moment before reacting impulsively. Plan: - Continue monitoring irritability and PMS symptoms during follow-up visits. - Encourage the patient to practice stress management techniques. - Consider discussing non-pharmacologi magalis interventions for PMS if needed. 6. Medication refills: - Patient needs a refill for methylphenidate (Concerta) 36 mg daily. Plan: - Refill Concerta 36 mg daily for three months, to be picked up at [facility]. - Monitor patient's medication adherence and [...] depressive disorder, recurrent, mild (ICD-10 - F33.0) 02/20/2025 Generalized anxiety disorder (ICD-10 - F41.1) 03/07/2025 Major depressive disorder, recurrent, mild (ICD-10 - [...] and maintain a consistent sleep schedule. 5. Irritability/PMS : - Patient reports a decrease in irritability, especially around her period. - She is now able to take a moment before reacting impulsively. Plan: - Continue monitoring irritability and PMS symptoms during follow-up visits. - Encourage the patient to practice stress management techniques. - Consider discussing non-pharmacologi magalis interventions for PMS if needed. 6. Medication refills: - Patient needs a refill for methylphenidate (Concerta) 36 mg daily. Plan: - Refill Concerta 36 mg daily for three months, to be picked up at [facility]. - Monitor patient's medication adherence and effectiveness during follow-up visits. 11/20/2024 Attention-defici t hyperactivity disorder, combined type (ICD-10 - F90.2) 03/07/2025 Panic disorder [episodic paroxysmal anxiety] without agoraphobia (ICD-10 - F41.0) 08/28/2024 Panic disorder [episodic paroxysmal anxiety] without [...] and maintain a consistent sleep schedule. 5. Irritability/PMS : - Patient reports a decrease in irritability, especially around her period. - She is now able to take a moment before reacting impulsively. Plan: - Continue monitoring irritability and PMS symptoms during follow-up visits. - Encourage the patient to practice stress management techniques. - Consider discussing non-pharmacologi magalis interventions for PMS if needed. 6. Medication refills: - Patient needs a refill for methylphenidate (Concerta) 36 mg daily. Plan: - Refill Concerta 36 mg daily for three months, to be picked up at [facility]. - Monitor patient's medication adherence and [...] and maintain a consistent sleep schedule. 5. Irritability/PMS : - Patient reports a decrease in irritability, especially around her period. - She is now able to take a moment before reacting impulsively. Plan: - Continue monitoring irritability and PMS symptoms during follow-up visits. - Encourage the patient to practice stress management techniques. - Consider discussing non-pharmacologi magalis interventions for PMS if needed. 6. Medication refills: - Patient needs a refill for methylphenidate (Concerta) 36 mg daily. Plan: - Refill Concerta 36 mg daily for three months, to be picked up at [facility]. - Monitor patient's medication adherence and [...] appointments. 08/28/2024 Primary insomnia (ICD-10 - F51.01) 03/07/2025 Primary insomnia (ICD-10 - F51.01) 11/20/2024 Major depressive disorder, recurrent, mild (ICD-10 - F33.0) 11/20/2024 Panic disorder [episodic paroxysmal anxiety] without [...] efforts have been made to correct them. 03/07/2025 Luis Manuel Hopkins presents with adjustment disorder with mixed anxiety and depressed mood related to societal stressors, and interpersonal relationship strain due to political differences, seeking continued psychiatric care and therapy support. 1. Adjustment Disorder with Mixed Anxiety and Depressed Mood - Patient reports feeling angry, sad, and losing jose enrique in humanity due to current societal and political issues. Expresses difficulty coping with constant anxiety and stress related to these concerns. Acknowledges awareness of need to work on not letting external factors affect mental state given history of mental health issues. Plan: - Continue current psychiatric medications: sertraline, methylphenidat e, zolpidem - Encouraged patient to attend scheduled therapy appointment with Letty Glass at [facility] in [place] - Advised patient to continue hosting [employer] to foster sense of community - Recommended developing coping strategies to manage anxiety and stress related to societal issues - Encouraged patient to maintain social connections with like-minded individuals for support 2. Interpersonal Relationship Strain - Patient reports ending communication with older sister due to conflicting political views and inability to maintain respectful interactions. Decision appears to be source of stress but perceived as necessary for mental well-being. Expresses difficulty maintaining relationships with individuals who hold opposing political views. Plan: - Explore healthy boundary-setti ng techniques in therapy - Discuss strategies for managing difficult conversations about political differences in future therapy sessions - Encourage patient to focus on shared values and experiences in relationships when possible 3. Follow-up and Monitoring Plan: - Follow-up appointment in 3 months - Monitor response to current medication regimen - Reassess coping strategies and therapeutic progress the note is transcribed using speech recognition software. It is a reflection of a visit with the patient. It might have some inaccuracy, including medication names and transcribing errors, though efforts have been made to correct them. Plan Of Treatment Next Appt Details Provider Name:Luis pitt, 05/30/2025 04:45:00 PM, [address], [facility] [address], [place], [address], Insurance Providers Payer Name Payer Address Payer Phone Subscriber Number Group Number Insured Name Patient Relationship to Insured Coverage Start Date Coverage End Date [employer] Benefit Plan Management [address] [facility] [place] [address] [id number] BRIAN HOPKINS Spouse - patient is the [...] 09/05/2019 Ligation of bilateral fallopian tubes ([id number]) 09/05/2019 Endometrial ablation (60742) 2022
--- OUTSIDE RECORDS SUMMARY | 2025-03-28 08:32 | XMS_ITS | Data Portability ---
Author Organization [place] [facility], Main Office Address [address] [place] [address] Assessment No assessment recorded. Plan of Treatment Reminders Order Date Submit Date Provider Last Modified By Organization Details Last Modified Time Details Appointments None recorded. Lab lipid panel, serum 023 023 Fix[facility], [address], [address], 3 13:28:45 CMP, serum or plasma 023 023 [facility], [address], [address], 3 13:28:46 CBC w/ auto diff 023 023 [facility], [address], [address], 3 13:28:48 TSH + free T4, serum 023 023 [facility], [address], [address], 3 13:28:44 HbA1c (hemoglob in A1c), blood 023 023 [facility], [address], [address], 3 13:28:47 insulin, serum 023 023 [facility], [address] [facility] [address], [place], [address], 13:28:49 Referral None recorded. Procedures None recorded. Surgeries None recorded. Imaging None recorded. Medication Orders Bactrim DS 800 mg-160 mg tablet 023 023 [id number], [address] [facility], [place], [place], [id number], 10:05:36 Patient TargetsNo targets recorded. Patient InstructionsNo [...] Third trime ster 0.43- 2.91 Not Available [facility] [address], [address], 10/27/2022 13:28:44 10/27/19 23 10/27/2022 TSH+F REE T4 T4, free 0.8 NG/dL 0.8-1. 8 normal Not Available [facility] [address] [place], [address], 10/27/2022 13:28:44 10/27/19 23 10/27/2022 LIPID PANEL WITH RATIO S cholesterol, total 200 mg/dL <200 high Not Available [facility] [address], [address], 10/27/2022 13:28:45 10/27/19 23 10/27/2022 LIPID PANEL WITH RATIO S HDL cholesterol 73 mg/dL > or = 50 normal Not Available [facility] [address], [address], 10/27/2022 13:28:45 10/27/19 23 10/27/2022 LIPID PANEL WITH RATIO S triglyceride s 71 mg/dL <150 normal Not Available [address], [address], 10/27/2022 13:28:45 10/27/19 23 10/27/2022 LIPID PANEL [...] 9): 2061- 2068 (http ://ed ucati on.Qu estC2 [employer]rapeutics. com/f aq/FA Q164) Not Available [address], [address], 10/27/2022 13:28:45 10/27/19 23 10/27/2022 LIPID PANEL WITH RATIO S chol/HDLC ratio 2.7 (calc ) <5.0 normal Not Available [address], [address], 10/27/2022 13:28:45 10/27/19 23 10/27/2022 LIPID PANEL WITH RATIO S LDL/HDL ratio 1.5 (calc ) Below avera ge Risk: <2.34 [place] Risk: 2.35- 4.12 Moder ate Risk: 4.13- 5.56 High Risk: >5.57 Not Available [address], [address], 10/27/2022 13:28:45 10/27/19 23 10/27/2022 LIPID PANEL WITH RATIO S non HDL cholesterol 127 mg/dL _(magalis c) <130 normal For patie nts with diabe darline plus 1 major ASCVD risk facto r, treat ing to a non-H DL-C goal of <100 mg/dL (LDL- C of <70 mg/dL ) is consi dered a thera peuti c optio n. Not Available [address] [address] [place], [address], 10/27/2022 13:28:45 10/27/19 23 10/27/2022 COMPR EHENS ZABRINA METAB OLIC PANEL glucose 86 mg/dL 65-99 normal Fasti ng refer ence inter han Not Available [address] [address] [place], [address], 10/27/2022 13:28:46 10/27/19 23 10/27/2022 COMPR EHENS ZABRINA METAB OLIC PANEL urea nitrogen (BUN) 12 mg/dL 7-25 normal Not Available [facility] [address] [address] [place], [address], 10/27/2022 13:28:46 10/27/19 23 10/27/2022 COMPR EHENS ZABRINA METAB OLIC PANEL creatinine 0.70 mg/dL 0.50-0 .97 normal Not Available [address] [address] [place], [address], 10/27/2022 13:28:46 10/27/19 23 10/27/2022 COMPR EHENS ZABRINA METAB OLIC PANEL eGFR 113 mL/mi n/1.7 3m2 > or = 60 normal The eGFR is based on the CKD-E PI 2020 sheritaat heike. To calcu late the new eGFR from a previ ous Creat inine or Cysta tin C resul t, go to https ://kisha cruz.deja villeda/bean butt s/ kdoqi /gfr% 5Fcal culat or Not Available [facility] [address], [address], 10/27/2022 13:28:46 10/27/19 23 10/27/2022 COMPR EHENS ZABRINA METAB OLIC PANEL BUN/creatini ne ratio NOT APPLIC ABLE (calc ) 6-22 Not Available [address], [address], 10/27/2022 13:28:46 10/27/19 23 10/27/2022 COMPR EHENS ZABRINA METAB OLIC PANEL sodium 137 mmol/ L 135-14 6 normal Not Available [address], [address], 10/27/2022 13:28:46 10/27/19 23 10/27/2022 COMPR EHENS ZABRINA METAB OLIC PANEL potassium 3.9 mmol/ L 3.5-5. 3 normal Not Available [address], [address], 10/27/2022 13:28:46 10/27/19 23 10/27/2022 COMPR EHENS ZABRINA METAB OLIC PANEL chloride 104 mmol/ L 98-110 normal Not Available [address], [address], 10/27/2022 13:28:46 10/27/19 23 10/27/2022 COMPR EHENS ZABRINA METAB OLIC PANEL carbon dioxide 26 mmol/ L 20-32 normal Not Available [address], [address], 10/27/2022 13:28:46 10/27/19 23 10/27/2022 COMPR EHENS ZABRINA METAB OLIC PANEL calcium 9.2 mg/dL 8.6-10 .2 normal Not Available [address], [address], 10/27/2022 13:28:46 10/27/19 23 10/27/2022 COMPR EHENS ZABRINA METAB OLIC PANEL protein, total 7.1 g/dL 6.1-8. 1 normal Not Available [address], [address], 10/27/2022 13:28:46 10/27/19 23 10/27/2022 COMPR EHENS ZABRINA METAB OLIC PANEL albumin 4.3 g/dL 3.6-5. 1 normal Not Available [address], [address], 10/27/2022 13:28:46 10/27/19 23 10/27/2022 COMPR EHENS ZABRINA METAB OLIC PANEL globulin 2.8 g/dL_ (calc ) 1.9-3. 7 normal Not Available [address], [address], 10/27/2022 13:28:46 10/27/19 23 10/27/2022 COMPR EHENS ZABRINA METAB OLIC PANEL albumin/glob ulin ratio 1.5 (calc ) 1.0-2. 5 normal Not Available [address], [address], 10/27/2022 13:28:46 10/27/19 23 10/27/2022 COMPR EHENS ZABRINA METAB OLIC PANEL bilirubin, total 0.9 mg/dL 0.2-1. 2 normal Not Available [address], [address], 10/27/2022 13:28:46 10/27/19 23 10/27/2022 COMPR EHENS ZABRINA METAB OLIC PANEL alkaline phosphatase 64 U/L 31-125 normal Not Available [facility] [address], [address], 10/27/2022 13:28:46 10/27/19 23 10/27/2022 COMPR EHENS ZABRINA METAB OLIC PANEL AST 18 U/L 10-30 normal Not Available [address] [place], [address], 10/27/2022 13:28:46 10/27/19 23 10/27/2022 COMPR EHENS ZABRINA METAB OLIC PANEL ALT 17 U/L 6-29 normal Not Available [facility] [address] [address] [place], [address], 10/27/2022 13:28:46 10/27/19 23 10/27/2022 HEMOG LOBIN [...] Care in Diabe darline(A DA). Not Available [facility] [address] [address] [place], [address], 10/27/2022 13:28:47 10/27/19 23 10/27/2022 CBC (INCL UDES DIFF/ PLT) white blood cell count 9.3 thous and/u L 3.8-10 .8 normal Not Available [facility] [address] [place], [address], 10/27/2022 13:28:48 10/27/19 23 10/27/2022 CBC (INCL UDES DIFF/ PLT) red blood cell count 4.49 bela on/uL 3.80-5 .10 normal Not Available [address], [address], 10/27/2022 13:28:48 10/27/19 23 10/27/2022 CBC (INCL UDES DIFF/ PLT) hemoglobin 13.5 g/dL 11.7-1 5.5 normal Not Available [address], [address], 10/27/2022 13:28:48 10/27/1910/27/2022 CBC (INCL UDES DIFF/ PLT) hematocrit 40.4 % 35.0-4 5.0 normal Not Available [address], [address], 10/27/2022 13:28:48 10/27/19 23 10/27/2022 CBC (INCL UDES DIFF/ PLT) MCV 90.0 fL 80.0-1 00.0 normal Not Available [address], [address], 10/27/2022 13:28:48 10/27/1910/27/2022 CBC (INCL UDES DIFF/ PLT) MCH 30.1 pg 27.0-3 3.0 normal Not Available [address], [address], 10/27/2022 13:28:48 10/27/19 23 10/27/2022 CBC (INCL UDES DIFF/ PLT) MCHC 33.4 g/dL 32.0-3 6.0 normal Not Available [address], [address], 10/27/2022 13:28:48 10/27/19 23 10/27/2022 CBC (INCL UDES DIFF/ PLT) RDW 13.5 % 11.0-1 5.0 normal Not Available [address], [address], 10/27/2022 13:28:48 10/27/19 23 10/27/2022 CBC (INCL UDES DIFF/ PLT) platelet count 281 thous and/u L 140-40 0 normal Not Available [address], [address], 10/27/2022 13:28:48 10/27/19 23 10/27/2022 CBC (INCL UDES DIFF/ PLT) MPV 9.3 fL 7.5-12 .5 normal Not Available [address], [address], 10/27/2022 13:28:48 10/27/19 23 10/27/2022 CBC (INCL UDES DIFF/ PLT) absolute neutrophils 5552 cells /uL 1500-7 800 normal Not Available [address], [address], 10/27/2022 13:28:48 10/27/19 23 10/27/2022 CBC (INCL UDES DIFF/ PLT) absolute lymphocytes 3162 cells /uL 850-39 00 normal Not Available [address], [address], 10/27/2022 13:28:48 10/27/19 23 10/27/2022 CBC (INCL UDES DIFF/ PLT) absolute monocytes 512 cells /uL 200-95 0 normal Not Available [address], [address], 10/27/2022 13:28:48 10/27/19 23 10/27/2022 CBC (INCL UDES DIFF/ PLT) absolute eosinophils 28 cells /uL 15-500 normal Not Available [address], [address], 10/27/2022 13:28:48 10/27/19 23 10/27/2022 CBC (INCL UDES DIFF/ PLT) absolute basophils 47 cells /uL 0-200 normal Not Available [address], [address], 10/27/2022 13:28:48 10/27/19 23 10/27/2022 CBC (INCL UDES DIFF/ PLT) neutrophils 59.7 % normal Not Available [address], [address], 10/27/2022 13:28:48 10/27/19 23 10/27/2022 CBC (INCL UDES DIFF/ PLT) lymphocytes 34.0 % normal Not Available [address], [address], 10/27/2022 13:28:48 10/27/19 23 10/27/2022 CBC (INCL UDES DIFF/ PLT) monocytes 5.5 % normal Not Available [address], [address], 10/27/2022 13:28:48 10/27/19 23 10/27/2022 CBC (INCL UDES DIFF/ PLT) eosinophils 0.3 % normal Not Available [address], [address], 10/27/2022 13:28:48 10/27/19 23 10/27/2022 CBC (INCL UDES DIFF/ PLT) basophils 0.5 % normal Not Available [facility] [address], [address], 10/27/2022 13:28:48 10/27/19 23 10/27/2022 INSUL IN insulin 13.5 uIU/m L normal Refer ence Range < or = 18.4 Risk: Optim al < or = 18.4 Moder ate NA High >18.4 Adult cardi ovasc ular event risk categ ory cut point s (opti mal, moder ate, high) are based on Insul in Refer ence Inter han studi es perfo rmed at [facility] in 2021. Not Available [facility] [address] [address], [place], [address], 10/27/2022 13:28:48 10/03/19 21 10/02/2020 US, pelvi s, trans abdom inal + trans vagin al No observ ation record ed. [id number] [facility] [address] [place], [address], 08/24/2022 03:00:42 10/03/19 21 10/02/2020 US, obste tric, trans vagin al No observ ation record ed. [id number] [facility] [address] [place], [address], 08/24/2022 03:00:42 10/03/19 21 10/02/2020 US, trans vagin al [facility] [address] [place] [address] Patien t Name: KRISHNA HOPKINS Access ion #: [id number] Sex: F : 1984 2 Locati [...] to each ovary. Page 1 of 2 [facility] mayito Name: KRISHNA HOPKINS ion #: [id number] Sex: F : 1984 2 Exam [...] DO (CT) (CT) Page 2 of 2 [id number] [facility] (Imaging) [address] [place], [address], 08/24/2022 03:00:42 Result Notes None recorded. Problems Name Problem SNOMED Code Status Onset Date Resolution Date Notes Provider Name and Address Organization Details Recorded Time Past history of miscarriag e 497533146 Active Not Available [facility] 3 02:53:22 Mood swings 11630752 Active Not Available [facility] 3 02:53:22 Bruxism 511678341 Active Not Available [facility] 3 02:53:22 Insomnia 121475252 Active Not Available [facility] 3 02:53:22 Asthma 559803940 Active Not Available [facility] 3 02:53:22 Benign essential hypertensi on complicati ng , childbirth and the puerperium - not delivered 983148240 Completed Not Available [facility] 3 02:53:22 Mixed anxiety and depressive disorder 123636848 Active RADHA Portillo null, [place] [facility] [place] [facility] 3 11:50:38 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- plan eval pp per PCP Not Available [facility] 3 02:53:22 Vaginal odor 711749651 Active Not Available [facility] 3 02:53:22 Hyperemesi s 521410104 Completed Not Available [facility] 3 02:53:22 Anxiety 58615414 Active RADHA Portillo null, [facility] 3 11:50:53 Dyspareuni a 20995610 Active Not Available [facility] 3 02:53:22 Acute sinusitis 99688356 Active 2021 Not Available [facility] 3 02:53:22 Acute right otitis media 243447944 Active 2022 BRAYDEN Hill [address] [facility] [address], [place], [address] , [facility] 3 10:03:29 Problem Notes None recorded. Procedures Surgical History Date Name Laterality Status Provider Name and Address Organization Details Recorded Time 2 dilation and curettage completed RADHA Portillo [facility] 10/20/2022 09:31:37 0 TECHNOLOGY SUPPORT ANALYST Surgery completed Not Available [facility] 08/25/19 02:47:42 0 Date of Last Pap Smear completed Not Available [facility] 08/24/2022 02:47:39 TECHNOLOGY SUPPORT ANALYST Surgery completed Not Available [facility] 08/24/2022 02:47:42 Imaging Results None recorded. Procedure [...] enidate ER 10 mg capsule,ext ended release - 50 active Not Available Not Available Not [...] Not Available No t Available Se-Manuel 19 (with docusate) 29 mg iron-1 mg-25 [...] Not Available Not Available Not Available Fluvirin 5006-4609(P F) 45 mcg (15 mcg x3)/0.5 mL intramuscul ar syringe active Not Available Not Available N ot Available albuterol sulfate 90 mcg/actuati on breath activated powder inhaler Inhale 2 puffs every 4 hours by inhalatio n route as needed. 02/28 completed Not Available Not Available Not Available Fluzone Quad 0012-9495 60 mcg (15 mcg x 4)/0.5 mL IM suspension 12/28 completed Not Available Not Available Not Available Fluz[facility] Quad 7084-8996 60 mcg (15 mcg x 4)/0.5 mL [...] 09/22/2020 45.7 kg/m2 160.02 cm 98.3 [degF] 869298. 83 g 122/74 mm[Hg] Not Available [facility] 3 02:50:39 Date Recorded Body mass index (BMI) Body height Body temperature Body weight Systolic And Diastolic Provider Name and Address Organization Details Last Updated DateTime 10/20/2020 46.4 kg/m2 160.02 cm 97.3 [degF] 753183. 2 g 126/78 mm[Hg] Not Available [facility] 3 02:50:39 Date Recorded Body height Body temperature Body mass index (BMI) Body weight Respiratory rate Oxygen saturation Oxygen saturation in Arterial blood by Pulse oximetry Heart rate Systolic And Diastolic Provider Name and Address Organization Details Last Updated DateTime 3 160.02 cm 98 [degF] 37.4 kg/m2 19360.9 9 g 16 /min 98 % 98 % 78 /min 128/80 mm[Hg] RADHA Portillo [facility] [employer] [facility] 3 09:33:06 Date Recorded Body mass index (BMI) Body height Oxygen saturation Oxygen saturation in Arterial blood by Pulse oximetry Heart rate Respiratory rate Body temperature Body weight Systolic And Diastolic Provider Name and Address Organization Details Last Updated DateTime 1 46.5 kg/m2 160.02 cm 96 % 96 % 89 /min 16 /min 98 [degF] 792685. 64 g 128/82 mm[Hg] Not Available [facility] 3 02:50:39 Date Recorded Body mass index (BMI) Body height Oxygen saturation Oxygen saturation in Arterial blood by Pulse oximetry Heart rate Body temperature Body weight Systolic And Diastolic Provider Name and Address Organization Details Last Updated DateTime 1 46.6 kg/m2 160.02 cm 98 % 98 % 80 /min 98 [degF] 846949. 87 g 120/80 mm[Hg] Not Available [facility] 3 02:50:39 Social History Question Answer Notes LastModified by Organizat ion Details LastModified Time Tobacco Smoking Status Never Smoker KIKA Lindsay, [facility] 10/20/2022 09:26:28 What Is Your Level Of Caffeine Consumption? Moderate [id number] Information not available 08/24/2022 How Much Tobacco Do You Chew? None [id number] Information not available 08/24/2022 In The 14 [...] Type Of Diet Are You Following? REGULAR [id number] Information not available 08/24/2022 Which Illicit Or [...] How Much Tobacco Do You Smoke? No [id number] Information not available 08/24/2022 Do You Use Sunscreen Routinely? Yes Information not available 10/20/2022 Have You Recently Traveled Abroad? No Information not available 10/20/2022 Do You Have Any Dietary Restrictions? No Information not available 10/20/2022 Sex: Unknown Functional Status Question Answer Note LastModified by OrganZeis Excels[employer]at ion Details LastModified Time Do you use any illicit or recreational drugs? No Information not available 10/20/2022 Do you or have you ever used any other forms of tobacco or nicotine? No Information not available 10/20/2022 What is your level of alcohol consumption? Occasional [id number] Information not available 08/24/2022 Do you or have you ever used smokeless tobacco? Never used smokeless tobacco [id number] Information not available 08/24/2022 Are you currently employed? 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 Never used electronic cigarettes Information not available 10/20/2022 What is your exercise level? Occasional [id number] Information not available 08/24/2022 Mental Status None recorded. Family History Relationship Description Onset Age of this Age Resolved Age Notes LastModified by Organization Details LastModified Time Father Carcinoma of prostate Not available 2022 09:26:28 Unspecified Relation Hypertensive disorder [id number] Not available 08/24/2022 02:47:46 Unspecified Relation Myocardial infarction [id number] Not available 08/24/2022 02:47:46 Mother Malignant neoplasm of skin Not available 10/20 09:33:50 Notes:no new Medical [...] 50 mcg/0.25mL dose 1 completed Not Available [facility] 08/24/2022 03:00:05 COVID-19, mRNA, LNP-S, PF, 100 mcg/0.5mL dose or 50 mcg/0.25mL dose 1 completed Not Available [facility] 08/24/2022 03:00:06 influenza, unspecified formulation 0 completed Not Available [facility] 08/24/2022 03:00:06 influenza, unspecified formulation 5 completed Not Available [facility] 08/24/2022 03:00:06 influenza, unspecified formulation 7 completed Not Available [facility] 08/24/2022 03:00:06 Past Encounters Encounter ID Performer Location Encounter Start Date Encounter Closed Date Diagnosis/Indication Diagnosis SNOMED-CT Code Diagnosis ICD10 Code Diagnosis IMO Codes Diagnosis Note [id number] [facility] _ATHENA_M IGRATION_ DEFAULT_1 _1 , 09/22/2020 00:00:00 09/22/2020 09:55:33 [id number] [facility] _ATHENA_M IGRATION_ DEFAULT_1 _1 , 10/20/2020 00:00:00 10/20/2020 17:55:52 [id number] BRAYDEN Hill [facility] [place] [address] [place] [address] 11/02/2020 00:00:00 11/20/2020 01:32:32 [id number] BRAYDEN Hill [facility] [place] [address] [place] [address] 05/27/2021 00:00:00 06/22/2021 23:53:16 [id number] BRAYDEN Hill [facility] [place] [address] [place] [address] 10/20/2022 09:21:58 10/20/2022 10:07:40 Adult health examination 263712751 Z00.00 well exam completed. labs ordered Cholesterol screening 27 6789073 Z13.220 Diabetes m ellitus screening 982820943 Z13.1 Long-term drug therapy 041582192 Z79.899 Acute righ t otitis media 557618922 H66.91 rx for bactrim DS bid course since augmentin did not resolve infection after 10 day course from urgent care Body mass index 30+ - obesity 408860400 Z68.37 Health Concerns Section Related Observation LastModified by Organization Detai ls LastModified Time None Recorded Concern Status LastModified by Organization Details LastModified Time None Recorded Advance Directives Directive None Recorded Payers Insurance Date Sequence Insurance Name Policy Number Policy Simons Covered Member ID Simons Member ID Guarantor Name 02/20/2023 1 [facility] [employer] (PPO) [id number] James Hopkins [id number] Krishna Tomeka Sandeep 10/20/2022 1 [facility] ([place] [id number] James Hopkins [id number] Krishna M Sandeep Notes Date Note Type Note Provider Name and Address Organization Details Recorded Time 10/20/2022 text/html Anxiety/Depressi onRep orted by PatientHPIFor severity, patient reportsdenies suicidal ideations,able to maintain relationships, anddoes not interfere with activities of daily living. For duration, patient reportssymptoms lasting over 2 weeks. For context, patient reportsno major life stressors. For associated symptoms, patient reportsdenies homicidal ideations,no significant weight gain,no significant weight loss,no visual/auditory hallucinations,no delusions, andno shortness of breath. For quality, (doesnt matter time of day). For onset/timing, (stable). For modifying factors, (rx).stable with psychiatry managing. Wellness BRAYDEN Hill [address] [facility] [address], [place], [address], [facility] 10/20/2022 13:19:37 OBGyn Episode No OBEpisode recorded.
--- OUTSIDE RECORDS SUMMARY | 2025-03-28 08:32 | XMS_ITS | Clinical Summary ---
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
--- OUTSIDE RECORDS SUMMARY | 2025-03-28 08:32 | XMS_ITS | Data Portability ---
Author Organization IOANA SALLYRohit Leung Address [address] [facility] [place] [address] Care Team Providers Care Budget Clerk Name Role Phone ARIANASURINDERNITINIE Primary Care Provider Unavailab le Assessment No assessment recorded. Plan of Treatment Reminders Order Date Submit Date Provider Last Modified By Organization Details Last Modified Time Details Appointments None recorde d. Lab TSH + free T4, serum 2024 025 Personal Style F[employer] [facility], [facility] [address], [address], 13:58:02 thyroid peroxid ase (tpo) Ab, serum 2024 025 Personal Style Finder [facility], [facility] [address], [address], 5 13:59:21 lipid panel, serum 2024 025 [facility] [employer] [facility], [facility] [address], [address], 5 12:42:35 CBC w/ auto diff 2024 025 Personal Style Finder [facility], [facility] [address], [address], 5 13:59:35 CMP, serum or plasma 2024 025 Personal Style Finder [facility], [address] [place], [address], 5 13:58:25 vitamin B12 + folate, serum or blood 2024 025 [email or web address], [address] [facility] [address], [place], [address], 5 13:59:47 progest erone, serum 2024 025 [email or web address], [address] [address], [place], [address], 5 14:00:17 lh + FSH, serum 2024 025 [email or web address], [address] [address], [place], [address], 5 14:00:06 estradi ol, serum 2024 025 [email or web address], [facility] [address] [address], [place], [address], 5 14:00:27 HbA1c (hemogl obin A1c), blood 2024 025 [email or web address], [facility] [address], [address], 5 13:58:43 TSH + free T4, serum 2023 024 [facility] [facility], [facility] [address], [address], 4 09:34:36 lipid panel, serum 2023 024 [facility], [address], [address], 4 09:34:36 CBC w/ auto diff 2023 024 [employer] [facility], [address] [facility] [address], [place], [address], 4 09:34:37 CMP, serum or plasma 2023 024 [facility], [address] [facility] [address], [place], [address], 4 09:34:36 vitamin B12 + folate, serum or blood 2023 024 [employer] [facility], [address] [facility] [address], [place], [address], 4 09:34:37 HbA1c (hemogl obin A1c), blood 2023 024 [employer] [facility], [address] [facility] [address], [place], [address], 4 09:34:37 Referral None recorde d. Procedures None recorde d. Surgeries None recorde d. Imaging US, thyroid 2024 [facility], [address], [address], [address], 5 13:44:39 Medication Orders naproxe n 500 mg tablet 2024 [id number], [address] [place], [place], [id number], 5 16:16:28 cyclobe nzaprin e 5 mg tablet 2024 025 [id number], [address] [place] [place], [place], [id number], 5 16:16:28 triamte allen 37.5 mg-hydr ochloro thiazid e 25 mg tablet 2024 025 [facility] #[id number], [address] [facility], [place], [place], [id number], 13:42:56 Zepboun d 2.5 mg/0.5 mL subcuta neous pen injecto r 2023 024 [facility], [address] [facility], [place], [place], [id number], 15:44:06 Patient TargetsNo targets recorded. Patient Instructions Encounter Date Encounter Id Patient Instructions Last Modified By Organization Details Last Modified Time 09/26/2023 [id number] A healthy lifestyle: care instructions [place] Not available 10/08/2023 11:01:18 11/28/2024 [id number] A healthy lifestyle: care instructions [place] Not available 11/28/2024 16:16:09 Reason for Referral None Reported. Results Created Date Observation Date Name Description Value Unit Range Abnormal Flag Note LastModifiedBy Organization Detail LastModifiedTime 02/19/2002/19/2024 MAMMO , scree elicia, digit al, bilat eral No observ ation record ed. [email or web address] [address] [facility] [address], [place], [address], 02/19/2024 18:28:23 12/12/1912/11/2024 US, thyro id No observ ation record ed. [facility] [address], [place], [address], 12/12/2024 15:53:20 01/25/2001/21/2025 XR, cervi magalis spine No observ ation record ed. [address] [facility] [address], [place], [address], 01/26/2025 09:45:29 09/10/20 25 03/05/2025 MAMMO , scree elicia, digit al, bilat eral No observ ation record ed. [email or web address] [address] [place], [address], 03/06/2025 13:51:19 03/26/20 25 03/07/2025 US, pelvi s, compl ete No observ ation record ed. [facility] Not Available 2024 13:45:51 Result Notes None recorded. Problems Name Problem SNOMED Code Status Onset Date Resolution Date Notes Provider Name and Address Organization Details Recorded Time Mixed anxiety and depressive disorder 793642956 Active 2023 [address] Attn: Mounika reinoso,[address] [place], [address], [facility] 4 11:01:52 Attention deficit hyperactivity disorder 237750831 Active 2023 [address] Attn: Mounika reinoso,[address] [place], [address], [facility] 4 11:01:53 Long-term drug therapy Active 2023 [address] Attn: Mounika reinoso,[address] [place], [address], [facility] 4 11:01:56 Body mass index 40+ - severely obese 903892772 Active 2023 [address] Attn: Mounika reinoso,[address] [place], [address], [place] [facility] 4 11:01:57 Morbid obesity 609398718 Active 2023 [address] Attn: Mounika reinoso,[address] [place], [address], [place] [facility] 4 11:01:58 Chronic low back pain 741932866 Active 2024 [address] Attn: Mounika reinoso,[address] [place], [address], [place] [facility] 5 23:04:53 Obese class III 039766632 Active 2024 [address] Attn: Mounika reinoso,[address] [facility], [place], [address], [place] [facility] 5 23:05:07 Menopause finding 012689993 Active 2024 [address] Attn: Mounika reinoso,[address] [facility], [place], [address], [facility] 5 23:05:18 Elevated blood-pressure reading without diagnosis of hypertension 772097040 Active 2024 [address] Attn: Mounika reinoso,[address] [facility], [place], [address], [facility] 5 23:06:12 Problem Notes None recorded. Procedures Surgical History Date Name Laterality Status Provider Name and Address Organization Details Recorded Time LEEP completed Titus Hurt MA [facility] 09/26/2023 17:29:18 ligation of bilateral fallopian tubes completed Titus Hurt MA [facility] 09/26/2023 17:29:27 D & c after delivery completed Titus Hurt MA [facility] 09/26/2023 17:29:44 Imaging Results None recorded. Procedure [...] TABLETS BY MOUTH DAILY FOR 5 DAYS 04/02 /2024 completed Not Available Not Available Not Available [...] enidate ER 10 mg capsule,ext ended release [id number] TAKE 1 CAPSULE BY MOUTH EVERY [...] Last Updated DateTime 161.29 cm 46.4 kg/m2 238152. 57 g 100 % 100 % 69 /min 18 /min 132/82 mm[Hg] Titus Hurt MA [facility] 4 16:48:14 Date Recorded Systolic And Diastolic Provider Name and Address Organization Details Last Updated DateTime 11/28/2024 138/90 mm[Hg] BRAYDEN Hill Attn: Accounting,[address] [place], [address], [facility] 11/28/2024 16:18:16 Date Recorded Body height Body mass index (BMI) Body weight Oxygen saturation Oxygen saturation in Arterial blood by Pulse oximetry Heart rate Respiratory rate Systolic And Diastolic Provider Name and Address Organization Details Last Updated DateTime 5 161.29 cm 48.1 kg/m2 255299. 49 g 98 % 98 % 100 /min 20 /min 138/82 mm[Hg] Titus Hurt MA [facility] 5 15:48:46 Social History Question Answer Notes LastModified by Organizat ion Details LastModified Time Tobacco Smoking Status Never Smoker Titus Hurt MA null, [facility] 09/26/2023 16:44:03 Do You Have An Advance [...] anxious, or unable to sleep at night)? [id number] Information not available 09/26/2023 Family History Relationship [...] Skin Problems N Anemia N Heart Attack (MD) N Anxiety Disorder Y Diabetes N Muscle, [...] intradermal, preservative free 3 completed Not Available [facility] 11/28/2024 15:29:54 MMR 5 completed Not Available [facility] 11/28/2024 15:29:54 Influenza, split virus, quadrivalent, preservative 5 completed Not Available [facility] 11/28/2024 15:29:54 Influenza, split virus, quadrivalent, preservative 7 completed Not Available [facility] 11/28/2024 15:29:54 Influenza, split virus, quadrivalent, PF 0 completed Not Available [facility] 11/28/2024 15:29:54 COVID-19, mRNA, LNP-S, PF, 100 mcg/0.5mL dose or 50 mcg/0.25mL dose 1 completed Not Available [facility] 11/28/2024 15:29:54 COVID-19, mRNA, LNP-S, PF, 100 mcg/0.5mL dose or 50 mcg/0.25mL dose 1 completed Not Available [facility] 11/28/2024 15:29:54 Influenza, split virus, trivalent, PF 4 completed Not Available Replaced by [facility] 11/28/2024 15:29:54 Past Encounters Encounter ID Performer Location Encounter Start Date Encounter Closed Date Diagnosis/Indication Diagnosis SNOMED-CT Code Diagnosis ICD10 Code Diagnosis IMO Codes Diagnosis Note [id number] Bob Bower MD [facility] [address] [place] [address] 09/26/2023 16:28:14 09/26/2023 17:08:56 Cholesterol screening 364162231 Z13.220 fasting lipids are due Diabetes m ellitus screening 430172845 Z13.1 annual a1c screening due Thyroid di sorder screening 513814237 Z13.29 thyroid panel is due Mixed anxi ety and depressive disorder 778797956 F41.8 patient is doing excellent on sertraline 150mg daily therapy, managed from psychiatri st. Attention deficit hyperactivity disorder 198351971 F90.9 new dx with psychiatri st and excellent life changing results on methylphen idate ER 27mg daily. Adult heal th examination 878223973 Z00.01 annual wellness exam completed. pt re-establi sh from last PCP office. Long-term drug therapy 016227162 Z79.899 routine cbc, cmp and b12, folate labs due for annual review Body mass index 40+ - severely obese 148209584 Z68.42 start zepbound injectable therapy. no personal or family hx of Medullary thyroid cancer or MEN conditions . Morbid obesity 734183379 E66.01 discussed healthy diet, exercise, controllin g carbohydra darline and added sugars in the diet [id number] Bob Bower MD [facility] [address] [place] [address] 11/28/2024 15:14:36 11/29/2024 11:02:50 Body mass index 40+ - severely obese 801656167 Z68.42 Unfortunat archie injectable weight loss therapy was not covered by her insurance Obese class III 50759685 5 E66.813 4952261701 discussed healthy diet, exercise, controllin g carbohydra darline and added sugars in the diet Chronic low back pain 27 0676774 M54.50 G89.29 3701771534 Start naproxen 500 mg twice daily with meals and cyclobenza kaden 5 mg 3 times daily as needed Adult heal th examination 304506098 Z00.01 annual wellness exam completed. Mixed anxi ety and depressive disorder 129194492 F41.8 patient is doing excellent on sertraline 150mg daily therapy, managed from psychiatri . Attention deficit hyperactivity disorder 341149546 F90.9 new dx with psychiatri st and excellent life changing results on methylphen idate ER 27mg daily. Cholesterol screening 27 0699492 Z13.220 fasting lipids are due Diabetes m ellitus screening 964564056 Z13.1 annual a1c screening due Thyroid di sorder screening 002798349 Z13.29 thyroid panel is due Long-term drug therapy 638075412 Z79.899 routine cbc, cmp and b12, folate labs due for annual review Menopause finding 154303 006 N95.1 [id number] Patient requests hormone levels Elevated blood-pressure reading without diagnosis of hypertension 797919193 R03.0 380516 Blood pressure 138/90. Start low-dose Maxzide therapy along with keeping salt and caffeine monitored in the diet and exercise to help treat mild elevation in blood pressure Health Concerns Section Related Observation LastModified by Organization Shanelle tiwari LastModified Time None Recorded Concern Status LastModified by Organization Details LastModified Time None Recorded Advance Directives Directive N: Payers Insurance Date Sequence Insurance Name Policy Number Policy Simons Covered Member ID Simons Member ID Guarantor Name 12/17/2024 1 [employer]PP[employer]) James Hopkins [id number] Judie Hopkins Notes Date Note Type Note Provider Name and Address Organization Details Recorded Time 09/26/19 24 text/ht ml InsomniaReported by PatientHPIFor context, patient reportsusing medications for sleep. For associated symptoms, patient reportsanxietyanddepression. For quality, patient reportssymptoms worse in the evening. For severity, patient reportsimproving. For duration, patient reportsfrequent. For modifying factors, patient reportsprescription medication.stable on medication: trazodone qhs and also zolpidem PRN Anxiety/DepressionReported by PatientHPIFor associated symptoms, patient reportsanxietyanddepressionbut reportsdenies homicidal ideations,no significant weight gain,no significant weight loss,no visual/auditory hallucinations,no delusions,no shortness of breath,mood good,no crying spells,no panic,no isolation,sleeping well,appetite good,energy good,no apathy, andmaintaining functionality(adhd). For quality, patient reportssymptoms improved. For severity, patient reportsdenies suicidal ideations,able to maintain relationships, anddoes not interfere with activities of daily living. For duration, patient reportsstablizing. For context, patient reportsno major life stressors. For modifying factors, patient reportscounsellingandmedications as directed(psychiatrist). ObesityReported by PatientHPIFor associated symptoms, patient reportsdepression or anger symptoms (depression/anxiety managed on medications.). For context, patient reportsno oral steroids. For lifestyle changes, patient reportsno changes in living situation,motivated to continue lifestyle changes, andexercising more. For nutrition, patient reportseats mostly healthy diet,counting and restricting calories, andrestricting concentrated sugars. For physical activity, patient reportsreported frequency of moderate level of physical activity per week: 2-4 days. For medication education, patient reportsunderstands potential side effectsandunderstands role of diet as primary therapy. For co-morbidities, (adhd). ADHD new dx with psychiatrist. on generic concerta and has been life changing for her mental health stability. BRAY[facility] Hill Attn: Accounting, [address] [place], [address], [facility] 10/08/2023 11:04:02 06/05/20 25 text/ht ml InsomniaReported by PatientHPIFor context, patient reportsusing medications for sleep. For associated symptoms, patient reportsanxietyanddepression. For quality, patient reportssymptoms worse in the evening. For severity, patient reportsimproving. For duration, patient reportsfrequent. For modifying factors, patient reportsprescription medication.stable on medication: trazodone qhs and also zolpidem PRN Anxiety/DepressionReported by PatientHPIFor associated symptoms, patient reportsanxietyanddepressionbut reportsdenies homicidal ideations,no significant weight gain,no significant weight loss,no visual/auditory hallucinations,no delusions,no shortness of breath,mood good,no crying spells,no panic,no isolation,sleeping well,appetite good,energy good,no apathy, andmaintaining functionality(adhd). For quality, patient reportssymptoms improved. For severity, patient reportsdenies suicidal ideations,able to maintain relationships, anddoes not interfere with activities of daily living. For duration, patient reportsstablizing. For context, patient reportsno major life stressors. For modifying factors, patient reportscounsellingandmedications as directed(psychiatrist). ObesityReported by PatientHPIFor associated symptoms, patient reportsdepression or anger symptoms (depression/anxiety managed on medications.). For context, patient reportsno oral steroids. For lifestyle changes, patient reportsno changes in living situation,motivated to continue lifestyle changes, andexercising more. For nutrition, patient reportseats mostly healthy diet,counting and restricting calories, andrestricting concentrated sugars. For physical activity, patient reportsreported frequency of moderate level of physical activity per week: 2-4 days. For medication education, patient reportsunderstands potential side effectsandunderstands role of diet as primary therapy. For co-morbidities, (adhd). Back PainReported by PatientHPIFor location, patient reportspain radiating to the buttocks. For quality, patient reportssharpanddull. For severity, patient reportssevere (8-10),interference with sleep, andinterference with work. For aggravating factors, patient reportsmovement/positioning,twist ing,flexing back, andextending back. For duration, patient reportsintermittentandchronic. For onset/timing, patient reportsrecurrent episode. For context, patient reportsprior back problemsandused medications for back pain. For alleviating factors, patient reportsrest. For associated symptoms, patient reportsno fever,no weak limbs,no numbness of the legs/feet,no tingling,no incontinence, andno shortness of breath.Patient is interested in having a stand-up desk at work and needs paperwork completed for this ADHD dx with psychiatrist. on generic concerta and has been life changing for her mental health stability. BRAYDEN Hill Attn: Accounting, [address] [place], [address], [facility] 12/16/2024 23:06:41 OBGyn Episode No OBEpisode recorded.
[2025-03-28 09:36] LABS: Anion Gap 7 mmol/L (4-12); Blood Urea Nitrogen 20 mg/dL (7-17); Calcium 9.0 mg/dL (8.4-10.2); Carbon Dioxide 27 mmol/L (22-30); Chloride 105 mmol/L (98-107); Estimated Glomerular Filt Rate > 60; Glucose 94 mg/dL (65-110); Potassium 4.2 mmol/L (3.4-5.0); Sodium 139 mmol/L (137-145)
== END 2025-03-28 08:28 | disposition home or self-care (01) ==
LOC: ANHLAB 08:28
PROVIDERS: PCP Physician Assistant; Visit Provider Anesthesiology
DX: Z01.818 Encounter for other preprocedural examination (principal); M79.89 Other specified soft tissue disorders
CPT/HCPCS: 36415; 80048

== ENCOUNTER 2025-04-02 01:56 | Day surgery (SDC) | payer OTHER, SELFPAY ==
[2025-03-25 12:17] VITALS: BMI 47.9
--- NOTE | 2025-03-25 12:37 | PC.NURSE ---
[facility] has started construction of its new state of the art ER which will open Spring 2026. With this, we anticipate parking may be a challenge for some our surgical patients and families. Parking spaces are limited but are available for all Surgical, obstetrics, and ER patients sharing this lot. If you arrive and find you are having a hard time finding a parking space, please note that we understand the challenges, please drive around the hospital and park near Hospital Entrance 1. When you enter this entrance, you can ask a volunteer to direct or take you back to the surgical waiting area to check in. We appreciate everyone?s understanding of these expected challenges while we build for your future. Report to the Outpatient Waiting Room, entrance under the green pavilion located off [address], at time _0800 on date __03/25/25 . Planned Procedure Time: __1000 .? Time changes happen often and if your time is changed the preop area will call you the afternoon before. - You and your visitor will be asked to self-screen and do not enter if you have any COVID symptoms. Please call surgeon if you need to reschedule. - A mask is optional within the hospital at this time. Patients may have clear liquids (water, carbonated beverages, clear teas, apple juice) until 3 hours prior to surgery with a maximum of 20 ounces. - No food from midnight until time of surgery and no smoking, or chewing tobacco (or any form of nicotine). No chewing gum, candy or mints. - Infants may have breast milk until 4 hours before surgery, formula 6 hours prior to surgery. - Children will be allowed to drink immediately following surgery.? If applicable, please bring a bottle or sippy cup to assist with drinking. Juice, water, soda, and popsicles are readily available.? For infants on formula, please bring formula the day of surgery.? Pacifiers are allowed. Take only the following medications with a SIP of water on the morning of surgery: _Inhailer, Alprazolam, Valacyclovir DO NOT STOP ANY OF YOUR OTHER PRESCRIPTION MEDICATIONS PRIOR TO SURGERY EXCEPT THE FOLLOWING Hold all vitamins and supplements for 3 days per anesthesiologist. Medications to discontinue per physician ___Vitamins 3 days prior and NSAIDS 7 days prior Please no make-up, nail thai, hairspray, perfume, deodorant, or body powder the day of surgery.? No jewelry (including any body piercings) or valuables the day of surgery, leave them at home.? Please take a shower or bath the night before, or the morning of, surgery with an antibacterial soap.? Wear comfortable, loose fitting clothing.? Children are encouraged to wear pajamas. - Jewelry must be removed prior to entering the operating room.? Rings and piercings that are not removed may be cut off. - The hospital will not accept responsibility for valuables.? - Please leave all valuables, including medications, at home the day of surgery. If you are going home after surgery, a licensed services delivery driver must drive you home.? - NO public transportation without another adult if you receive anesthesia. - We recommend that an adult stay with you for 24 hours following discharge. - We also recommend that you do not drive, make important decision, drink alcoholic beverages, or take any drugs that were not prescribed by your health care provider for at least 24 hours after your discharge time. For Pediatric surgeries, we recommend two adults accompany the child home. Follow any additional instructions given to you from your surgeon. Telephone instructions given to _Judie and asked if any additional questions and then verbalized understanding. Patient advised to call surgeon office or pre surgery nurse liaison [phone] if any additional questions.
[2025-04-02 08:13] VITALS: BP 139/79; PULSE 80; RESP 16; TEMP 36.3; O2SAT 98
[2025-04-02] MEDS: LACTATED RINGERS 1,000 ML 30 ML IV CONT (08:40)
--- NOTE | 2025-04-02 09:30 | WPDHPUPDATE1 ---
History and Physical Update Update Date/Time: 04/02/25 09:30 History and Physical has been reviewed, including an updated exam of the patient. There are NO changes in the patient's condition. Risks, benefits, and alternatives have been discussed and questions answered. Patient agrees to proceed with procedure.
--- NOTE | 2025-04-02 09:40 | WPDANESEPPF ---
Anes - Initial Pre Proc Eval Procedure: Operation Date: 04/02/25 10:00 Proposed Procedures p Right Carpal Tunnel Release - Marina Osullivan MD Date/Time: 04/02/25 09:40 Surgeon: Marina Osullivan MD Pre Op Diagnosis: right carpal tunnel syndrome Patient Data Age: 39 Gender: F Height: 1.61 m Weight: 124.74 kg Allergies Allergy/AdvReac Type Severity Reaction Status Date / Time No Known Allergies Allergy Verified 04/02/25 08:15 Home Medications ?Medication ?Instructions ?Recorded ?Confirmed ?Type alprazolam 0.25 mg tablet 0.25 mg PO PRN PRN anxiety 01/12/22 04/02/25 History sertraline 100 mg tablet 100 mg PO HS 01/12/22 04/02/25 History sertraline 50 mg tablet 50 mg PO HS 01/12/22 04/02/25 History trazodone 100 mg tablet 100 mg PO QHS 01/12/22 04/02/25 History zolpidem 10 mg tablet 5 mg PO QHS 01/12/22 04/02/25 History albuterol sulfate 90 mcg/actuation 1 inh inhalation PRN PRN Shortness 03/07/22 03/25/25 History breath activated powder inhaler Of Breath valacyclovir 1 gram tablet 1,000 mg PO DAILY PRN cold sores 01/06/25 03/25/25 History cetirizine 10 mg tablet (24Hour 5 mg PO HS PRN allergy symptoms 03/25/25 03/25/25 History Allergy) clobetasol 0.05 % topical ointment 1 applic topical PRN 03/25/25 03/25/25 History hydrochlorothiazide 12.5 mg tablet 12.5 mg PO DAILY PRN Leg swelling 03/25/25 04/02/25 History mecobalamin (vitamin B12) 1,000 1,000 mcg PO DAILY 03/25/25 04/02/25 History mcg chewable tablet methylphenidate HCl 36 mg 36 mg PO DAILY 03/25/25 04/02/25 History tablet,extended release 24 hr Patient hx anesthesia problems: none Family hx anesthesia problems: none Results Review: All pre-operative results and documents have been reviewed as part of the pre-operative evaluation. [facility] Past Medical History Medical History ADHD Asthma Depression Anxiety disorder Surgical History Surgical History History of hysteroscopy (06/23/22) hscope D&C / Ablation History of excision of mass excision lipoma on upper back Hx LEEP (loop electrosurgical excision procedure), cervix, 2011 H/O bilateral salpingectomy Family History Family History Mother Family history of thyroid disease Family history of obesity Skin cancer Sibling Family history of obesity Depression Father Family history of alcoholism Malignant neoplasm of prostate Social History Social History Smoking status: Never smoker Alcohol intake: current Alcohol use details: occasionally,once a month Substance use: never Substance use type: does not use Do You Feel Safe in your Home?: Yes Lack of Transportation: No Lack of Food: Never True Current Housing: I Have Housing Concerned About Future Housing: No Difficulty Paying Gas/Electric Bills: No Difficulty Paying for Meds: No Currently Unemployed: No Education: Bachelor's Degree Difficulty w/ Childcare or Family Care: No Living arrangements: alone Additional living arrangements comments: and son Occupation/Education: occupation Additional occupation/education comments: legal asst Gender identity (if verbalized by the patient): Female Sexual Orientation (if Verbalized by the Patient): Straight or Heterosexual Spiritual care concerns: No Anes - Eval Final PreProcedure Day of Procedure 04/02/25 09:40 Patient weight: morbidly obese Heart: regular rate and rhythm Lungs: clear to auscultation Airway: Mallampati scale class III Neurological: alert and oriented Last oral intake: >/= 8 hours ASA classification: III Emergent: no Anesthetic plan: proceed Anesthesia type and monitoring: general GIVS and LMA and standard monitoring Results Review: All pre-operative results and documents have been reviewed as part of the pre-operative evaluation. Informed Consent: The patient's anesthetic plan and its attendant risks and benefits were discussed with the patient/family/POA. Questions were solicited and answers provided to the satisfaction of the patient/family/POA.
[2025-04-02] MEDS: ceFAZolin 3 GM/D5W 100 ML 100 ML IVPB (09:45)
[2025-04-02] MEDS: BUPivacaine HCL 0.5% 10 ML AMP 30 ML INFILTRATE (10:01)
[2025-04-02 10:36] VITALS: BP 142/89; PULSE 73; RESP 12; O2SAT 100
--- NOTE | 2025-04-02 10:37 | W.PM.PROC2 ---
Procedure Note - Detailed Date of Procedure 04/02/25 Pre-op Diagnosis right carpal tunnel syndrome Post-op Diagnosis Same Procedure Performed Right carpal tunnel release Surgeon Marina Osullivan MD Corporate Security Manager [facility] [place] of Procedure The patient was brought to the operating room where anesthesia was induced. The patient remained supine on the bed with the right arm extended onto an armboard. A straight incision on the ulnar side of the thenar crease in line with the anterior webspace between the third and fourth finger was planned. The hand and arm were prepped and draped in usual sterile fashion. Time-out was performed. The incision was injected local anesthetic. A 15 blade scalpel was used to open the incision. The bipolar was used to obtain hemostasis. A Metzenbaum scissor was used to bluntly separate the subcutaneous tissue until the flexor retinaculum was visualized. A self-retaining retractor was placed. A new 15 blade scalpel was then used to slowly open the flexor retinaculum, first extending distally until fat was identified. This was noted to be fairly calcified and difficult to cut through. I then focused on the proximal opening of the carpal tunnel. Under direct visualization and using Metzenbaum scissors, the flexor retinaculum was opened proximally until the carpal tunnel was felt to be fully decompressed. The extent of the opening was checked again to confirm that the nerve was fully decompressed. The surgical site was copiously irrigated. Hemostasis was verified with the bipolar. The skin was closed with 3-0 nylon vertical mattress sutures which was then dressed with fluff gauze, Kerlix, and an Kenan bandage. The arm was placed into a sling. The patient was awakened from anesthesia and transferred to the PACU without incident. Billing code: 85189 Estimated Blood Loss 10 Drains No Packing No Pathology None sent Complications None Condition Stable Disposition PACU [facility] Billing Surgery - Charge Forward: Surgery Billing
[2025-04-02 11:00] VITALS: BP 148/95; PULSE 62; RESP 20
[2025-04-02] MEDS: oxyCODONE HCL (*CRX) 5 MG TAB IR PO (11:02)
[2025-04-02 11:30] VITALS: BP 130/88; PULSE 62; RESP 20
[2025-04-02 11:45] VITALS: BP 135/90; PULSE 62; RESP 20
== END 2025-04-02 11:51 | disposition home or self-care (01) ==
PROVIDERS: PCP Physician Assistant; Visit Provider Neurological Surgery
PROC: (CPT 64721; principal; 2025-04-02 10:00)
DX: G56.01 Carpal tunnel syndrome, right upper limb (principal); J45.909 Unspecified asthma, uncomplicated; F90.9 Attention-deficit hyperactivity disorder, unspecified type; F41.9 Anxiety disorder, unspecified; F32.A Depression, unspecified; E66.01 Morbid (severe) obesity due to excess calories; Z68.42 Body mass index [BMI] 45.0-49.9, adult; Z79.51 Long term (current) use of inhaled steroids; Z98.890 Other specified postprocedural states; Z84.0 Family history of diseases of the skin and subcutaneous tissue; Z80.42 Family history of malignant neoplasm of prostate
CPT/HCPCS: 64721; A9270; J0690; J2003; J2250; J2405; J2704; J3010; J7120

== ENCOUNTER 2025-06-11 03:46 | Day surgery (SDC) | payer OTHER, SELFPAY ==
--- OUTSIDE RECORDS SUMMARY | 2025-02-28 10:00 | XMS_ITS ---
Author Organization [facility] Address [address] [place] [address] Care Team Providers Care Aquaculture Director Name Role Phone Daniela Cullen Primary Care Provider China Beck Unavailable [phone] Luis Patel Unavailable [phone] REASON FOR VISIT Follow Up Medications Medication SIG (Take, Route, Frequency, Duration) Notes Start Date End Date Status Sertraline HCl 50 MG Tablet 1 tablet Orally Once a day; Duration: 90 days take with 100mg tablet- total dose 150mg Active valACYclovir HCl 1 GM Tablet Oral 08/28/2023 Active Zolpidem Tartrate 5 MG Tablet 1 tablet at bedtime as needed Oral Once a day; Duration: 30 days 02/13/2025 03/15/2025 Active ALPRAZolam 0.25 MG Tablet 1 tablet Oral once a day; Duration: 30 days As needed Active ProAir HFA 108 (90 Base) MCG/ACT Aerosol Solution Inhalation 08/28/2023 Act stan Methylphenidate HCl ER 36 MG Tablet Extended Release 24 Hour 1 tablet every morning Oral once a day; Duration: 30 days 02/13/2025 Active traZODone HCl 100 MG Tablet 1 tablet Oral Once a day; Duration: 90 days As needed Active Sertraline HCl 100 MG Tablet 1 tablet Oral Once a day; Duration: 90 days take with 50mg tablet - total dose 150mg Active Social History Sex Assigned At : Social History Observation Description Sex Assigned At Female Encounters Encounter Location Date Provider Diagnosis [facility] [address] [place] [address] 02/28/2025 Luis Patel Plan Of Treatment Next Appt Details Provider Name:China Mccollum, 08/29/2025 04:30:00 PM, [address], [facility] [address], [place], [address], Progress Notes * KRISHNA ÁLVAREZ MDOB:1985 (39 yo F)Acc No.[id number]:02/28/2025 Patient: KRISHNA CAPONE Provider: PROMISE FERNANDES :1985 A ge:39 Y S ex:Female Date:02/28/2025 Address:[facility] [address], [facility] Pcp:Daniela OWEN Subjective: * Chief Complaints: * F ollow Up * Medications: T akingALPRAZolam 0.25 MG Tablet 1 tablet Oral once a day As neededProAir HFA 108 (90 Base) MCG/ACT Aerosol Solution Inhalation valACYclovir HCl 1 GM Tablet Oral Zolpidem Tartrate 5 MG Tablet 1 tablet at bedtime as needed Oral Once a day , stop date 03/15/2025Methylphenidate HCl ER 36 MG Tablet Extended Release 24 Hour 1 tablet every morning Oral once a day traZODone HCl 100 MG Tablet 1 tablet Oral Once a day As neededSertraline HCl 100 MG Tablet 1 tablet Oral Once a day take with 50mg tablet - total dose 150mgSertraline HCl 50 MG Tablet 1 tablet Orally Once a day take with 100mg tablet- total dose 150mgTaking ALPRAZolam 0.25 MG Tablet 1 tablet Oral once a day As neededTaking ProAir HFA 108 (90 Base) MCG/ACT Aerosol Solution Inhalation Taking valACYclovir HCl 1 GM Tablet Oral Taking Zolpidem Tartrate 5 MG Tablet 1 tablet at bedtime as needed Oral Once a day , stop date 03/15/2025Taking Methylphenidate HCl ER 36 MG Tablet Extended Release 24 Hour 1 tablet every morning Oral once a day Taking traZODone HCl 100 MG Tablet 1 tablet Oral Once a day As neededTaking Sertraline HCl 100 MG Tablet 1 tablet Oral Once a day take with 50mg tablet - total dose 150mgTaking Sertraline HCl 50 MG Tablet 1 tablet Orally Once a day take with 100mg tablet- total dose 150mg Billing Information: * Procedure Codes: * Electronic signature of PROMISE Edgar on 06/11/2025 at 03:49 AM PATIENT SUPPORT ASSOCIATE Sign off status: Pending * Provider: PROMISE FERNANDES Date: 0 02/28/2025 Generated for Maurisio muñiz/Junie/Rae on: 1 08/12/2024 03:49 AM PATIENT SUPPORT ASSOCIATE
[2025-06-09 09:45] VITALS: BMI 47.2
--- NOTE | 2025-06-09 09:52 | PC.NURSE ---
[facility] has started construction of its new state of the art ER which will open Spring 2026. With this, we anticipate parking may be a challenge for some our surgical patients and families. Parking spaces are limited but are available for all Surgical, obstetrics, and ER patients sharing this lot. If you arrive and find you are having a hard time finding a parking space, please note that we understand the challenges, please drive around the hospital and park near Hospital Entrance 1. When you enter this entrance, you can ask a volunteer to direct or take you back to the surgical waiting area to check in. We appreciate everyone?s understanding of these expected challenges while we build for your future. Report to the Outpatient Waiting Room, entrance under the green pavilion located off [address], at time _1000_ on date __06/11/25. Planned Procedure Time: _1200_.? Time changes happen often and if your time is changed the preop area will call you the afternoon before. - You and your visitor will be asked to self-screen and do not enter if you have any COVID symptoms. Please call surgeon if you need to reschedule. - A mask is optional within the hospital at this time. Patients may have clear liquids (water, carbonated beverages, clear teas, apple juice) until 3 hours prior to surgery with a maximum of 20 ounces. - No food from midnight until time of surgery and no smoking, or chewing tobacco (or any form of nicotine). No chewing gum, candy or mints. Take only the following medications with a SIP of water on the morning of surgery: METHYLPHENIDATE, XANAX IF NEEDED DO NOT STOP ANY OF YOUR OTHER PRESCRIPTION MEDICATIONS PRIOR TO SURGERY EXCEPT THE FOLLOWING Hold all vitamins and supplements for 3 days per anesthesiologist. Medications to discontinue per physician Date to take last dose Please no make-up, nail guyanese, hairspray, perfume, deodorant, or body powder the day of surgery.? No jewelry (including any body piercings) or valuables the day of surgery, leave them at home.? Please take a shower or bath the night before, or the morning of, surgery with an antibacterial soap.? Wear comfortable, loose fitting clothing.? Children are encouraged to wear pajamas. - Jewelry must be removed prior to entering the operating room.? Rings and piercings that are not removed may be cut off. - The hospital will not accept responsibility for valuables.? - Please leave all valuables, including medications, at home the day of surgery. If you are going home after surgery, a licensed hazardous materials driver must drive you home.? - NO public transportation without another adult if you receive anesthesia. - We recommend that an adult stay with you for 24 hours following discharge. - We also recommend that you do not drive, make important decision, drink alcoholic beverages, or take any drugs that were not prescribed by your health care provider for at least 24 hours after your discharge time. For Pediatric surgeries, we recommend two adults accompany the child home. Follow any additional instructions given to you from your surgeon. Telephone instructions given to _PATIENT_and asked if any additional questions and then verbalized understanding. Patient advised to call surgeon office or pre surgery nurse liaison [phone] if any additional questions.
--- OUTSIDE RECORDS SUMMARY | 2025-06-11 03:48 | XMS_ITS | Clinical Summary ---
Author Organization [facility] Address [address] [place] [id number] Phone Care Team Providers Care Candle Molder Machine Name Role Phone Unavailable Unavailable Unavailable Reason for Visit and Chief Complaint * PHONE CALL Problems Includes: Problems addressed during this encounter and other active Problems All Visits Onset Date Resolved Date Provider Condition S tatus Herpes Simplex 12/31/2012 LESLIE YPA WHNP-BC Active Last Documented On 3 4:14PM ; [facility] Previous Leep 06/29/2012 LESLIE YAP WHNP-BC Active Last Documented On 06/29/2012 12:44PM ; [facility] Note: 07-11-11 - Dr. Garcia ANXIETY STATE NOS 06/10/2011 SANTOS GARCIA M.D. Active Last Documented On 1 3:39PM ; [facility] Depressive Disorder NEC 06/10/2011 SANTOS SANTANA M.D. Active Last Documented On 1 3:45PM ; [facility] Plan of Treatment - OTHER - Last Documented On 08/16/2013 11:42AM ; [facility] PHY ORDER/COMMENT May schedule U/S and quant HCG/progesterone ... may be done today or early next week. Appt. will need to be NOB - Last Documented On 08/16/2013 11:42AM ; [facility] Assessments Includes: Assessments from this encounter No Assessments Recorded Medical Equipment - Implanted Devices Includes: Current Devices No Medical Equipment Recorded Medications Includes: Medications discussed during this encounter and other current Medications Current Medications (continue as prescribed) Valtrex 1 GM OR TABS 06/10/2011 Provider: Diagnosis: Last Documented On 1 3:41PM By SEVEN BRANHAM MA ; [facility] Past Medications on file Ortho-Cyclen (28) 0.25-35 MG-MCG OR TABS 12/31/2012 - 06/29/2013 Provider: LESLIE SANCHEZ Diagnosis: CONTRACEPT SURVE ILL NOS Last Documented On 3 4:21PM By LESLIE SANCHEZ ; [facility] Milad DHA 29-1-200 & 400 MG OR MISC 12/31/2012 - 04/30/2013 Provider: LESLIE SANCHEZ Diagnosis: OTHER FAMILY IVANA NNING ADVICE NEC Last Documented On 3 4:21PM By LESLIE YAP TADEO ; [facility] Medications Administered Includes: Administered Medications from this encounter No Administered Medications Recorded Results Includes: Results discussed during this encounter No Results Recorded For Specified Dates History of Present Illness Includes: History of Present Illness from this encounter No History of Present Illness Recorded Social History No Social History Recorded - Smoking Status Unknown Medical History Includes: Medical History addressed during this encounter Description Last Updated LMP: 06/16/2013 08/16/2013 Last Documented On 4 11:42AM ; [facility] Family History Includes: Family History addressed during this encounter No Family History Recorded Review of Systems Includes: Review of Systems from this encounter Genitourinary: . Mental Status Includes: Mental Status from this encounter No Mental Status Recorded Functional Status Includes: Functional Status from this encounter No Functional Status Recorded Physical Exam Includes: Physical Exam from this encounter No Physical Exam Recorded Allergies Includes: Active Allergies No Known Allergies Encounters Encounter Provider Location Date Check-In Time Check-Out Time Diagnosis * PHONE CALL IRVIN MORALES MD [facility] TRIM AND BURR OPERATOR 4 11:14AM 11:59PM Clinical Notes Includes: Clinical Notes from this encounter No Clinical Notes Recorded
--- OUTSIDE RECORDS SUMMARY | 2025-06-11 03:48 | XMS_ITS | Patient Health Record ---
Author Organization [facility] Address [address] [facility] [address] [place] [address] Care Team Providers Care Search Engine Optimization Strategist Name Role Phone Daniela Cullen Primary Care Provider China Beck Unavailable [phone] Leanne Kilpatrick Unavailable [phone] Luis Patel Unavailable [phone] Letty Casas Unavailable [phone] Allergies No Known Allergies Results Component Value Reference Range Notes UDT Reviewed date:08/28/2024 06:06:01 PM Interpretation: Performing Lab: Notes/Report: Amphetamine (AMP) NEG 0 - 1000 ng/ml Buprenorphine (BUP) NEG 0 - 10 ng/ml Oxazepam (BZO) NEG 0 - 300 ng/ml Cocaine (SANDY) NEG 0 - 300 ng/ml Methamphetamine (mAMP) NEG 0 - 300 ng/ml Methylenedioxymethamphetamine (MDMA) NEG 0 - 500 ng/ml Morphine (MOP) NEG 0 - 25 ng/ml Methadone (MTD) NEG 0 - 300 ng/ml Oxycodone (OXY) NEG 0 - 300 ng/ml THC NEG 0 - 50 ng/ml x NEG 0 - 1000 ng/ml x NEG 0 - 1000 ng/ml x NEG 0 - 300 ng/ml x NEG 0 - 300 ng/ml x NEG 0 - 300 ng/ml UDT Reviewed date:03/10/2025 12:22:29 PM Interpretation: Performing Lab: Notes/Report: Amphetamine (AMP) n 0 - 1000 ng/ml Buprenorphine (BUP) n 0 - 10 ng/ml Oxazepam (BZO) p 0 - 300 ng/ml Cocaine (SANDY) n 0 - 300 ng/ml Methamphetamine (mAMP) n 0 - 300 ng/ml Methylenedioxymethamphetamine (MDMA) n 0 - 500 ng/ml Morphine (MOP) n 0 - 25 ng/ml Methadone (MTD) n 0 - 300 ng/ml Oxycodone (OXY) n 0 - 300 ng/ml THC n 0 - 50 ng/ml x n 0 - 1000 ng/ml x n 0 - 1000 ng/ml x n 0 - 300 ng/ml x n 0 - 300 ng/ml Reason For Referral No Information Medications Medication SIG (Take, Route, Frequency, Duration) Notes Start Date End Date Status Sertraline HCl 50 MG Tablet 1 tablet Orally Once a day; Duration: 90 days take with 100mg tablet- total dose 150mg 05/30/2025 Active Zolpidem Tartrate 5 MG Tablet 1 tablet at bedtime as needed Oral Once a day; Duration: 30 days 05/30/2025 09/27/2025 Active Methylphenidate HCl ER 54 MG Tablet Extended Release 24 Hour 1 tablet every morning Oral once a day; Duration: 30 days 05/30/2025 Active ALPRAZolam 0.25 MG Tablet 1 tablet Oral once a day; Duration: 30 days As needed 05/30/2025 Active valACYclovir HCl 1 GM Tablet Oral 08/28/2023 Active ProAir HFA 108 (90 Base) MCG/ACT Aerosol Solution Inhalation 08/28/2023 Act stan traZODone HCl 100 MG Tablet 1 tablet Oral Once a day; Duration: 90 days As needed 05/30/2025 Active Sertraline HCl 100 MG Tablet 1 tablet Oral Once a day; Duration: 90 days take with 50mg tablet - total dose 150mg 05/30/2025 Active Immunizations Vaccine Route Administration Date Status [...] Vaccine 1st dose Unknown 07/28/2020 Administered Novel [id number], preservative free Unknown 03/21/2020 Administered Social History Tobacco Use: Social History Observation Description Date Details (start date - stop date) Never Smoker NA - NA Sex Assigned At : Social History Observation Description Sex Assigned At Female Social History Miscellaneous: Social Info Question Answer Notes Advance Care Planning Are you your own decision-maker Yes Do you have Power of Plant Protection Superintendent for Health or [facility]? No Drug/Alcohol: Social Info Question Answer Notes [...] Risk Notes Problem Mild recurrent major depression (36399677) Major depressive disorder, recurrent, mild (F33.0) Active confirmed Problem Generalized anxiety disorder (18683059) Generalized anxiety disorder (F41.1) Active confirmed Problem Primary insomnia (8939315) Primary insomnia (F51.01) Active confirmed Problem Attention deficit hyperactivity disorder, combined type (83321281) Attention-deficit hyperactivity disorder, combined type (F90.2) Active confirmed Problem Panic disorder (227631549) Panic disorder [episodic paroxysmal anxiety] without agoraphobia (F41.0) Active confirmed Vital Signs Heart Rate 82 /min 05/30/2025 Height-cm 161.29 cm 05/30/2025 Blood pressure diastolic 83 mm Hg 05/30/2025 Weight-kg 124.74 kg 05/30/2025 Height 63.50 in 05/30/2025 Blood pressure systolic 130 mm Hg 05/30/2025 Weight 275 lbs 05/30/2025 BMI 47.94 kg/m2 05/30/2025 Encounters Encounter Location Date Provider Diagnosis [place] [address] [facility] [address] [place] [address] 08/28/2024 Luis Patel Generalized anxiety disorder F41.1 ; Attention-deficit hyperactivity disorder, combined type F90.2 ; Major depressive disorder, recurrent, mild F33.0 ; Panic disorder [episodic paroxysmal anxiety] without agoraphobia F41.0 and Primary insomnia F51.[address] [facility] [address] [place] [address] 11/20/2024 Luisrobert Johnsona Encounter for screen ing for cardiovascular disorders Z13.6 ; Negative depression screening Z13.31 ; Generalized anxiety disorder F41.1 ; Attention-deficit hyperactivity disorder, combined type F90.2 ; Major depressive disorder, recurrent, mild F33.0 ; Panic disorder [episodic paroxysmal anxiety] without agoraphobia F41.0 and Primary insomnia F51.[address] [address] 03/07/2025 Luis Patel Generalized anxiety disorder F41.1 ; Attention-deficit hyperactivity disorder, combined type F90.2 ; Major depressive disorder, recurrent, mild F33.0 ; Panic disorder [episodic paroxysmal anxiety] without agoraphobia F41.0 and Primary insomnia F51.01 [place] [address] [facility] [address] [address] 05/30/2025 Luis Patel Generalized anxiety disorder F41.1 ; Attention-deficit hyperactivity disorder, combined type F90.2 ; Major depressive disorder, recurrent, mild F33.0 ; Panic disorder [episodic paroxysmal anxiety] without agoraphobia F41.0 and Primary insomnia F51.01 [place] [address] [address] 01/13/2025 Letty Casas Primary insomnia F51 .[address] [facility] [address] [place] [address] 02/20/2025 Luis Patel Primary insomnia F51 .01 ; Major depressive disorder, recurrent, mild F33.0 and Generalized anxiety disorder F41.[address] [facility] [address] [place] [address] 07/03/2024 Luis Patel Attention-deficit hyperactivity disorder, combined type F90.2 [facility], [facility] [address] [place] [address] 07/04/2024 Leanne Kilpatrick Attention-deficit hyperactivity disorder, combined type F90.2 [facility], [facility] [address] [place] [address] 08/08/2024 Luis Patel Attention-deficit hyperactivity disorder, combined type F90.2 [facility], [facility] [address] [place] [address] 09/16/2024 Letty Casas Attention-deficit hyperactivity disorder, combined type F90.2 [facility], [facility] [address] [place] [address] 10/24/2024 Luis Patel [facility], [facility] [address] [place] [address] 10/28/2024 Luis Patel Attention-deficit hyperactivity disorder, combined type F90.2 [facility], [facility] [address] [place] [address] 12/05/2024 Luis Patel Attention-deficit hyperactivity disorder, combined type F90.2 [facility], [facility] [address] [place] [address] 12/05/2024 Luis Patel [facility], [facility] [address] [place] [address] 01/12/2025 Letty Casas Attention-deficit hyperactivity disorder, combined type F90.2 and Primary insomnia F51.01 [facility], [facility] [address] [place] [address] 02/13/2025 Luis Patel Primary insomnia F51 .01 and Attention-deficit hyperactivity disorder, combined type F90.2 [facility], [facility] [address] [place] [address] 02/28/2025 Luis Patel [facility], [facility] [address] [place] [address] 03/04/2025 Luis Talbertoza [facility], [facility] [address] [place] [address] 03/17/2025 Luis Patel Attention-deficit hyperactivity disorder, combined type F90.2 [facility] [address] [facility] [address] [place] [address] 03/18/2025 Luis Patel Primary insomnia F51 .01 [place] [address] [facility] [address] [place] [address] 04/18/2025 Luis Patel Attention-deficit hyperactivity disorder, combined type F90.2 [place] [address] [facility] [address] [facility] [address] [place] [address] 04/18/2025 Luis Patel Attention-deficit hyperactivity disorder, combined type F90.2 Assessments Encounter Date Diagnosis (ICD Code) Assessment Notes Treatment Notes Treatment Clinical Notes Section Notes 07/04/2024 Attention-deficit hyperactivity disorder, combined type (ICD-10 - F90.2) 04/18/2025 Attention-deficit hyperactivity disorder, combined type (ICD-10 - F90.2) 05/30/2025 Generalized anxiety disorder (ICD-10 - F41.1) 04/18/2025 Attention-deficit hyperactivity disorder, combined type (ICD-10 - F90.2) 03/18/2025 Primary insomnia (ICD-10 - F51.01) 03/17/2025 Attention-deficit hyperactivity disorder, combined type (ICD-10 - F90.2) 03/07/2025 Generalized anxiety disorder (ICD-10 - F41.1) 02/20/2025 Primary insomnia (ICD-10 - F51.01) 02/13/2025 Primary insomnia (ICD-10 - F51.01) 01/13/2025 Primary insomnia (ICD-10 - F51.01) 01/12/2025 Attention-deficit hyperactivity disorder, combined type (ICD-10 - F90.2) 12/05/2024 Attention-deficit hyperactivity disorder, combined type (ICD-10 - F90.2) 11/20/2024 Encounter for screening for cardiovascular disorders (ICD-10 - Z13.6) 10/28/2024 Attention-deficit hyperactivity disorder, combined type (ICD-10 - F90.2) 09/16/2024 Attention-deficit hyperactivity disorder, combined type (ICD-10 - F90.2) 08/28/2024 Generalized anxiety disorder (ICD-10 - F41.1) 08/08/2024 Attention-deficit hyperactivity disorder, combined type (ICD-10 - F90.2) 07/03/2024 Attention-deficit hyperactivity disorder, combined type (ICD-10 - F90.2) 08/28/2024 Attention-deficit hyperactivity disorder, combined type (ICD-10 - F90.2) 11/20/2024 Negative depression screening (ICD-10 - Z13.31) 01/12/2025 Primary insomnia (ICD-10 - F51.01) 02/13/2025 Attention-deficit hyperactivity disorder, combined type (ICD-10 - F90.2) 02/20/2025 Major depressive disorder, recurrent, mild (ICD-10 - F33.0) 03/07/2025 Attention-deficit hyperactivity disorder, combined type (ICD-10 - F90.2) 05/30/2025 Attention-deficit hyperactivity disorder, combined type (ICD-10 - F90.2) 05/30/2025 Major depressive disorder, recurrent, mild (ICD-10 - F33.0) 03/07/2025 Major depressive disorder, recurrent, mild (ICD-10 - F33.0) 02/20/2025 Generalized anxiety disorder (ICD-10 - F41.1) 08/28/2024 Major depressive disorder, recurrent, mild (ICD-10 - F33.0) 11/20/2024 Generalized anxiety disorder (ICD-10 - F41.1) 08/28/2024 Panic disorder [episodic paroxysmal anxiety] without agoraphobia (ICD-10 - F41.0) 11/20/2024 Attention-deficit hyperactivity disorder, combined type (ICD-10 - F90.2) 03/07/2025 Panic disorder [episodic paroxysmal anxiety] without agoraphobia (ICD-10 - F41.0) 05/30/2025 Panic disorder [episodic paroxysmal anxiety] without agoraphobia (ICD-10 - F41.0) 05/30/2025 Primary insomnia (ICD-10 - F51.01) 03/07/2025 Primary [...] Plan: - Continue current psychiatric medications: sertraline, methylphenidate, zolpidem - Encouraged patient to attend scheduled therapy appointment with Letty Glass at [facility] in [place] - Advised patient to continue hosting [employer] to foster sense of community - Recommended [...] opposing political views. Plan: - Explore healthy boundary-setting techniques in therapy - Discuss strategies for [...] efforts have been made to correct them. 05/30/2025 Luis Manuel Hopkins presents with worsening ADHD symptoms including difficulty concentrating, task initiation problems, and emotional dysregulation despite current medication treatment. ADHD with inadequate symptom control Assessment: Patient reports significant functional impairment with inability to concentrate on study work or watch TV shows, experiencing restless paralysis where she knows tasks need completion but cannot initiate them. Simple activities like making homework or taking showers feel overwhelming. She describes having to trick her brain to accomplish tasks. Current dose of 36 mg is considered relatively low, and symptoms suggest need for medication optimization. Emotional symptoms including increased crying, mood variability (mad, sad, frustrated, anxious, excited, hopeful) may be related to both ADHD and concurrent stressors. Plan: - Increase Concerta to 54 mg (from current 36 mg dose) - Patient needs refill of current medication Relationship and housing stressors Assessment: Patient is currently living in guest room of shared residence with ex-partner, attempting to minimize interactions. Reports good and bad days with significant financial power imbalance as partner earns twice her income, creating manipulation dynamics. Recent challenges include working on parenting plan with partner who is resistant to paying child support. These stressors may be contributing to worsening ADHD symptoms and emotional dysregulation. Plan: - Continue therapy for ongoing support the note is transcribed using speech recognition software. It is a reflection of a visit with the patient. It might have some inaccuracy, including medication names and transcribing errors, though efforts have been made to correct them. Plan Of Treatment Next Appt Details Provider Name:China Mark Anthony Mccollum, 08/29/2025 04:30:00 PM, [address], [place], [address], Insurance Providers Payer Name Payer Address Payer Phone Subscriber Number Group Number Insured Name Patient Relationship to Insured Coverage Start Date Coverage End Date [employer] Benef[employer] Plan Management [address] [place] [id number] BRIAN HOPKINS Spouse - patient is the [...] 09/05/2019 Ligation of bilateral fallopian tubes ([id number]) 09/05/2019 Endometrial ablation (74056) 2022
--- OUTSIDE RECORDS SUMMARY | 2025-06-11 03:48 | XMS_ITS | Clinical Summary ---
Author Organization [facility] Address [address] [place] [phone] Phone Care Team Providers Care Policy Adviser Name Role Phone Unavailable Unavailable Unavailable Reason for Visit and Chief Complaint EARLY OB U/S Problems Includes: Problems addressed during this encounter and other active Problems All Visits Onset Date Resolved Date Provider Condition S tatus Herpes Simplex 12/31/2012 LESLIE YAP WHNP-BC Active Last Documented On 3 4:14PM ; [facility] Previous Leep 06/29/2012 LESLIE YAP WHNP-BC Active Last Documented On 06/29/2012 12:44PM ; [facility] Note: 07-11-11 - Dr. Garcia ANXIETY STATE NOS 06/10/2011 SANTOS GARCIA M.D. Active Last Documented On 1 3:39PM ; [facility] Depressive Disorder NEC 06/10/2011 SANTOS SANTANA M.D. Active Last Documented On 1 3:45PM ; [facility] Plan of Treatment - THREATENED ABORT-UNSPEC - Last Documented On 08/16/2013 11:48AM ; [facility] U/S @ [facility]/OB or JV U/S: Early OB US Lab: HCG, Serum, Quant Lab: Progesterone - Last Documented On 08/16/2013 11:48AM ; [facility] Pending Tests Order Diagnosis Results Due Ordering P aniyah U/S @ [facility] - OB or JV U/S Early OB US THREATENED ABORT-UNSPEC 08/16/13 IRVIN SANTACRUZ MD Last Documented On 4 11:29AM ; [facility] Lab HCG, Serum, Quant 08/16/13 IRVIN MORALES MD Last Documented On 4 12:02PM ; [facility] Lab Progesterone 08/16/13 IRVIN Hale MD Last Documented On 4 12:02PM ; [facility] Lab PROGESTERONE 08/16/13 IRVIN Hael MD Last Documented On 4 12:02PM ; [facility] Lab HCG, TOTAL, QN 08/16/13 IRVIN LAUREN MD Last Documented On 4 12:02PM ; [facility] Assessments Includes: Assessments from this encounter No Assessments Recorded Medical Equipment - Implanted Devices Includes: Current Devices No Medical Equipment Recorded Medications Includes: Medications discussed during this encounter and other current Medications Current Medications (continue as prescribed) Valtrex 1 GM OR TABS 06/10/2011 Provider: Diagnosis: Last Documented On 1 3:41PM By SEVEN BRANHAM MA ; [facility] Past Medications on file Ortho-Cyclen (28) 0.25-35 MG-MCG OR TABS 12/31/2012 - 06/29/2013 Provider: LESLIE YAP SHO Diagnosis: CONTRACEPT SURVE ILL NOS Last Documented On 3 4:21PM By LESLIE SANCHEZ ; [facility] Triveen-Duo DHA 29-1-200 & 400 MG OR MISC 12/31/2012 - 04/30/2013 Provider: LESLIE SANCHEZ Diagnosis: OTHER FAMILY IVANA NNING ADVICE NEC Last Documented On 3 4:21PM By LESLIE SANCHEZ ; [facility] Medications Administered Includes: Administered Medications from this encounter No Administered Medications Recorded Results Includes: Results discussed during this encounter No Results Recorded For Specified Dates History of Present Illness Includes: History of Present Illness from this encounter No History of Present Illness Recorded Social History No Social History Recorded - Smoking Status Unknown Medical History Includes: Medical History addressed during this encounter No Medical History Recorded Family History Includes: Family History addressed during this encounter No Family History Recorded Review of Systems Includes: Review of Systems from this encounter No Review of Systems Recorded Mental Status Includes: Mental Status from this encounter No Mental Status Recorded Functional Status Includes: Functional Status from this encounter No Functional Status Recorded Physical Exam Includes: Physical Exam from this encounter No Physical Exam Recorded Allergies Includes: Active Allergies No Known Allergies Encounters Encounter Provider Location Date Check-In Time Check-Out Time Diagnosis EARLY OB U/S IRVIN MORALES MD [facility] CRIMINAL INTELLIGENCE ANALYST 4 11:47AM 11:59PM Clinical Notes Includes: Clinical Notes from this encounter No Clinical Notes Recorded
--- OUTSIDE RECORDS SUMMARY | 2025-06-11 03:48 | XMS_ITS ---
Care Plan - [facility] Created on: June 11, 2025 KRISHNA ÁLVAREZ : 1985 Sex: Female Author Organization [facility] Address [address] [place] [phone] Phone Care Team Providers Care Manager Transition Name Role Phone Unavailable Unavailable Unavailable
--- OUTSIDE RECORDS SUMMARY | 2025-06-11 03:48 | XMS_ITS | Clinical Summary ---
Author Organization [facility] Address [address] [place] [phone] Phone Care Team Providers Care Digital Associate Name Role Phone Unavailable Unavailable Unavailable Reason for Visit and Chief Complaint EARLY OB U/S Problems Includes: Problems addressed during this encounter and other active Problems All Visits Onset Date Resolved Date Provider Condition S tatus Herpes Simplex 12/31/2012 LESLIE YAP WHNP-BC Active Last Documented On 3 4:14PM ; [facility] Previous Leep 06/29/2012 LESLIE YAP WHNP-BC Active Last Documented On 06/29/2012 12:44PM ; [facility] Note: 07-11-11 - Dr. Garcia ANXIETY STATE NOS 06/10/2011 SANTOS GARCIA M.D. Active Last Documented On 1 3:39PM ; [facility] Depressive Disorder NEC 06/10/2011 SANTOS SANTANA M.D. Active Last Documented On 1 3:45PM ; [facility] Plan of Treatment No Plan of Treatment Recorded Assessments Includes: Assessments from this encounter No Assessments Recorded Medical Equipment - Implanted Devices Includes: Current Devices No Medical Equipment Recorded Medications Includes: Medications discussed during this encounter and other current Medications Current Medications (continue as prescribed) Valtrex 1 GM OR TABS 06/10/2011 Provider: Diagnosis: Last Documented On 1 3:41PM By SEVEN BRANHAM MA ; [facility] Medications Administered Includes: Administered Medications from this [...] Diagnosis EARLY OB U/S IRVIN MORALES MD [facility] WELT MAKER 4 10:59AM 11:25AM Clinical Notes Includes: Clinical Notes from this encounter No Clinical Notes Recorded
--- OUTSIDE RECORDS SUMMARY | 2025-06-11 03:50 | XMS_ITS | Clinical Summary ---
Author Organization [facility] Care Team Providers Care Director Investment Banking Name Role Phone Unavailable Primary Care Provider Unavailabl e Social History Tobacco Use Types Packs/Day Years Used Date Smoking Tobacco: Never Assessed Comments Unknown Sex and Gender Information Value Date Recorded Sex Assigned at Not on file Legal Sex Female 9:27 AM [employer] Gender Identity Not on file Sexual Orientation Not on file Plan of Treatment Health Maintenance Due Date Last Done Comments Hepatitis C Virus (HCV) Screening 1985 TdaP Immunization 1985 Hepatitis B Immunization (1 of 3 - 19+ 3-dose series) 2002 Pap Smear 2004 Human Papillomavirus (HPV) Immunization (1 - 3-dose SCDM series) 2010 Cervical Cancer Screening (CCS) 2013 HPV/Cotest 2013 Influenza Immunization (#1) 02/24/202502/25, 03/29/2017, 04/29/2015 SARS-COV-2 Immunization ( season) 2025 07/28/2020, 06/30/2020 Respiratory Syncytial Virus (RSV) Immunization [...]
--- OUTSIDE RECORDS SUMMARY | 2025-06-11 03:50 | XMS_ITS | Data Portability ---
Author Organization [place] [facility] [place], Main Office Address [address] [place] [address] Assessment No assessment recorded. Plan of Treatment Reminders Order Date Submit Date Provider Last Modified By Organization Details Last Modified Time Details Appointments None recorded. Lab lipid panel, serum 023 023 [facility], [address], [address], 3 13:28:45 CMP, serum or plasma 023 023 [facility], [address], [address], 3 13:28:46 CBC w/ auto diff 023 023 [facility], [address], [address], 3 13:28:48 TSH + free T4, serum 023 023 [facility], [address], [address], 3 13:28:44 HbA1c (hemoglob in A1c), blood 023 023 [facility], [address], [address], 3 13:28:47 insulin, serum 023 023 [facility], [address] [facility] [address], [place], [address], 13:28:49 Referral None recorded. Procedures None recorded. Surgeries None recorded. Imaging None recorded. Medication Orders Bactrim DS 800 mg-160 mg tablet 023 023 [id number], [address] [facility], [place], [place], [phone], 10:05:36 Patient TargetsNo targets recorded. Patient InstructionsNo [...] Third trime ster 0.43- 2.91 Not Available [facility] [address], [address], 10/27/2022 13:28:44 10/27/19 23 10/27/2022 TSH+F REE T4 T4, free 0.8 NG/dL 0.8-1. 8 normal Not Available [facility] [address] [place], [address], 10/27/2022 13:28:44 10/27/19 23 10/27/2022 LIPID PANEL WITH RATIO S cholesterol, total 200 mg/dL <200 high Not Available [facility] [address], [address], 10/27/2022 13:28:45 10/27/19 23 10/27/2022 LIPID PANEL WITH RATIO S HDL cholesterol 73 mg/dL > or = 50 normal Not Available [facility] [address], [address], 10/27/2022 13:28:45 10/27/19 23 10/27/2022 LIPID PANEL WITH RATIO S triglyceride s 71 mg/dL <150 normal Not Available [address], [address], 10/27/2022 13:28:45 10/27/19 23 10/27/2022 LIPID PANEL [...] 9): 2061- 2068 (http ://ed ucati on.Qu estTravelPi. com/f aq/FA Q164) Not Available [address], [address], 10/27/2022 13:28:45 10/27/19 23 10/27/2022 LIPID PANEL WITH RATIO S chol/HDLC ratio 2.7 (calc ) <5.0 normal Not Available [address], [address], 10/27/2022 13:28:45 10/27/19 23 10/27/2022 LIPID PANEL WITH RATIO S LDL/HDL ratio 1.5 (calc ) Below avera ge Risk: <2.34 [place] ge Risk: 2.35- 4.12 Moder ate Risk: 4.13- 5.56 High Risk: >5.57 Not Available [address], [address], 10/27/2022 13:28:45 10/27/19 23 10/27/2022 LIPID PANEL WITH RATIO S non HDL cholesterol 127 mg/dL _(magalis c) <130 normal For patie nts with diabe darline plus 1 major ASCVD risk facto r, treat ing to a non-H DL-C goal of <100 mg/dL (LDL- C of <70 mg/dL ) is consi dered a thera peuti c optio n. Not Available [address] [address] [place], [address], 10/27/2022 13:28:45 10/27/19 23 10/27/2022 COMPR EHENS ZABRINA METAB OLIC PANEL glucose 86 mg/dL 65-99 normal Fasti ng refer ence inter han Not Available [address] [address] [place], [address], 10/27/2022 13:28:46 10/27/19 23 10/27/2022 COMPR EHENS ZABRINA METAB OLIC PANEL urea nitrogen (BUN) 12 mg/dL 7-25 normal Not Available [facility] [address] [address] [place], [address], 10/27/2022 13:28:46 10/27/19 23 10/27/2022 COMPR EHENS ZABRINA METAB OLIC PANEL creatinine 0.70 mg/dL 0.50-0 .97 normal Not Available [address] [address] [place], [address], 10/27/2022 13:28:46 10/27/19 23 10/27/2022 COMPR EHENS [...] 5Fcal culat or Not Available [facility] [address], [address], 10/27/2022 13:28:46 10/27/19 23 10/27/2022 COMPR EHENS ZABRINA METAB OLIC PANEL BUN/creatini ne ratio NOT APPLIC ABLE (calc ) 6-22 Not Available [address], [address], 10/27/2022 13:28:46 10/27/19 23 10/27/2022 COMPR EHENS ZABRINA METAB OLIC PANEL sodium 137 mmol/ L 135-14 6 normal Not Available [address], [address], 10/27/2022 13:28:46 10/27/19 23 10/27/2022 COMPR EHENS ZABRINA METAB OLIC PANEL potassium 3.9 mmol/ L 3.5-5. 3 normal Not Available [address], [address], 10/27/2022 13:28:46 10/27/19 23 10/27/2022 COMPR EHENS ZABRINA METAB OLIC PANEL chloride 104 mmol/ L 98-110 normal Not Available [address], [address], 10/27/2022 13:28:46 10/27/19 23 10/27/2022 COMPR EHENS ZABRINA METAB OLIC PANEL carbon dioxide 26 mmol/ L 20-32 normal Not Available [address], [address], 10/27/2022 13:28:46 10/27/19 23 10/27/2022 COMPR EHENS ZABRINA METAB OLIC PANEL calcium 9.2 mg/dL 8.6-10 .2 normal Not Available [address], [address], 10/27/2022 13:28:46 10/27/19 23 10/27/2022 COMPR EHENS ZABRINA METAB OLIC PANEL protein, total 7.1 g/dL 6.1-8. 1 normal Not Available [address], [address], 10/27/2022 13:28:46 10/27/19 23 10/27/2022 COMPR EHENS ZABRINA METAB OLIC PANEL albumin 4.3 g/dL 3.6-5. 1 normal Not Available [address], [address], 10/27/2022 13:28:46 10/27/19 23 10/27/2022 COMPR EHENS ZABRINA METAB OLIC PANEL globulin 2.8 g/dL_ (calc ) 1.9-3. 7 normal Not Available [address], [address], 10/27/2022 13:28:46 10/27/19 23 10/27/2022 COMPR EHENS ZABRINA METAB OLIC PANEL albumin/glob ulin ratio 1.5 (calc ) 1.0-2. 5 normal Not Available [address], [address], 10/27/2022 13:28:46 10/27/19 23 10/27/2022 COMPR EHENS ZABRINA METAB OLIC PANEL bilirubin, total 0.9 mg/dL 0.2-1. 2 normal Not Available [address], [address], 10/27/2022 13:28:46 10/27/19 23 10/27/2022 COMPR EHENS ZABRINA METAB OLIC PANEL alkaline phosphatase 64 U/L 31-125 normal Not Available [facility] [address], [address], 10/27/2022 13:28:46 10/27/19 23 10/27/2022 COMPR EHENS ZABRINA METAB OLIC PANEL AST 18 U/L 10-30 normal Not Available [address] [place], [address], 10/27/2022 13:28:46 10/27/19 23 10/27/2022 COMPR EHENS ZABRINA METAB OLIC PANEL ALT 17 U/L 6-29 normal Not Available [facility] [address] [address] [place], [address], 10/27/2022 13:28:46 10/27/19 23 10/27/2022 HEMOG LOBIN [...] Care in Diabe darline(A DA). Not Available [facility] [address] [address] [place], [address], 10/27/2022 13:28:47 10/27/19 23 10/27/2022 CBC (INCL UDES DIFF/ PLT) white blood cell count 9.3 thous and/u L 3.8-10 .8 normal Not Available [facility] [address] [place], [address], 10/27/2022 13:28:48 10/27/19 23 10/27/2022 CBC (INCL UDES DIFF/ PLT) red blood cell count 4.49 bela on/uL 3.80-5 .10 normal Not Available [address], [address], 10/27/2022 13:28:48 10/27/19 23 10/27/2022 CBC (INCL UDES DIFF/ PLT) hemoglobin 13.5 g/dL 11.7-1 5.5 normal Not Available [address], [address], 10/27/2022 13:28:48 10/27/1910/27/2022 CBC (INCL UDES DIFF/ PLT) hematocrit 40.4 % 35.0-4 5.0 normal Not Available [address], [address], 10/27/2022 13:28:48 10/27/19 23 10/27/2022 CBC (INCL UDES DIFF/ PLT) MCV 90.0 fL 80.0-1 00.0 normal Not Available [address], [address], 10/27/2022 13:28:48 10/27/1910/27/2022 CBC (INCL UDES DIFF/ PLT) MCH 30.1 pg 27.0-3 3.0 normal Not Available [address], [address], 10/27/2022 13:28:48 10/27/19 23 10/27/2022 CBC (INCL UDES DIFF/ PLT) MCHC 33.4 g/dL 32.0-3 6.0 normal Not Available [address], [address], 10/27/2022 13:28:48 10/27/19 23 10/27/2022 CBC (INCL UDES DIFF/ PLT) RDW 13.5 % 11.0-1 5.0 normal Not Available [address], [address], 10/27/2022 13:28:48 10/27/19 23 10/27/2022 CBC (INCL UDES DIFF/ PLT) platelet count 281 thous and/u L 140-40 0 normal Not Available [address], [address], 10/27/2022 13:28:48 10/27/19 23 10/27/2022 CBC (INCL UDES DIFF/ PLT) MPV 9.3 fL 7.5-12 .5 normal Not Available [address], [address], 10/27/2022 13:28:48 10/27/19 23 10/27/2022 CBC (INCL UDES DIFF/ PLT) absolute neutrophils 5552 cells /uL 1500-7 800 normal Not Available [address], [address], 10/27/2022 13:28:48 10/27/19 23 10/27/2022 CBC (INCL UDES DIFF/ PLT) absolute lymphocytes 3162 cells /uL 850-39 00 normal Not Available [address], [address], 10/27/2022 13:28:48 10/27/19 23 10/27/2022 CBC (INCL UDES DIFF/ PLT) absolute monocytes 512 cells /uL 200-95 0 normal Not Available [address], [address], 10/27/2022 13:28:48 10/27/19 23 10/27/2022 CBC (INCL UDES DIFF/ PLT) absolute eosinophils 28 cells /uL 15-500 normal Not Available [address], [address], 10/27/2022 13:28:48 10/27/19 23 10/27/2022 CBC (INCL UDES DIFF/ PLT) absolute basophils 47 cells /uL 0-200 normal Not Available [address], [address], 10/27/2022 13:28:48 10/27/19 23 10/27/2022 CBC (INCL UDES DIFF/ PLT) neutrophils 59.7 % normal Not Available [address], [address], 10/27/2022 13:28:48 10/27/19 23 10/27/2022 CBC (INCL UDES DIFF/ PLT) lymphocytes 34.0 % normal Not Available [address], [address], 10/27/2022 13:28:48 10/27/19 23 10/27/2022 CBC (INCL UDES DIFF/ PLT) monocytes 5.5 % normal Not Available [address], [address], 10/27/2022 13:28:48 10/27/19 23 10/27/2022 CBC (INCL UDES DIFF/ PLT) eosinophils 0.3 % normal Not Available [address], [address], 10/27/2022 13:28:48 10/27/19 23 10/27/2022 CBC (INCL UDES DIFF/ PLT) basophils 0.5 % normal Not Available [facility] [address], [address], 10/27/2022 13:28:48 10/27/19 23 10/27/2022 INSUL IN insulin 13.5 uIU/m L normal Refer ence Range < or = 18.4 Risk: Optim al < or = 18.4 Moder ate NA High >18.4 Adult cardi ovasc ular event risk categ ory cut point s (opti mal, moder ate, high) are based on Insul in Refer ence Inter han studi es perfo rmed at [facility] s in 2021. Not Available [facility] [address] [address], [place], [address], 10/27/2022 13:28:48 10/03/19 21 10/02/2020 US, pelvi s, trans abdom inal + trans vagin al No observ ation record ed. [id number] [facility] [address] [place], [address], 08/24/2022 03:00:42 10/03/19 21 10/02/2020 US, obste tric, trans vagin al No observ ation record ed. [id number] [facility] [address] [place], [address], 08/24/2022 03:00:42 10/03/19 21 10/02/2020 US, trans vagin al [facility] [address] [place] [address] [phone] Patien t Name: KRISHNA HOPKINS Access ion #: [id number] Sex: F : 1984 2 Locati [...] to each ovary. Page 1 of 2 [facility] mayito Name: KRISHNA HOPKINS ion #: [id number] Sex: F : 1984 2 Exam [...] DO (CT) (CT) Page 2 of 2 [id number] [facility] (Imaging) [address] [place], [address], 08/24/2022 03:00:42 Result Notes None recorded. Problems Name Problem SNOMED Code Status Onset Date Resolution Date Notes Provider Name and Address Organization Details Recorded Time Past history of miscarriag e 529833089 Active Not Available [facility] 3 02:53:22 Mood swings 96285835 Active Not Available [facility] 3 02:53:22 Bruxism 289570611 Active Not Available [facility] 3 02:53:22 Insomnia 811366351 Active Not Available [facility] 3 02:53:22 Asthma 518369386 Active Not Available [facility] 3 02:53:22 Benign essential hypertensi on complicati ng , childbirth and the puerperium - not delivered 343413094 Completed Not Available [facility] 3 02:53:22 Mixed anxiety and depressive disorder 200749210 Active RADHA Portillo null, [place] [facility] [place] [employer] [facility] 3 11:50:38 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- plan eval pp per PCP Not Available [facility] 3 02:53:22 Vaginal odor 152515038 Active Not Available [facility] 3 02:53:22 Hyperemesi s 915534072 Completed Not Available [facility] 3 02:53:22 Anxiety 40555039 Active RADHA Portillo null, [facility] 3 11:50:53 Dyspareuni a 41476351 Active Not Available [facility] 3 02:53:22 Acute sinusitis 25499632 Active 2021 Not Available [facility] 3 02:53:22 Acute right otitis media 367932063 Active [address] [facility], [facility] [address], [place], [address] , [facility] 3 10:03:29 Problem Notes None recorded. Procedures Surgical History Date Name Laterality Status Provider Name and Address Organization Details Recorded Time 2 dilation and curettage completed RADHA Portillo [facility] 10/20/2022 09:31:37 0 COAL SAMPLE TESTER Surgery completed Not Available [facility] 08/25/19 02:47:42 0 Date of Last Pap Smear completed Not Available [facility] 08/24/2022 02:47:39 COAL SAMPLE TESTER Surgery completed Not Available [facility] 08/24/2022 02:47:42 Imaging Results None recorded. Procedure [...] enidate ER 10 mg capsule,ext ended release mblacfzu22- 50 active Not Available Not Available Not [...] Not Available No t Available Se- 19 Chewable 29 mg iron-1 mg tablet Take 1 tablet every day by oral route. active Not Available Not Available No t Available ZzzQuil takes one daily 2015 active Not Available Not Available Not Avai lable Nasacort 55 mcg nasal spray aerosol 2 sprays each nostril each evening. 02/28 completed Not Available Not Available Not Available Fluvirin 7499-8617(P F) 45 mcg (15 mcg x3)/0.5 mL intramuscul ar syringe active Not Available Not Available N ot Available albuterol sulfate 90 mcg/actuati on breath activated powder inhaler Inhale 2 puffs every 4 hours by inhalatio n route as needed. 02/28 completed Not Available Not Available Not Available Fluzone Quad 8835-1527 60 mcg (15 mcg x 4)/0.5 mL IM suspension 12/28 completed Not Available Not Available Not Available Fluzone Quad 5937-6504 60 mcg (15 mcg x 4)/0.5 mL [...] 09/22/2020 45.7 kg/m2 160.02 cm 98.3 [degF] 695401. 83 g 122/74 mm[Hg] Not Available [facility] 3 02:50:39 Date Recorded Body mass index (BMI) Body height Body temperature Body weight Systolic And Diastolic Provider Name and Address Organization Details Last Updated DateTime 10/20/2020 46.4 kg/m2 160.02 cm 97.3 [degF] 032964. 2 g 126/78 mm[Hg] Not Available [facility] 3 02:50:39 Date Recorded Body height Body temperature Body mass index (BMI) Body weight Respiratory rate Oxygen saturation Heart rate Systolic And Diastolic Provider Name and Address Organization Details Last Updated DateTime 3 160.02 cm 98 [degF] 37.4 kg/m2 08980.9 9 g 16 /min 98 % 78 /min 128/80 mm[Hg] RADHA Portillo - [place] [facility] 3 09:33:06 Date Recorded Body mass index (BMI) Body height Oxygen saturation Heart rate Respiratory rate Body temperature Body weight Systolic And Diastolic Provider Name and Address Organization Details Last Updated DateTime 1 46.5 kg/m2 160.02 cm 96 % 89 /min 16 /min 98 [degF] 855611. 64 g 128/82 mm[Hg] Not Available [facility] 3 02:50:39 Date Recorded Body mass index (BMI) Body height Oxygen saturation Heart rate Body temperature Body weight Systolic And Diastolic Provider Name and Address Organization Details Last Updated DateTime 1 46.6 kg/m2 160.02 cm 98 % 80 /min 98 [degF] 222036. 87 g 120/80 mm[Hg] Not Available [facility] 3 02:50:39 Social History Question Answer Notes LastModified by Organizat ion Details LastModified Time Tobacco Smoking Status Never Smoker [facility] 10/20/2022 09:26:28 What Is Your Level Of Caffeine Consumption? Moderate [id number] Information not available 08/24/2022 How Much Tobacco Do You Chew? None [id number] Information not available 08/24/2022 In The 14 [...] Type Of Diet Are You Following? REGULAR [id number] Information not available 08/24/2022 Which Illicit Or [...] How Much Tobacco Do You Smoke? No [id number] Information not available 08/24/2022 Do You Use [...] is your level of alcohol consumption? Occasional [id number] Information not available 08/24/2022 Do you or have you ever used smokeless tobacco? Never used smokeless tobacco [id number] Information not available 08/24/2022 Are you currently employed? 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 Never used electronic cigarettes Information not available 10/20/2022 What is your exercise level? Occasional [id number] Information not available 08/24/2022 Mental Status None recorded. Family History Relationship Description Onset Age of this Age Resolved Age Notes LastModified by Organization Details LastModified Time Father Carcinoma of prostate Not available 2022 09:26:28 Unspecified Relation Hypertensive disorder [id number] Not available 08/24/2022 02:47:46 Unspecified Relation Myocardial infarction [id number] Not available 08/24/2022 02:47:46 Mother Malignant neoplasm of skin [id number] Not available 10/20 09:33:50 Notes:no new Medical History Condition Response ANXIETY DISORDER Y ASTHMA Y OTHER # 1 Y URINARY/BLADDER/KIDNEY PROBLEMS Y SLEEP DISORDER Y DEPRESSION (INCLUDING POST [...] 50 mcg/0.25mL dose 1 completed Not Available [facility] 08/24/2022 03:00:05 COVID-19, mRNA, LNP-S, PF, 100 mcg/0.5mL dose or 50 mcg/0.25mL dose 1 completed Not Available [facility] 08/24/2022 03:00:06 influenza, unspecified formulation 0 completed Not Available [facility] 08/24/2022 03:00:06 influenza, unspecified formulation 5 completed Not Available [facility] 08/24/2022 03:00:06 influenza, unspecified formulation 7 completed Not Available [facility] 08/24/2022 03:00:06 Past Encounters Encounter ID Performer Location Encounter Start Date Encounter Closed Date Diagnosis/Indication Diagnosis SNOMED-CT Code Diagnosis ICD10 Code Diagnosis IMO Codes Diagnosis Note [id number] [facility] _ATHENA_M IGRATION_ DEFAULT_1 _1 , 09/22/2020 00:00:00 09/22/2020 09:55:33 [id number] [facility] _ATHENA_M IGRATION_ DEFAULT_1 _1 , 10/20/2020 00:00:00 10/20/2020 17:55:52 [id number] BRAYDEN Hill [facility] [address] [place] [address] 11/02/2020 00:00:00 11/20/2020 01:32:32 [id number] BRAYDEN Hill [facility] [address] [place] [address] 05/27/2021 00:00:00 06/22/2021 23:53:16 [id number] BRAYDEN Hill [facility] [address] [place] [address] 10/20/2022 09:21:58 10/20/2022 10:07:40 Adult health examination 964121698 Z00.00 well exam completed. labs ordered Cholesterol screening 27 4682109 Z13.220 Diabetes m ellitus screening 338671370 Z13.1 Long-term drug therapy 158781302 Z79.899 Acute righ t otitis media 755524714 H66.91 rx for bactrim DS bid course since augmentin did not resolve infection after 10 day course from urgent care Body mass index 30+ - obesity 087966803 Z68.37 Health Concerns Section Related Observation LastModified by Organization Detai ls LastModified Time None Recorded Concern Status LastModified by Organization Details LastModified Time None Recorded Advance Directives Directive None Recorded Payers Insurance Date Sequence Insurance Name Policy Number Policy Simons Covered Member ID Simons Member ID Guarantor Name 02/20/2023 1 [facility] [employer] [facility] (PPO) [id number] James Hopkins [id number] Krishna Hopkins 10/20/2022 1 [place] [id number] James Sandeep [id number] Krishna Hopkins Notes Date Note Type Note [...] with psychiatry managing. Wellness BRAYDEN Hill [address] [facility], [facility] [address], [place], [address], [facility] [employer] [facility] [employer] 10/20/2022 13:19:37 OBGyn Episode No OBEpisode recorded.
--- OUTSIDE RECORDS SUMMARY | 2025-06-11 03:50 | XMS_ITS | Clinical Summary ---
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
--- OUTSIDE RECORDS SUMMARY | 2025-06-11 03:50 | XMS_ITS | Clinical Summary ---
Author Organization [facility] Address [address] [place] [address] Care Team Providers Care Police Chief Deputy Name Role Phone No, Pcp SENIOR MAJOR GIFTS OFFICER Primary Care Provider Unavailabl e Social History Tobacco Use Types Packs/Day Years Used Date Smoking Tobacco: Never Assessed Comments Unknown Sex and Gender Information Value Date Recorded Sex Assigned at Not on file Legal Sex Female 10:56 AM EST Gender Identity Not on file Sexual Orientation Not on file Plan of Treatment Not on file Medical Devices Not on file [place] [address] [address] [address] Care Teams Police Chief Deputy Relationship Specialty Start Date End Date No, Pcp, SENIOR MAJOR GIFTS OFFICER N/A Do not use PCP - General Family Medicine 05/27/20
--- OUTSIDE RECORDS SUMMARY | 2025-06-11 03:50 | XMS_ITS | Clinical Summary ---
Author Organization [facility] Address [address] [place] [phone] Phone Care Team Providers Care Support Architect Name Role Phone Unavailable Unavailable Unavailable Reason for Visit and Chief Complaint * PHONE CALL Problems Includes: Problems addressed during this encounter and other active Problems All Visits Onset Date Resolved Date Provider Condition S tatus Herpes Simplex 12/31/2012 LESLIE YAP WHNP-BC Active Last Documented On 3 4:14PM ; [facility] Previous Leep 06/29/2012 LESLIE YAP WHNP-BC Active Last Documented On 06/29/2012 12:44PM ; [facility] Note: 07-11-11 - Dr. Garcia ANXIETY STATE NOS 06/10/2011 SANTOS GARCIA M.D. Active Last Documented On 1 3:39PM ; [facility] Depressive Disorder NEC 06/10/2011 SANTOS SANTANA M.D. Active Last Documented On 1 3:45PM ; [facility] Plan of Treatment - OTHER - Last Documented On 08/19/2013 10:00AM ; [facility] PHY ORDER/COMMENT yes, please draw another quant HCG while she's here today, thanks - Last Documented On 08/19/2013 10:00AM ; [facility] Assessments Includes: Assessments from this encounter No Assessments Recorded Medical Equipment - Implanted Devices Includes: Current Devices No Medical Equipment Recorded Medications Includes: Medications discussed during this encounter and other current Medications Current Medications (continue as prescribed) Valtrex 1 GM OR TABS 06/10/2011 Provider: Diagnosis: Last Documented On 1 3:41PM By SEVEN BRANHAM MA ; [facility] Past Medications on file Ortho-Cyclen (28) 0.25-35 MG-MCG OR TABS 12/31/2012 - 06/29/2013 Provider: LESLIE SANCHEZ Diagnosis: CONTRACEPT SURVE ILL NOS Last Documented On 3 4:21PM By LESLIE SANCHEZ ; [facility] Milad DHA 29-1-200 & 400 MG OR MISC 12/31/2012 - 04/30/2013 Provider: LESLIE SANCHEZ Diagnosis: OTHER FAMILY IVANA NNING ADVICE NEC Last Documented On 3 4:21PM By LESLIE YAP TADEO ; [facility] Medications Administered Includes: Administered [...] Diagnosis * PHONE CALL IRVIN MORALES MD [facility] BORING MACHINE SET UP OPERATOR JIG 4 9:12AM 11:59PM Clinical Notes Includes: Clinical Notes from this encounter No Clinical Notes Recorded
--- OUTSIDE RECORDS SUMMARY | 2025-06-11 03:50 | XMS_ITS | Clinical Summary ---
Author Organization [facility] Address [address] [place] [phone] Phone Care Team Providers Care Billet Recorder Name Role Phone Unavailable Unavailable Unavailable Reason for Visit and Chief Complaint WALK IN LAB Problems Includes: Problems addressed during this encounter and other active Problems All Visits Onset Date Resolved Date Provider Condition S tatus Herpes Simplex 12/31/2012 LESLIE YAP WHNP-BC Active Last Documented On 3 4:14PM ; [facility] Previous Leep 06/29/2012 LESLIE YAP WHNP-BC Active Last Documented On 06/29/2012 12:44PM ; [facility] Note: 07-11-11 - Dr. Garcia ANXIETY STATE NOS 06/10/2011 SANTOS GARCIA M.D. Active Last Documented On 1 3:39PM ; [facility] Depressive Disorder NEC 06/10/2011 SANTOS SANTANA M.D. Active Last Documented On 1 3:45PM ; [facility] Plan of Treatment Pending Tests Order Diagnosis Results Due Ordering P rovider Lab HCG, Serum, Quant 08/19/13 IRVIN MORALES MD Last Documented On 4 10:46AM ; [facility] Lab Progesterone 08/19/13 IRVIN Hale MD Last Documented On 4 10:46AM ; [facility] Lab PROGESTERONE 08/19/13 IRVIN Hale MD Last Documented On 4 10:46AM ; [facility] Lab HCG, TOTAL, QN 08/19/13 IRVIN LAUREN MD Last Documented On 4 10:46AM ; [facility] Assessments Includes: Assessments from this encounter No Assessments Recorded Medical Equipment - Implanted Devices Includes: Current Devices No Medical Equipment Recorded Medications Includes: Medications discussed during this encounter and other current Medications Current Medications (continue as prescribed) Valtrex 1 GM OR TABS 06/10/2011 Provider: Diagnosis: Last Documented On 1 3:41PM By SEVEN BRANHAM MA ; [facility] Medications Administered Includes: Administered [...] Location Date Check-In Time Check-Out Time Diagnosis WALK IN LAB IRVIN MORALES MD [facility] COAL EQUIPMENT OPERATOR 4 10:04AM 11:59PM Clinical Notes Includes: Clinical Notes from this encounter No Clinical Notes Recorded
--- OUTSIDE RECORDS SUMMARY | 2025-06-11 03:50 | XMS_ITS ---
Author Organization [facility] Address [address] [place] [phone] Phone Care Team Providers Care Utility Division Project Manager Name Role Phone Unavailable Unavailable Unavailable Problems Includes: Active, inactive, and resolved Problems All Visits Onset Date Resolved Date Provider Condition S tatus Herpes Simplex 12/31/2012 LESLIE YAP WHNP-BC Active Last Documented On 3 4:14PM ; [facility] Previous Leep 06/29/2012 LESLIE YAP WHNP-BC Active Last Documented On 06/29/2012 12:44PM ; [facility] Note: 07-11-11 - Dr. Garcia ANXIETY STATE NOS 06/10/2011 SANTOS GARCIA M.D. Active Last Documented On 1 3:39PM ; [facility] Depressive Disorder NEC 06/10/2011 SANTOS SANTANA M.D. Active Last Documented On 1 3:45PM ; [facility] Plan of Treatment Findings Encounter Date Ordered a colposcopy CONSULTATION with SANTOS GARCIA M.D. 06/10/2011 Last Documented On 1 4:12PM ; [facility] Instructions to patient Instructions for patient : B reast Self Exam discussed Last Documented On 3 12:43PM ; [facility] Instructions for patient ER if dizzy, vomiting or light-headed due to heavy bleeding Last Documented On 3 1:02PM ; [facility] Instructions for patient ER if bleeding through reg. sized pad/tampon < 1 hour Last Documented On 3 1:02PM ; [facility] Instructions for patient : p atient is to keep a menstrual diary to help with further evaluation and treatment Last Documented On 3 1:02PM ; [facility] Lose weight Last Documented On 3 12:46PM ; [facility] Safe sex counseling Last Documented On 3 12:46PM ; [facility] Education and Decision Aids were provided during visit for: Patient counseling : discuss ed with patient importance of f/u re: increased risks of cervical cancer Last Documented On 3 4:05PM ; [facility] Patient counseling : discuss ed with patient importance of f/u re: increased risks of cervical cancer Last Documented On 3 12:46PM ; [facility] Patient Education: Daily magalis cium and vitamin D Last Documented On 3 12:43PM ; [facility] Patient Education: weight be aring exercise Last Documented On 3 12:43PM ; [facility] control consent review ed and signed Last Documented On 3 12:46PM ; [facility] INFORMED CONSENT DISCUSSION: Prior to the procedure the risks of LEEP were discussed with the patient, including but not limited to bleeding (both during the procedure and in the first 2 weeks following), infection, cervical stenosis, and inadequate margins requiring a repeat procedure. The benefits of obtaining excisional biopsy results and possible resolution of cervical dysplasia were communicated. The alternatives of watchful waiting with repeat colposcopy in two months, or cone biopsy in the ambulatory surgery center were discussed. Patient expressed understanding of the above and consented to the procedure Last Documented On 2 3:31PM ; [facility] INFORMED CONSENT DISCUSSION: Colposcopy was discussed in detail including risk of post procedure bleeding. Patient is not to have intercourse for 2 weeks following the procedure. Patient expressed understanding of the above and consented to the procedure Last Documented On 1 11:57AM ; [facility] INFORMED CONSENT DISCUSSION: Colposcopy was discussed in detail including risk of post procedure bleeding. Patient is not to have intercourse for 5 days following the procedure. Patient expressed understanding of the above and consented to the procedure Last Documented On 1 4:08PM ; [facility] Assessments Includes: Assessments for all patient encounters Findings Encounter Date Assessment of abnormal Pap s mear of cervix RE-PAP with LESLIE SANCHEZ 12/31/2012 Last Documented On 3 4:21PM ; [facility] Assessment of abnormal Pap s mear: high grade squamous intraepithelial lesion present RE-PAP with LESLIE YAP [facility] 12/31/2012 Last Documented On 3 4:21PM ; [facility] Menometrorrhagia NEW YIELD CLERK EXAM with LESLIE YAP [facility] 06/29/2012 Last Documented On 3 1:15PM ; [facility] NORMAL FEMALE EXAM NEW YIELD CLERK EXAM with LESLIE MCRAE PADILLA [facility] 06/29/2012 Last Documented On 3 1:15PM ; [facility] Assessment of abnormal Pap s mear of cervix CONSULTATION with SANTOS GARCIA M.D. 06/10/2011 Last Documented On 1 4:12PM ; [facility] Instructions Includes: Instructions for all patient encounters Instructions to patient Instructions for patient : B reast Self Exam discussed Last Documented On 3 12:43PM ; [facility] Instructions for patient ER if dizzy, vomiting or light-headed due to heavy bleeding Last Documented On 3 1:02PM ; [facility] Instructions for patient ER if bleeding through reg. sized pad/tampon < 1 hour Last Documented On 3 1:02PM ; [facility] Instructions for patient : p atient is to keep a menstrual diary to help with further evaluation and treatment Last Documented On 3 1:02PM ; [facility] Lose weight Last Documented On 3 12:46PM ; [facility] Safe sex counseling Last Documented On 3 12:46PM ; [facility] Education and Decision Aids were provided during visit for: Patient counseling : discuss ed with patient importance of f/u re: increased risks of cervical cancer Last Documented On 3 4:05PM ; [facility] Patient counseling : discuss ed with patient importance of f/u re: increased risks of cervical cancer Last Documented On 3 12:46PM ; [facility] Patient Education: Daily magalis cium and vitamin D Last Documented On 3 12:43PM ; [facility] Patient Education: weight be aring exercise Last Documented On 3 12:43PM ; [facility] control consent review ed and signed Last Documented On 3 12:46PM ; [facility] INFORMED CONSENT DISCUSSION: Prior to the procedure the risks of LEEP were discussed with the patient, including but not limited to bleeding (both during the procedure and in the first 2 weeks following), infection, cervical stenosis, and inadequate margins requiring a repeat procedure. The benefits of obtaining excisional biopsy results and possible resolution of cervical dysplasia were communicated. The alternatives of watchful waiting with repeat colposcopy in two months, or cone biopsy in the ambulatory surgery center were discussed. Patient expressed understanding of the above and consented to the procedure Last Documented On 2 3:31PM ; [facility] INFORMED CONSENT DISCUSSION: Colposcopy was discussed in detail including risk of post procedure bleeding. Patient is not to have intercourse for 2 weeks following the procedure. Patient expressed understanding of the above and consented to the procedure Last Documented On 1 11:57AM ; [facility] INFORMED CONSENT DISCUSSION: Colposcopy was discussed in detail including risk of post procedure bleeding. Patient is not to have intercourse for 5 days following the procedure. Patient expressed understanding of the above and consented to the procedure Last Documented On 1 4:08PM ; [facility] Medical Equipment - Implanted Devices Includes: Current and historical Devices No Medical Equipment Recorded Medications Includes: Current and historical Medications Current Medications (continue as prescribed) Valtrex 1 GM OR TABS 06/10/2011 Provider: Diagnosis: Last Documented On 1 3:41PM By SEVEN BRANHAM MA ; [facility] Past Medications on file Ortho-Cyclen (28) 0.25-35 MG-MCG OR TABS 12/31/2012 - 06/29/2013 Provider: LESLIE SANCHEZ Diagnosis: CONTRACEPT SURVE ILL NOS Last Documented On 3 4:21PM By LESLIE SANCHEZ ; [facility] Triveen-Duo DHA 29-1-200 & 400 MG OR MISC 12/31/2012 - 04/30/2013 Provider: LESLIE SANCHEZ Diagnosis: OTHER FAMILY IVANA NNING ADVICE NEC Last Documented On 3 4:21PM By LESLIE SANCHEZ ; [facility] Ortho-Cyclen (28) 0.25-35 MG-MCG OR TABS 06/29/2012 - 12/31/2012 Provider: LESLIE YAP SHO Diagnosis: Last Documented On 3 4:20PM By L[facility]LIE YAP [facility] ; [facility] Nortrel 0.5/0.75/1-35 MG-MCG OR TABS 06/10/2011 - 12/31/2012 Provider: Diagnosis: Last Documented On 3 4:12PM By LESLIE YAP [facility] ; [facility] Citalopram Hydrobromide 40 MG OR TABS 06/10/2011 - 09/2012 Provider: Diagnosis: Last Documented On 06/29/2012 1:00PM By SHAHLA GARCIA ; [facility] Xanax 0.25 MG OR TABS 06/10/2011 - 06/29/2012 Provider : Diagnosis: NEEDED Last Documented On 06/29/2012 1:00PM By SHAHLA GARCIA ; [facility] ZyrTEC Allergy 10 MG OR TBDP 06/10/2011 - 12/31/2012 Sandy alvaresder: Diagnosis: Last Documented On 12/31/2012 4:10PM By SHAHLA GARCIA ; [facility] Medications Administered Includes: Administered Medications in patient's chart No Administered Medications Recorded Results Includes: Results from 06/11/2024 through 06/11/2025 No Results Recorded For Specified Dates History of Present Illness History of Present Illness not supported for this document type No History of Present Illness Recorded Social History Description Last Updated Alcohol use occ 06/29/2012 Last Documented On 3 1:15PM ; [facility] In monogamous relationship 06/29/2012 Last Documented On 3 1:15PM ; [facility] Non-smoker 06/29/2012 Last Documented On 3 1:15PM ; [facility] Not using drugs 06/29/2012 Last Documented On 3 1:15PM ; [facility] Sexually active 06/29/2012 Last Documented On 3 1:15PM ; [facility] Sexually active with 1 partners in the l ast year 06/29/2012 Last Documented On 3 1:15PM ; [facility] Social history changed got a job and eng aged 06/29/2012 Last Documented On 3 1:15PM ; [facility] Smoking status : Former smoker 3 Last Documented On 3 1:15PM ; [facility] Age of 1st intercourse was was 13 2010 Last Documented On 1 4:12PM ; [facility] control is being practiced 011 Last Documented On 1 4:12PM ; [facility] Not exercising regularly 06/10/2011 Last Documented On 1 4:12PM ; [facility] Procedures and Surgical History Surgical History Last Updated History of Loop electrode excision of ce rvix (LEEP) 06/29/2012 Last Documented On 3 1:15PM ; [facility] Previous colposcopy 06/29/2012 Last Documented On 3 1:15PM ; [facility] No Bilateral salpingo-oophorectomy 06/10 Last Documented On 1 4:12PM ; [facility] No Breast Biopsy 06/10/2011 Last Documented On 1 4:12PM ; [facility] No Dilation + Curettage 06/10/2011 Last Documented On 1 4:12PM ; [facility] No Ectopic surgery 06/10/2011 Last Documented On 1 4:12PM ; [facility] No Endometrial Ablation 06/10/2011 Last Documented On 1 4:12PM ; [facility] No history of appendectomy 06/10/2011 Last Documented On 1 4:12PM ; [facility] No history of cholecystectomy 06/10/2011 Last Documented On 1 4:12PM ; [facility] No history of total abdominal hysterecto my 06/10/2011 Last Documented On 1 4:12PM ; [facility] No history of tubal ligation 06/10/2011 Last Documented On 1 4:12PM ; [facility] No history of vaginal hysterectomy 06/10 Last Documented On 1 4:12PM ; [facility] No Laparoscopic Hysterectomy 06/10/2011 Last Documented On 1 4:12PM ; [facility] No Ovarian Cystectomy 06/10/2011 Last Documented On 1 4:12PM ; [facility] No Tonsillectomy 06/10/2011 Last Documented On 1 4:12PM ; [facility] Medical History Includes: Medical History in patient's chart Description Last Updated LMP: 06/16/2013 08/16/2013 Last Documented On 4 11:42AM ; [facility] Contraception: Pt just lisa godfrey got and will be trying to get . But for now she is on orthocyclen 12/31/2012 Last Documented On 3 4:21PM ; [facility] Result: normal contraception - ortho cyc dena 12/31/2012 Last Documented On 3 4:21PM ; [facility] Last pap smear date 06/29/2012 12/31/2012 Last Documented On 3 4:21PM ; [facility] Recent change in medical history sees pillow agent Theodorapaulina Tripathi 06/29/2012 Last Documented On 3 1:15PM ; [facility] Result: abnormal hgsil 06/29/2012 Last Documented On 3 1:15PM ; [facility] History of asthma activity induced 06/29 Last Documented On 3 1:15PM ; [facility] History of cervical dysplasia 06/29/2012 Last Documented On 3 1:15PM ; [facility] History of human papilloma virus infecti on 06/29/2012 Last Documented On 3 1:15PM ; [facility] History of anxiety disorder NOS 06/10/20 11 Last Documented On 1 4:12PM ; [facility] History of depression 06/10/2011 Last Documented On 1 4:12PM ; [facility] Family History Includes: Family History in patient's chart Description Last Updated Family history of diabetes mellitus mom boarderline 06/29/2012 Last Documented On 3 1:15PM ; [facility] Family history of hypertension mom 06/29 Last Documented On 3 1:15PM ; [facility] Family history unchanged 06/29/2012 Last Documented On 3 1:15PM ; [facility] No family history of heart disease 06/29 Last Documented On 3 1:15PM ; [facility] No family history of hypercholesterolemi a 06/29/2012 Last Documented On 3 1:15PM ; [facility] No family history of malignant female br east neoplasm 06/29/2012 Last Documented On 3 1:15PM ; [facility] No family history of malignant neoplasm of the large intestine 06/29/2012 Last Documented On 3 1:15PM ; [facility] No family history of malignant neoplasm of the ovary 06/29/2012 Last Documented On 3 1:15PM ; [facility] No family history of uterine cancer 09/2012 Last Documented On 3 1:15PM ; [facility] Review of Systems Review of Systems not supported for this document type No Review of Systems Recorded Mental Status No Mental Status Recorded Functional Status No Functional Status Recorded Physical Exam Physical Exam not supported for this document type No Physical Exam Recorded Allergies Includes: Active, inactive, and resolved Allergies No Known Allergies Clinical Notes Includes: Signed Clinical Notes starting from 07/15/2022 No Clinical Notes Recorded
[2025-06-11 06:05] VITALS: BP 145/84; PULSE 85; RESP 16; TEMP 36.4; O2SAT 99
[2025-06-11] MEDS: LACTATED RINGERS 1,000 ML 30 ML IV CONT (06:20)
[2025-06-11 06:39] LABS: Anion Gap 9 mmol/L (4-12); Blood Urea Nitrogen 14 mg/dL (7-17); Calcium 8.8 mg/dL (8.4-10.2); Carbon Dioxide 22 mmol/L (22-30); Chloride 106 mmol/L (98-107); Estimated CRCL calculation 119 ml/min; Estimated Glomerular Filt Rate > 60; Glucose 93 mg/dL (65-110); Potassium 3.5 mmol/L (3.4-5.0); Sodium 137 mmol/L (137-145)
--- NOTE | 2025-06-11 06:46 | WPDANESEPPF ---
Anes - Initial Pre Proc Eval Procedure: Operation Date: 06/11/25 07:30 Proposed Procedures p Left Carpal Tunnel Release - Marina Osullivan MD Date/Time: 06/11/25 06:46 Surgeon: Marina Osullivan MD Pre Op Diagnosis: left carpal tunnel syndrome Patient Data Age: 39 Gender: F Height: 1.63 m Weight: 125 kg Allergies Allergy/AdvReac Type Severity Reaction Status Date / Time No Known Allergies Allergy Verified 06/09/25 09:43 Home Medications ?Medication ?Instructions ?Recorded ?Confirmed ?Type alprazolam 0.25 mg tablet 0.25 mg PO PRN PRN anxiety 01/12/22 06/09/25 History sertraline 100 mg tablet 100 mg PO HS 01/12/22 06/09/25 History sertraline 50 mg tablet 50 mg PO HS 01/12/22 06/09/25 History trazodone 100 mg tablet 100 mg PO QHS 01/12/22 06/09/25 History zolpidem 10 mg tablet 5 mg PO QHS 01/12/22 06/09/25 History albuterol sulfate 90 mcg/actuation 1 inh inhalation PRN PRN Shortness 03/07/22 06/09/25 History breath activated powder inhaler Of Breath valacyclovir 1 gram tablet 1,000 mg PO DAILY PRN cold sores 01/06/25 06/09/25 History clobetasol 0.05 % topical ointment 1 applic topical PRN 03/25/25 06/09/25 History hydrochlorothiazide 12.5 mg tablet 12.5 mg PO DAILY Leg swelling 03/25/25 06/09/25 History methylphenidate HCl 54 mg 54 mg PO DAILY 06/09/25 06/09/25 History tablet,extended release 24 hr Laboratory Tests 06/11/25 06:23 Sodium 137 mmol/L (137-145) Potassium 3.5 mmol/L (3.4-5.0) Chloride 106 mmol/L (98-107) Carbon Dioxide 22 mmol/L (22-30) Anion Gap 9 mmol/L (4-12) BUN 14 D mg/dL (7-17) Creatinine 0.70 mg/dL (0.7-1.0) Estim Creat Clear Calc 119 ml/min Estimated GFR > 60 (59 - ) Glucose 93 mg/dL (65-110) Calcium 8.8 mg/dL (8.4-10.2) Patient hx anesthesia problems: none Family hx anesthesia problems: none Results Review: All pre-operative results and documents have been reviewed as part of the pre-operative evaluation. [facility] Past Medical History Medical History ADHD Asthma Depression Anxiety disorder Surgical History Surgical History History of hysteroscopy (06/23/22) hscope D&C / Ablation History of excision of mass excision lipoma on upper back Hx LEEP (loop electrosurgical excision procedure), cervix, 2011 H/O bilateral salpingectomy Family History Family History Mother Family history of thyroid disease Family history of obesity Skin cancer Sibling Family history of obesity Depression Father Family history of alcoholism Malignant neoplasm of prostate Social History Social History Smoking status: Never smoker Alcohol intake: current Alcohol use details: 2 PER MONTH Substance use: never Substance use type: does not use Lack of Transportation: No Lack of Food: Never True Current Housing: I Have Housing Concerned About Future Housing: No Difficulty Paying Gas/Electric Bills: No Difficulty Paying for Meds: No Currently Unemployed: No Education: Bachelor's Degree Difficulty w/ Childcare or Family Care: No Living arrangements: with family Additional living arrangements comments: and son Occupation/Education: occupation Additional occupation/education comments: legal asst Gender identity (if verbalized by the patient): Female Sexual Orientation (if Verbalized by the Patient): Straight or Heterosexual Spiritual care concerns: No Anes - Eval Final PreProcedure Day of Procedure 06/11/25 06:46 Patient weight: morbidly obese Heart: regular rate and rhythm Lungs: clear to auscultation Airway: Mallampati scale class III Neurological: alert and oriented Last oral intake: >/= 8 hours ASA classification: III Emergent: no Anesthetic plan: proceed Anesthesia type and monitoring: general LMA and standard monitoring Results Review: All pre-operative results and documents have been reviewed as part of the pre-operative evaluation. Informed Consent: The patient's anesthetic plan and its attendant risks and benefits were discussed with the patient/family/POA. Questions were solicited and answers provided to the satisfaction of the patient/family/POA.
--- NOTE | 2025-06-11 07:16 | P.HP_ITS ---
H&P: HPI History of Present Illness Date/Time: 06/11/25 07:16 Chief Complaint: left carpal tunnel Narrative: Ms. Hopkins is a 39-year-old female with history of bilateral carpal tunnel syndrome who underwent a right carpal tunnel release on April 02 who is here today for scheduled follow-up. She reports that the paresthesias in her hand have essentially resolved, and she no longer has the burning pain in her forearm. She describes a sense of weakness in her hand that is different compared to before surgery but is gradually improving day by day. She has been able to type but is having some difficulty with writing. She reports some difficulty with opposing her fingers, but this is improving gradually. She denies any incisional drainage or fevers. [facility] Past Medical History Medical History ADHD Asthma Depression Anxiety disorder Surgical History Surgical History History of hysteroscopy (06/23/22) hscope D&C / Ablation History of excision of mass excision lipoma on upper back Hx LEEP (loop electrosurgical excision procedure), cervix, 2011 H/O bilateral salpingectomy Family History Family History Mother Family history of thyroid disease Family history of obesity Skin cancer Sibling Family history of obesity Depression Father Family history of alcoholism Malignant neoplasm of prostate Social History Social History Smoking status: Never smoker Alcohol intake: current Alcohol use details: 2 PER MONTH Substance use: never Substance use type: does not use Lack of Transportation: No Lack of Food: Never True Current Housing: I Have Housing Concerned About Future Housing: No Difficulty Paying Gas/Electric Bills: No Difficulty Paying for Meds: No Currently Unemployed: No Education: Bachelor's Degree Difficulty w/ Childcare or Family Care: No Living arrangements: with family Additional living arrangements comments: and son Occupation/Education: occupation Additional occupation/education comments: legal asst Gender identity (if verbalized by the patient): Female Sexual Orientation (if Verbalized by the Patient): Straight or Heterosexual Spiritual care concerns: No Meds Home Medications and Allergies Home Medications ?Medication ?Instructions ?Recorded ?Confirmed ?Type alprazolam 0.25 mg tablet 0.25 mg PO PRN PRN anxiety 0 01/12/22 06/09/25 History sertraline 100 mg tablet 100 mg PO HS 01/12/22 History sertraline 50 mg tablet 50 mg PO HS 01/12/22 5 History trazodone 100 mg tablet 100 mg PO QHS 01/12/2206/11 History zolpidem 10 mg tablet 5 mg PO QHS 01/12/22 5 History albuterol sulfate 90 mcg/actuation 1 inh inhalation NJ N PRN Shortness 03/07/22 06/09/25 History breath activated powder inhaler Of Breath valacyclovir 1 gram tablet 1,000 mg PO DAILY PRN cold sores 01/06/25 06/09/25 History clobetasol 0.05 % topical ointment 1 applic topical NJ N 03/25/25 06/09/25 History hydrochlorothiazide 12.5 mg tablet 12.5 mg PO DAILY Le g swelling 03/25/25 06/11/25 History methylphenidate HCl 54 mg 54 mg PO DAILY 06/09/2505/26 History tablet,extended release 24 hr Allergies Allergy/AdvReac Type Severity Reaction Status Date / Time No Known Allergies Allergy Verified 06/11/25 07:06 Vital Signs Vital Signs - 24 hr 06/11/25 06:05 Pulse Rate 85 Respiratory Rate 16 Blood Pressure 145/84 H Pulse Oximetry 99 Oxygen Delivery Room Air Exam Narrative: Positive Long's bilaterally Positive Phalen's on left Normal sensation to light touch in palmar aspects of all fingers Good handgrip, intrinsic, and opponens pollicis strength Incision healing well with sutures in place Results Labs Labs: [facility] 06/11/25 06:23 Sodium 137 Potassium 3.5 Chloride 106 Carbon Dioxide 22 BUN 14 D Creatinine 0.70 Glucose 93 Calcium 8.8 Assessment and Plan Assessment and plan (1) Left carpal tunnel syndrome: Code(s): G56.02 - Carpal tunnel syndrome, left upper limb Status: Acute Plan Ms. Hopkins is a 39-year-old female with history of bilateral carpal tunnel symptoms, worse on the right, who has tried wrist splinting without improvement. Her symptoms are gradually worsening. She does have multiple objective findings consistent with carpal tunnel syndrome. She had any EMG with Dr. Way confirming severe bilateral carpal tunnel syndrome. She has now had right carpal tunnel release. I have offered her surgery in the form of left carpal tunnel release. We discussed surgery in detail including risks, expected recovery, and restrictions after surgery. She is very eager to proceed with this as discussed.
--- NOTE | 2025-06-11 07:18 | WPDHPUPDATE1 ---
History and Physical Update Update Date/Time: 06/11/25 07:18 History and Physical has been reviewed, including an updated exam of the patient. There are NO changes in the patient's condition. Risks, benefits, and alternatives have been discussed and questions answered. Patient agrees to proceed with procedure.
--- NOTE | 2025-06-11 07:19 | WPDHPUPDATE1 ---
History and Physical Update Update Date/Time: 06/11/25 07:19 History and Physical has been reviewed, including an updated exam of the patient. There are NO changes in the patient's condition. Risks, benefits, and alternatives have been discussed and questions answered. Patient agrees to proceed with procedure.
[2025-06-11] MEDS: ceFAZolin 3 GM/D5W 100 ML 100 ML IVPB (07:26)
[2025-06-11] MEDS: BACITRACIN OINTMENT 15 GM TUBE 1 APPLIC TOPICAL (07:41)
[2025-06-11 07:59] VITALS: BP 146/87; PULSE 87; RESP 15; O2SAT 100
[2025-06-11 08:02] LABS: BEDSIDEPREGUCG Negative (Negative)
--- NOTE | 2025-06-11 08:05 | P.OP_ITS ---
Procedure Note - Detailed Date of Procedure 06/11/25 Pre-op Diagnosis left carpal tunnel syndrome Post-op Diagnosis Same Procedure Performed Left carpal tunnel release Surgeon Marina Osullivan MD It [employer] Engineer Kunal CHEN Description of Procedure The patient was brought to the operating room where anesthesia was induced. The patient remained supine on the bed with the left arm extended onto an armboard. A straight incision on the ulnar side of the thenar crease in line with the anterior webspace between the third and fourth finger was planned. The hand and arm were prepped and draped in usual sterile fashion. Time-out was performed. The incision was injected local anesthetic. A 15 blade scalpel was used to open the incision. The bipolar was used to obtain hemostasis. A Metzenbaum scissor was used to bluntly separate the subcutaneous tissue until the flexor retinaculum was visualized. A self- retaining retractor was placed. A new 15 blade scalpel was then used to slowly open the flexor retinaculum, first extending distally until fat was identified. I then focused on the proximal opening of the carpal tunnel. Under direct visualization and using Metzenbaum scissors, the flexor retinaculum was opened proximally until the carpal tunnel was felt to be fully decompressed. The extent of the opening was checked again to confirm that the nerve was fully decompressed. The surgical site was copiously irrigated. Hemostasis was verified with the bipolar. The skin was closed with 3-0 nylon vertical mattress sutures which was then dressed with fluff gauze, Kerlix, and an Kenan bandage. The arm was placed into a sling. The patient was awakened from anesthesia and transferred to the PACU without incident. Billing code: [id number] Estimated Blood Loss 5 Drains No Packing No Pathology None sent Complications No immediate complications Condition Stable Disposition PACU [facility] Billing Surgery - Charge Forward: Surgery Billing
[2025-06-11 08:20] VITALS: BP 118/81; PULSE 70; RESP 18; O2SAT 100
[2025-06-11 08:45] VITALS: BP 118/76; PULSE 72; RESP 18; O2SAT 100
== END 2025-06-11 08:54 | disposition home or self-care (01) ==
PROVIDERS: Anesthesiology; PCP Physician Assistant; Visit Provider Neurological Surgery
PROC: (CPT 64721; principal; 2025-06-11 07:30)
DX: G56.02 Carpal tunnel syndrome, left upper limb (principal); J45.909 Unspecified asthma, uncomplicated; F32.A Depression, unspecified; F41.9 Anxiety disorder, unspecified; F90.9 Attention-deficit hyperactivity disorder, unspecified type; E66.9 Obesity, unspecified; Z68.42 Body mass index [BMI] 45.0-49.9, adult; Z79.51 Long term (current) use of inhaled steroids; Z98.890 Other specified postprocedural states; Z84.0 Family history of diseases of the skin and subcutaneous tissue; Z80.42 Family history of malignant neoplasm of prostate
CPT/HCPCS: 64721; 36415; 80048; A9270; J0690; J2003; J2250; J2405; J2704; J3010; J7120